=== PATIENT | female | born 1985 | race Caucasian/White ===

== ENCOUNTER → 2017-05-11 20:55 | Outpatient (CLI) | payer OTHER, SELFPAY ==
[2017-05-11 15:38] VITALS: BP 106/72; BMI 28.7
[2017-05-11 22:32] LABS: Chlamydia Trachomatis by PCR Negative (Negative); Neisserai gonorrhoeae by PCR Negative (Negative); Probe Check PASS; Sample Adequacy Control PASS; Specimen Processing Control PASS
== END ==
PROVIDERS: Family Provider Family Medicine; PCP Family Medicine; Visit Provider Nurse Practitioner Women's Health
DX: Z11.3 Encounter for screening for infections with a predominantly sexual mode of transmission (principal); Z12.4 Encounter for screening for malignant neoplasm of cervix
CPT/HCPCS: 87491; 87591

== ENCOUNTER → 2018-10-21 | Outpatient (CLI) | payer OTHER, SELFPAY ==
[2018-10-15 11:13] VITALS: BMI 28.7
--- NOTE | 2018-10-21 08:35 | RAD_ITS ---
STUDY: X-RAY - ESOPHAGUS (BARIUM SWALLOW) WITH FLUOROSCOPY REASON FOR EXAM: Female, 33 years old. Dysphagia. Chronic heartburn. TECHNIQUE: 18 view(s) of the esophagus were obtained following swallowing of barium. FLUOROSCOPY TIME (if supplied): (0:28) minutes/seconds COMPARISON: None. FINDINGS: There is no demonstrated esophageal foreign body. There is no demonstrated stricture or mucosal abnormality. Normal gastroesophageal junction, without a demonstrated hiatal hernia. The patient ingested a 12 mm tablet of barium without any difficulty. Normal visualized aortic arch and descending thoracic aorta. Normal visualized pulmonary parenchyma. Normal visualized osseous structures of the thorax. RAD/Esophagus Only IMPRESSION: Normal plain film x-ray examination (barium swallow) of the esophagus. Electronically Signed: Bautista Navarro, at 14:47 EDT , Service support ,
== END | disposition home or self-care (01) ==
PROVIDERS: Family Provider Internal Medicine; PCP Internal Medicine; Referring Provider Otolaryngology; Visit Provider Otolaryngology
DX: R13.10 Dysphagia, unspecified (principal)
CPT/HCPCS: 74220

== ENCOUNTER → 2019-10-03 18:16 | Outpatient (CLI) | payer OTHER, SELFPAY ==
[2019-10-03 10:29] VITALS: BMI 24.0
[2019-10-03 13:43] VITALS: BMI 28.7
== END ==
PROVIDERS: PCP Internal Medicine; Visit Provider Nurse Practitioner Family
DX: Z20.828 Contact with and (suspected) exposure to other viral communicable diseases (principal); J02.9 Acute pharyngitis, unspecified; R05 Cough
CPT/HCPCS: 87635; G2023; U0003

== ENCOUNTER → 2020-01-26 15:39 | Outpatient (CLI) | payer OTHER, SELFPAY ==
[2020-01-26 14:26] VITALS: BMI 25.3
[2020-01-26 16:03] LABS: Absolute Lymphocyte Count 2.95 X10^3/uL (0.83-4.51); Absolute Neutrophil Count 10.9 X10^3/uL (2.0-7.7); Basophil# 0.05 X10^3/uL; Basophil% 0.3 % (0-1); Eosinophils% 0.7 % (0-5); Hematocrit 38.2 % (37-47); Hemoglobin 13.1 g/dL (12.0-15.0); Lymphocyte # 2.95 X10^3/ul (4.0); Lymphocyte % 19.7 % (19-41); Mean Corp Hgb Conc 34.3 g/dL (32-36); Mean Corpuscular Hgb 30.4 pg (27.0-32.0); Mean Corpuscular Volume 88.6 fL (81-99); Mean Platelet Vol. 10.9 fl (6.2-12.0); Monocyte# 0.93 X10^3/uL; Monocyte% 6.2 % (0-10); NRBC Flagged by Analyzer 0 % (0-5); Neutrophil # 10.89 X10^3/uL (2.7-7.7); Neutrophil % 72.6 % (47-70); Platelet Count 317 K/mm3 (150-450); Red Blood Count 4.31 M/mm3 (4.2-5.4)
[2020-01-26 18:18] LABS: Amphetamine Urine VISTA NEGATIVE (<1000 ng/mL); Barbiturate Urine VISTA NEGATIVE (< 200 ng/mL); Benzodiazepine Urine VISTA NEGATIVE (< 200 ng/mL); Cocaine Urine VISTA NEGATIVE (< 300 ng/mL); Ecstacy Urine VISTA NEGATIVE (< 500 ng/mL); Methadone Urine VISTA NEGATIVE (< 300 ng/mL); PCP Urine VISTA NEGATIVE (< 25 ng/mL); THC Urine VISTA NEGATIVE (< 50 ng/mL); Vista UDS pH Range 6
[2020-01-27 09:29] LABS: HIV - WCH Non-Reactive (Nonreactive); Hepatitis B Surface Antigen Non-Reactive (Nonreactive); Hepatitis C Antibody Non-Reactive (Nonreactive); Rubella IgG 59.2 IU/mL
[2020-01-31 03:06] LABS: Chlamydia By Nucleic Acid AMP Negative (Negative)
[2020-01-31 12:06] LABS: Gonococcus By Nucleic Acid AMP Negative (Negative)
[2020-02-02 01:11] LABS: Rapid Plasmin Reagin (RPR) NONREACTIVE (NONREACTIVE)
== END ==
PROVIDERS: PCP Internal Medicine; Referring Provider Obstetrics & Gynecology; Visit Provider Obstetrics & Gynecology
DX: O09.90 Supervision of high risk pregnancy, unspecified, unspecified trimester (principal); Z3A.00 Weeks of gestation of pregnancy not specified
CPT/HCPCS: 36415; 80307; 85025; 86592; 86703; 86762; 86803; 86850; 86900; 86901; 87086; 87088; 87340; 87491; 87591

== ENCOUNTER → 2020-02-07 10:32 | Outpatient (CLI) | payer OTHER, SELFPAY | PROVIDERS: PCP Internal Medicine; Referring Provider Physician Assistant; Visit Provider Physician Assistant | DX: Z20.828 Contact with and (suspected) exposure to other viral communicable diseases (principal) | CPT/HCPCS: 87635; C9803; U0003 ==

== ENCOUNTER → 2020-05-14 09:18 | Outpatient (CLI) | payer OTHER, SELFPAY ==
[2020-05-14 08:07] VITALS: BMI 28.7
[2020-05-14 10:00] LABS: Absolute Lymphocyte Count 1.64 X10^3/uL (0.83-4.51); Absolute Neutrophil Count 9.1 X10^3/uL (2.0-7.7); Basophil# 0.04 X10^3/uL; Basophil% 0.3 % (0-1); Eosinophil# 0.07 X10^3/uL; Eosinophils% 0.6 % (0-5); Hematocrit 36.5 % (37-47); Hemoglobin 12.3 g/dL (12.0-15.0); Lymphocyte # 1.64 X10^3/ul (4.0); Lymphocyte % 14.1 % (19-41); Mean Corp Hgb Conc 33.7 g/dL (32-36); Mean Corpuscular Hgb 30.3 pg (27.0-32.0); Mean Corpuscular Volume 89.9 fL (81-99); Mean Platelet Vol. 11.3 fl (6.2-12.0); Monocyte# 0.65 X10^3/uL; Monocyte% 5.6 % (0-10); NRBC Flagged by Analyzer 0 % (0-5); Neutrophil # 9.11 X10^3/uL (2.7-7.7); Neutrophil % 78.2 % (47-70); Platelet Count 279 K/mm3 (150-450); RBC Distribution Width CV 12.2 % (11.6-14.6); RBC Distribution Width SD 39.9 fl (35.1-43.9); Red Blood Count 4.06 M/mm3 (4.2-5.4); White Blood Count 11.7 K/mm3 (4.4-11.0)
[2020-05-14 10:15] LABS: Fibrinogen 457 mg/dl (203-444)
== END ==
PROVIDERS: PCP Internal Medicine; Referring Provider Obstetrics & Gynecology; Visit Provider Obstetrics & Gynecology
DX: O46.90 Antepartum hemorrhage, unspecified, unspecified trimester (principal); Z3A.00 Weeks of gestation of pregnancy not specified
CPT/HCPCS: 36415; 85025; 85384

== ENCOUNTER → 2020-05-18 07:33 | Outpatient (CLI) | payer OTHER, SELFPAY ==
[2020-05-14 08:07] VITALS: BMI 28.7
[2020-05-18 08:16] LABS: Glucose Challenge Gest 1H 50g 81 mg/dL (70-140)
== END ==
PROVIDERS: PCP Internal Medicine; Referring Provider Obstetrics & Gynecology; Visit Provider Obstetrics & Gynecology
DX: Z34.90 Encounter for supervision of normal pregnancy, unspecified, unspecified trimester (principal)
CPT/HCPCS: 36415; 82950

== ENCOUNTER → 2020-07-19 | Outpatient (CLI) | payer OTHER, SELFPAY ==
[2020-07-18 16:30] VITALS: BMI 29.2
[2020-07-19 19:26] LABS: Probe Check PASS; Specimen Processing Control PASS
== END | disposition home or self-care (01) ==
LOC: LABSPEC 17:54
PROVIDERS: PCP Internal Medicine; Visit Provider Physician Assistant
DX: J06.9 Acute upper respiratory infection, unspecified (principal)
CPT/HCPCS: 87635; U0002

== ENCOUNTER → 2020-07-27 14:10 | Outpatient (CLI) | payer OTHER, SELFPAY ==
[2020-06-21 09:37] VITALS: BMI 29.5
[2020-07-20 15:51] VITALS: BMI 29.4
--- NOTE | 2020-07-27 14:11 | US_ITS ---
STUDY: SECOND AND THIRD TRIMESTER OBSTETRICAL ULTRASOUND REASON FOR EXAM: Female, 35 years old, evaluate growth. LMP: Unknown. TECHNIQUE: Transabdominal TECHNICAL QUALITY: Adequate. PRIOR ULTRASOUND: None. FINDINGS: There is a single intrauterine fetus. The fetus is in a cephalic presentation. There is demonstrated cardiac activity with a heart rate of 137 bpm. There is a normal amniotic fluid volume. The largest amniotic fluid pocket measures 3.4 cm. The amniotic fluid index (HARLEEN) is 8.9 cm. The placenta is fundal in location. There are Grade 1 placental changes. The cervix measures 3.9 cm in length. The adnexal regions are not visualized. BIOMETRY: BPD: 8.6 cm: 34 weeks, 3 days HC: 32.8 cm: 37 weeks, 1 days AC: 34.3 cm: 38 weeks, 1 days FL: 6.8 cm: 35 weeks, 0 days CI: 76.29% FL/BPD: 79.65% FL/HC: 20.81% FL/AC: 19.88% HC/AC: 0.96 age by current US: 36 weeks, 2 days. LOBITO by current US: 08/22/2020. Estimated weight: 3048 grams, +/- 457 grams. ANATOMY: anatomy is not included on this examination and is not evaluated. US/OB Limited With Biometrics IMPRESSION: Single live intrauterine fetus in cephalic presentation with an estimated gestational age of 36 weeks and 2 days. Electronically Signed: Geovanny Calix MD at 15:56 EDT Tel , Service support ,
== END ==
PROVIDERS: PCP Internal Medicine; Referring Provider Obstetrics & Gynecology; Visit Provider Obstetrics & Gynecology
DX: O09.519 Supervision of elderly primigravida, unspecified trimester (principal); Z3A.00 Weeks of gestation of pregnancy not specified
CPT/HCPCS: 76816; 87081

== ENCOUNTER → 2020-08-17 16:41 | Outpatient (CLI) | payer OTHER, SELFPAY ==
[2020-07-20 15:51] VITALS: BMI 29.4
[2020-08-17 15:44] VITALS: BMI 30.6
== END ==
PROVIDERS: PCP Internal Medicine; Visit Provider Obstetrics & Gynecology
DX: Z34.93 Encounter for supervision of normal pregnancy, unspecified, third trimester (principal)
CPT/HCPCS: 87635; C9803; U0002

== ENCOUNTER 2020-08-19 11:35 | Outpatient (CLI) | payer OTHER, SELFPAY ==
[2020-08-17 15:44] VITALS: BMI 30.6
[2020-08-19 11:57] VITALS: BP 113/75; PULSE 90
[2020-08-19 12:00] VITALS: TEMP 37.1
[2020-08-19 12:01] VITALS: BMI 29.8
--- NOTE | 2020-08-20 21:16 | OB.TRI.PN ---
Progress Notes Date of Service: 08/19/20 Progress Note: Patient presents for triage evaluation secondary to dec fm FHT: 120 Moderate variability reactive no decelerations category I tracing [place]: no regular Contractions Assessment and plan: dec fm, now feeling Reactive NST, reassuring maternal and status patient discharged to home to follow-up as scheduled. See problem list details for additional plan information. Assessment & Plan Assessment/Plan (1) Decreased movements in third trimester: QUALIFIERS: Fetus number: single or unspecified fetus Qualified Code(s): O36.8130 - Decreased movements, third trimester, not applicable or unspecified PLAN: reactive nst Procedures Urinary/Genital 52xxx-59xxx: 34241-26 non-stress test Interp
== END 2020-08-19 12:40 | disposition home or self-care (01) ==
LOC: WPOUT 11:46 → WP 11:47
PROVIDERS: PCP Internal Medicine; Visit Provider Obstetrics & Gynecology
DX: O36.8130 Decreased fetal movements, third trimester, not applicable or unspecified (principal); Z3A.00 Weeks of gestation of pregnancy not specified
CPT/HCPCS: 59025; 59050; 99218; G0378

== ENCOUNTER → 2020-08-24 07:28 | Outpatient (CLI) | payer OTHER, SELFPAY ==
[2020-08-17 15:44] VITALS: BMI 30.6
[2020-08-19 12:01] VITALS: BMI 29.8
--- NOTE | 2020-08-24 07:33 | US_ITS ---
STUDY: SECOND AND THIRD TRIMESTER OBSTETRICAL ULTRASOUND - LIMITED REASON FOR EXAM: Female, 35 years old routine survey LMP: 11/18/2019 PRIOR ULTRASOUND: 07/27/2020 TECHNIQUE: Transabdominal TECHNICAL QUALITY: Adequate. FINDINGS: There is a single intrauterine fetus. The fetus is in a cephalic presentation. There is demonstrated cardiac activity with a heart rate of 133 bpm. There is a normal amniotic fluid volume. The largest amniotic fluid pocket measures 3.0 cm. The amniotic fluid index (HARLEEN) is 6.6 cm. The placenta is fundal in location. There are Grade 2 placental changes. The cervix was not measured BIOMETRY: BPD: 9.4 cm: 38 weeks, 3 days HC: 35.4 cm: 41 weeks, 3 days AC: 35.2 cm: 39 weeks, 1 days FL: 7.6 cm: 38 weeks, 5 days Age by LMP: 40 weeks, 0 days. LOBITO by LMP: 08/23/2020. age by prior US: 40 weeks, 1 days. LOBITO by prior US: 08/22/2020. age by current US: 39 weeks, 3 days. LOBITO by current US: 08/28/2020. Estimated weight: 3706 grams, +/- 541 grams, 58 percentile. Gender: Indeterminant Incidental note is made of bilateral hydroceles within the scrotum US/OB Limited With Biometrics IMPRESSION: Single live intrauterine at 39 weeks, 3 days with heart rate of 133 bpm. LOBITO of 08/28/2020. Normal growth noted since the previous study. Incidental note is made of scrotal hydroceles Electronically Signed: Miguel Richard MD at 10:35 EDT , Service support ,
== END ==
PROVIDERS: PCP Internal Medicine; Referring Provider Obstetrics & Gynecology; Visit Provider Obstetrics & Gynecology
DX: O48.0 Post-term pregnancy (principal); Z3A.00 Weeks of gestation of pregnancy not specified
CPT/HCPCS: 76816

== ENCOUNTER 2020-08-24 18:45 | Inpatient (IN) | payer OTHER, SELFPAY ==
[2020-08-24 08:23] VITALS: BMI 29.8
[2020-08-24 19:38] VITALS: BMI 29.3
[2020-08-24 19:43] VITALS: BP 126/81; PULSE 73
[2020-08-24 19:45] VITALS: PULSE 80; TEMP 37.3; O2SAT 99
[2020-08-24] MEDS: Lactated Ringers 1,000 ML 50 ML IV (19:45)
[2020-08-24 20:00] LABS: Absolute Lymphocyte Count 1.87 X10^3/uL (0.83-4.51); Basophil# 0.03 X10^3/uL; Basophil% 0.3 % (0-1); Eosinophil# 0.06 X10^3/uL; Eosinophils% 0.6 % (0-5); Hematocrit 35.1 % (37-47); Lymphocyte # 1.87 X10^3/ul (0.83-4.51); Lymphocyte % 17.2 % (19-41); Mean Corp Hgb Conc 34.2 g/dL (32-36); Mean Corpuscular Hgb 30.5 pg (27.0-32.0); Mean Corpuscular Volume 89.1 fL (81-99); Mean Platelet Vol. 12.1 fl (6.2-12.0); Monocyte# 0.79 X10^3/uL; Monocyte% 7.3 % (0-10); NRBC Flagged by Analyzer 0 % (0-5); Neutrophil # 8.02 X10^3/uL (2.7-7.7); Neutrophil % 73.7 % (47-70); Platelet Count 233 K/mm3 (150-450); RBC Distribution Width CV 12.6 % (11.6-14.6); RBC Distribution Width SD 41.3 fl (35.1-43.9); Red Blood Count 3.94 M/mm3 (4.2-5.4); White Blood Count 10.9 K/mm3 (4.4-11.0)
[2020-08-24 20:11] VITALS: PULSE 90; O2SAT 98
[2020-08-24] MEDS: miSOPROStol 25 MCG TABLET VAGINAL (20:58)
[2020-08-24] MEDS: DiphenhydrAMINE 50 MG/ML Syringe IV (21:16)
[2020-08-24] MEDS: Famotidine 20 MG Tablet PO (21:16)
[2020-08-24 21:24] VITALS: BP 126/79; PULSE 75
[2020-08-24 21:25] VITALS: PULSE 85; TEMP 36.6; O2SAT 100
[2020-08-24] MEDS: Mag Hydrox/Al Hydrox/Simeth 30 ML UDC PO (23:25)
[2020-08-25] VITALS (54 sets, daily range): BP systolic 108–142; BP diastolic 58–87; PULSE 74–129; RESP 16–18; TEMP 36.1–37.7; O2SAT 83–100
--- NOTE | 2020-08-25 | PLAC_PTH ---
PATIENT: AMY REDDY LOC: [facility] U#:[id number] AGE/SX: 35/F ROOM: WP020 RE08/24/[address]: Dr. Nelly Walker MD : 1985 BED: 1 DIS: 08/27/2020 SPEC #: [id number] RECD: 08/25/20 17:45 STATUS: SHANIA MCNAMARA #: [id number] CRYS: 08/25/20 00:[address]: Nelly Walker DEPT: SURGICAL PATHOLOGY RECD BY: Tomer Lynch ENTERED: 08/27/20 07:52 SP TYPE: PLACENTA OTHR DR: Dr. Dwight Rios MD Tissues: Placenta, NOS Procedures: Surgery Specimen Level V HEADER OPERATION: Primary section PRE-OP DIAGNOSIS: Labor TISSUE SUBMITTED: Placenta MICROSCOPIC DIAGNOSIS Placenta: Placental disc - third trimester placenta (435 gm). Membranes - no pathologic diagnosis. Umbilical cord - three blood vessels and no pathologic diagnosis. MADELINE:valentine 08/28/2020 MICROSCOPIC DESCRIPTION Slides are reviewed. GROSS DESCRIPTION SPECIMEN: PLACENTA / CLINICAL INFORMATION: A. Weight: 3.35 kg B. Gestational Age: 40 weeks C. Sex: Male PLACENTAL WEIGHT (POST FIXATION): 435 gm PLACENTAL DIMENSIONS: 17 x 17 x 3 cm PLACENTAL SHAPE: Usual ovoid PLACENTAL WEIGHT FOR GESTATIONAL AGE: Within 10-99th percentile MEMBRANES - Present A. Insertion: Marginal B. Site of rupture from edge: 9 cm from edge of placental disc C. Color of membrane: Givens-dominguez D. Abnormalities: None UMBILICAL CORD - Present A. Color: Givens-dominguez B. Insertion: Paracentral C. Length: 48 cm D. Diameter: Up to 1.5 cm E. Number of vessels: Three F. Abnormalities: None PLACENTAL DISC - Present A. Color of surface: Givens-dominguez B. surface abnormalities: None C. Maternal cotyledons: Intact with minimal tears D. Attached retro placental clot: No clot E. Cut surface: Dark red and spongy F. Lesions: None G. Separate clot: Absent SECTIONS SUBMITTED: 1. Membrane roll 2. Cord, maternal end 3. Cord, end 4. Placental disc, and maternal surfaces 5. Placental disc, and maternal surfaces 6. Placental disc, and maternal surfaces SJ:valentine 08/27/20 TC:4 CPT: 27802
[2020-08-25] MEDS: miSOPROStol 25 MCG TABLET VAGINAL ×3 (01:04→09:47)
[2020-08-25] MEDS: Acetaminophen 500 MG Tablet 1000 MG PO ×2 (01:46→17:46)
[2020-08-25] MEDS: 0.9% Saline Lock 10 ML Syringe IV ×2 (07:38→09:36)
--- NOTE | 2020-08-25 07:49 | HP.PCM_ITS ---
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 Required: No Is patient in pain?: No Allergies Penicillins Allergy (Verified 08/19/20 12:04) Rash Sulfa (Sulfonamide Antibiotics) Allergy (Verified 08/19/20 12:04) Rash Medications multivitamin no.47-iron fum 27 mg-folate no.1 1 mg-dha 300 mg capsule 1 cap PO DAILY 01/16/20 [History Confirmed 08/24/20] ondansetron 4 mg disintegrating tablet 4 mg PO Q8H PRN #30 tab 02/22/20 [Rx Confirmed 08/24/20] famotidine 20 mg tablet 20 mg PO BID #60 tab 06/21/20 [Rx Confirmed 08/24/20] docusate sodium [Colace Clear] 1 mg PO DAILY 08/19/20 [History Confirmed 08/24/20] Last Menstral Period: 11/26/19 Zika: Zika virus screening: Negative : No PFSH PFSH Medical History (Updated 08/24/20 @ 09:[address] Nelly Walker MD) Anxiety Frequent UTI GERD (gastroesophageal reflux disease) Family History Unknown Ovarian cancer Grandfather Alcohol abuse Mother Anemia Anxiety Grandmother Pancreatic cancer Grandmother Diabetes Heart disease Father Hypertension Social History Smoking Status: Never smoker second hand exposure: No alcohol intake: current alcohol intake frequency: holidays/special occasions only substance use type: does not use caffeine: Yes what type of physical activity do you participate in: running, bicycling, yoga and weight training frequency: daily seatbelt use: always do you feel safe at home: Yes additional social history: - 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 OB Visit LOBITO Calculator Estimated Delivery Date Method Current WG Current Estimate 08/24/20 Ultrasound #1 40w 0d Other Estimates 09/01/20 LMP (Certain) 38w 6d Expected Delivery Route/Plan by 40-41, recommend NST and HARLEEN at 40 if goes to 41 Labor Preferences- CB/BF classes: 07/14 labor support person: yoselyn labor intervention preferences: none pain management options preferred: open cut cord/dad catch: yes : yes PP control planned: IUD at 6w PP visit discussed possible routes of delivery and associated risks: discussed possible delivery modalities and possible indications for each including R/B/A of , VAVD, and CS. questions answered. special requests: Specific Issue/Plans flu vaccine: decline tdap vaccine: given rhogam: na LARC form signed: declined movement and labor precautions reviewed. Problem list reviewed and updated with the most current plan of care details and appropriate orders placed. Relevant counseling for the gestational age provided. Continue routine care and follow up unless otherwise noted in visit notes/problem list details Initial Weight: 140 lb Date EGA Weight BP Urine Prot Glucose FHR FuHt Pres Dilation Effaced St Visit Note 01/26/20 9w 6d 143 lb 4 oz (+3 lb 4 oz) 122/76 185 GP -CRL 27mm NOT consistent with LMP. Due date changed. 02/22/20 13w 5d 147 lb 6 oz (+7 lb 6 oz) 126/80 Negative Negative 150 GP - no cramping or bleeding. Having continued nausea. Zofran prescribed. Anatomy scan ordered. 03/21/20 17w 5d 148 lb (+8 lb) 120/82 Negative Negative 155 GP - no cramping or bleeding. Anatomy scan scheduled. Answered questions about exercise in . 04/20/20 22w 0d 155 lb (+15 lb) 104/80 Negative Negative 150 SM- no vb lof good fm no regular ctx obtain anatomy scan 05/14/20 25w 3d 162 lb (+22 lb) 114/74 145 25 0 SM- add on for acute bleeding- had a lot of vomiting this weekend and has been lifting and moving, no intercourse. rh pos. brown/pink discharge no heavy bleeding or clots. good fm no regular ctx 05/18/20 26w 0d 163 lb (+23 lb) 100/72 Negative Negative 140 SM- no vb lof good fm no regular ctx 06/08/20 29w 0d 166 lb (+26 lb) 124/80 Negative Negative 140 29 SM- no vb lof good fm no reuglar ctx 06/21/20 30w 6d 166 lb 8 oz (+26 lb 8 oz) 120/80 Negative Negative 140 31 GP - no LOF, VB, DFM, ctx. LARC form signed. 07/05/20 32w 6d 165 lb 4 oz (+25 lb 4 oz) 118/70 Negative Negative 125 32 GP - no LOF, VB, DFM, ctx. Denies complaints. 07/20/20 35w 0d 166 lb (+26 lb) 132/80 140 35 SM- no vb lof good fm no regular ctx reviewed labor precautions 07/27/20 36w 0d 173 lb (+33 lb) 124/80 125 36 Cephalic 0 GP - no LOF, VB, DFM, ctx. GBS done today. Growth US and HARLEEN nl. 08/03/20 37w 0d 171 lb (+31 lb) 114/66 Negative Negative 135 37 Cephalic GP - no LOF, VB, DFM, ctx. Denies complaints. 08/10/20 38w 0d 171 lb (+31 lb) 132/88 125 38 Cephalic SM- no vb lof good fm no regular ctx discussed IOL 40-41 weeks 08/17/20 39w 0d 173 lb (+33 lb) 114/80 Negative Negative 135 39 Cephalic 0 SM- no vb lof good fm no regular ctx. discussed exp mgt vs IOL. plan growth us and nst at 40 weeks 08/24/20 40w 0d 172 lb (+32 lb) 118/82 Negative Negative 135 Cephalic 0 0 -3 SM- no vb lof good fm no regular ctx, borderline low HARLEEN discussed IOL. plan cytotec ACOG First Trimester First Trimester: Desire for , Alcohol, Tobacco Cessation, Illicit/Recreational Drug/Substance Use, Intimate Partner Violence, Barriers to care, Unstable Housing, Communication Barriers, Environmental/Work Hazards, Anticipated Course of Care, Toxoplasmosis Precations, Use of Any medications, Sexual activity, Exercise, Dental Care, Sauna/Hot tub use, Seat Belt use, Childbirth classes/Hospital facilities, , Travel, Indications for Ultrasound and Screening for Aneuploidy Second Trimester Second Trimester: Signs and Symptoms of Labor, Selecting a care provider, Reproductive Life Planning & Contreception, Care Planning, Tobacco Cessation, Depression/Anxiety and Intimate Partner Violence Third Trimester Third Trimester: Pain Management Plans, Labor support person(s), Immediate Larc, Movement Monitoring and Infant Feeding Yes ; Discussed Trial of Labor after Counseling and Discussed Circumcision preference Diagnostics Diagnostics Diagnostics: No Data to Display ROS Const Reports system reviewed and no additional complaints, except as documented Card Reports system reviewed and no additional complaints, except as documented Resp Reports system reviewed and no additional complaints, except as documented GI Reports system reviewed and no additional complaints, except as documented and Reports nausea Reports system reviewed and no additional complaints, except as documented Musc Reports system reviewed and no additional complaints, except as documented Exam Const General: cooperative, healthy appearing, comfortable and anxious HENMT Head: normal to inspection Nose: external nose normal Face and sinus: normal facial exam Neck Neck: normal visual inspection, full ROM and no lymphadenopathy Thyroid: thyroid normal Chest Chest palpation & inspection: normal inspection of the chest Resp Effort & Inspection: normal respiratory effort GI Inspection: normal to inspection Palpation: soft and other (gravid uterus) Other: infant vertex and appropriate size for gestational age Other: Cervical Exam: Extrem General: pedal edema Results POC Urinalysis 2 Dip (Clinic) Office Urine Glucose Negative Last Edit by Arleen Nash on 08/24/20 08:24 Office Urine Protein Negative Last Edit by Arleen Nash on 08/24/20 08:24 Coding Level of Care Code OB Routine Diagnoses Decreased movements in third trimester O36.8130 Fetus number: single or unspecified fetus 33 weeks gestation of Z3A.33 Supervision of high risk , antepartum O09.90 Z3A.40 Weeks of gestation: 40 weeks AMA (advanced maternal age) primigravida 35+ O09.513 Trimester: third trimester GERD (gastroesophageal reflux disease) K21.9 Esophagitis presence: without esophagitis HARLEEN (amniotic fluid index) borderline low O28.8 Assessment and Plan Assessment and Plan (1) Decreased movements in third trimester: Status: Acute Qualifiers: Fetus number: single or unspecified fetus Qualified Code(s): O36.8130 - Decreased movements, third trimester, not applicable or unspecified Comment: reactive NST, kick counts. 08/19 (2) 33 weeks gestation of : Status: Acute Comment: COVID test ordered 07/11/20 (mer 08/17 at 4:30pm) (3) Supervision of high risk , antepartum: Status: Acute Comment: PRR LOBITO 08/24/20 [place]! Spouse:Yoselyn (4) : Status: Acute Qualifiers: Weeks of gestation: 40 weeks Qualified Code(s): Z3A.40 - 40 weeks gestation of Comment: declined genetic, carrier and NTD. NL anatomy. gbs negative. (5) AMA (advanced maternal age) primigravida 35+: Status: Acute Qualifiers: Trimester: third trimester Qualified Code(s): O09.513 - Supervision of elderly primigravida, third trimester Comment: growth scan at 36 weeks (6) GERD (gastroesophageal reflux disease): Status: Chronic Qualifiers: Esophagitis presence: without esophagitis Qualified Code(s): K21.9 - Gastro-esophageal reflux disease without esophagitis Comment: pepcid Plan - Dr. Nelly Walker MD: Patient presents IOL, plan management for with .cytotec Pain management: plans epidural. GBS negative. Management of any complications: ama, borderline low harleen I have reviewed the [facility] and made any clinically relevant updates.
[2020-08-25] MEDS: Lactated Ringers 500 ML 999 ML IV ×2 (09:37→11:05)
[2020-08-25] MEDS: Terbutaline 1 MG/ML Vial 0.25 MG SC (11:12)
--- NOTE | 2020-08-25 11:38 | PN_ITS ---
Progress Note IV fluid bolus oxygen AROM thick meconium FSE and IUPC placed. Terbutaline given for suspected hyperstimulation current tracing: FHT: 160 Moderate variability reactive no decelerations category II tracing [place]: Contractions q 2-3 reviewed tracing abnormalities since last note: Period of absent to minimal variability with recurrent late decelerations, resolved with terbutaline and other interventions. Minimal variability still present but no recurrent decelerations. Huddle performed with nursing and will manage expectantly and reevaluate shortly to determine if additional interventions or delivery modality needs to be addressed. A/P: Category 2 tracing, physician in-house monitoring tracing and reviewing with nursing. s/p terb and IVF, position changes, oxygen, internal monitors placed.
[2020-08-25] MEDS: Ondansetron 4 MG/2 ML Vial IV (11:50)
[2020-08-25] MEDS: fentaNYL-bupivacaine (epidural) 100 ML BAG EPIDURAL (12:32)
[2020-08-25] MEDS: Lactated Ringers 1,000 ML 200 ML IV (12:33)
--- NOTE | 2020-08-25 13:20 | EX.PCM.OBRPT ---
Assessment & Plan (1) Category II heart rate tracing during labor and delivery: (2) AMA (advanced maternal age) primigravida 35+: QUALIFIERS: Trimester: third trimester Qualified Code(s): O09.513 - Supervision of elderly primigravida, third trimester COMMENT: growth scan at 36 weeks (3) : QUALIFIERS: Weeks of gestation: 40 weeks Qualified Code(s): Z3A.40 - 40 weeks gestation of COMMENT: declined genetic, carrier and NTD. NL anatomy. gbs negative. (4) Supervision of high risk , antepartum: COMMENT: PRR LOBITO 08/24/20 [place]! Spouse:Bertrand (5) 33 weeks gestation of : COMMENT: COVID test ordered 07/11/20 (on license of [facility] 08/17 at 4:30pm) (6) HARLEEN (amniotic fluid index) borderline low: COMMENT: recommend IOL 40 weeks due to AMA and this (7) GERD (gastroesophageal reflux disease): QUALIFIERS: Esophagitis presence: without esophagitis Qualified Code(s): K21.9 - Gastro-esophageal reflux disease without esophagitis COMMENT: pepcid Maternal Data Information LOBITO Calculator Estimated Delivery Date Method Current WG Current Estimate 08/24/20 Ultrasound #1 40w 1d Other Estimates 09/01/20 LMP (Certain) 39w 0d Final LOBITO Source: LMP Gestational age: 39 Details Operative Information Date of Procedure: 08/25/20 Pre-Operative Diagnosis: iol AMA/borderline HARLEEN Post-Operative Diagnosis: same Indications for : Nonreassuring Status (persistent Cat II tracing) Indications Narrative: 35-year-old G1, P0 presents at 40 weeks for induction of labor secondary to advanced maternal age and borderline HARLEEN. Patient underwent Cytotec induction of labor and then developed absent to minimal variability with recurrent decelerations. Patient was given terbutaline and interventions were done to resolve the tracing which decelerations resolved and moderate variability was present. Expectant management was performed and then recurrent late decelerations returned with minimal variability, no accelerations with scalp stimulation and patient was still remote from delivery 1-2 50 and -2. Decision was made to proceed with primary low transverse . Classification: JOHNIE Procedure Type: low transverse mine analyst #1: Betty Caceres Type of Anesthesia: Epidural Special Medications: none Antibiotic Given: Clindamycin 600mg IV x1 and Gentamicin 1.5mg/kg IV x1 and Zithromax 500 mg/5 mL X1 Drain: Landis to straight drain Estimated Blood Loss: 600 Fluids Replaced: crystalloid Findings Description of Procedure: The patient was placed in the dorsal supine position with leftward tilt. Patient was prepped and draped in the normal sterile fashion. Pfannenstiel skin incision was made with the scalpel and carried through to the underlying layer of fascia with the scalpel. Fascia was nicked in the midline and the incision extended laterally. The rectus bellies were dissected off superiorly and inferiorly with out complication both sharply and bluntly. The peritoneum was entered digitally. The incision was stretched and a low transverse uterine incision was made with the scalpel. The infant's head was delivered atraumatically followed by the anterior and posterior shoulders without complication the rest of the delivered. The cord was clamped and cut and the was handed off to awaiting nurse. The placenta was delivered spontaneously immediately following and was noted to be intact and have a three-vessel cord. The uterus was exteriorized cleared of all clots and debris, and the incision was closed in a double layer closure using #1 Monocryl. The ovaries and fallopian tubes were noted to be within normal limits. The uterus was returned to the maternal abdomen and gutters were cleared of all clots and debris. The peritoneum was closed with 3-0 Monocryl in a running fashion. Gloves were changed prior to fascial closure. Fascia was closed with 0 PDS in a running fashion. Subcutaneous tissue was copiously irrigated and the skin was closed with 3-0 Monocryl in a subcuticular fashion. Mepilex dressing was applied without complication. Patient was taken to recovery in stable condition. It was discussed with the patient that based on the clinical information obtained during this encounter, combined with her history, at this time I would recommend vaginal or cesareans for future deliveries if further pregnancies are desired. Amniotic Membrane Rupture Type: Artificial Amniotic Fluid Description: Thick meconium Placental Delivery Description: Spontaneous Placenta Disposition: [facility] Cord Vessel Description: 3 Vessels Cord Entanglement: None Cord Gases: ABG and VBG Infant A Gender: Male Delayed Cord Clamping: Yes Complications Risks of Surgery Discussed w/Patient: Bleeding, Infection, Need for Future C-Sections and Injury to surrounding structure(s) including bowel and bladder Complications: none Vaginal Delivery Complication Complications: None Admit VTE Documentation VTE Present on Admission: No VTE Mechan Device Prophylaxis: SCD's Procedures Urinary/Genital 52xxx-59xxx: [id number] [facility]
--- NOTE | 2020-08-25 14:05 | DCINST_ITS ---
Discharge Instructions Diet Discharge Diet: No restrictions Activity Discharge Activity: May Not Drive (for 2 weeks), May not drive while taking narcotic pain medications., May Shower and May Take a Tub Bath (in 7 days) May shower in (days): 0 May resume sexual activity in: 4-6 weeks Weight Bearing Status: Full weight bearing Lifting Restrictions: 20 pounds Dressing / Incision Call your doctor if your incision/area has: Continuous Slow Oozing, Sudden Increased Bleeding, Increased Pain/ Swelling, Increased Redness and Foul Smel ling Discharge Call your doctor if you observe: Fever of 101 or Higher and Using more than one pad per hour (for 2 hours) Suture Line Care: Avoid Pulling/Pushing and Avoid Pinching/Bending Cleanse incision/area with: Soap & Water and Keep Dressing Clean & Dry Follow Up Care Please Follow Up With: Nelly Walker MD When: Call [phone] to make an appointment for an incision check in 1-2 weeks. Test Results: Test results from this visit will be discussed in further detail at your follow-up appointment, if applicable. Discharge Plan Admission Admit Date/Time: 08/24/20 18:45 Primary Reason for Your Visit: delivery Attending Provider: Nelly Walker Primary Care Provider: Dwight Rios Discharge Orders/Prescriptions Prescriptions: New oxycodone-acetaminophen [Endocet] 5-325 mg tablet 1 tab PO Q4H PRN (Reason: pain) 7 Days Qty: 20 RF: 0 naproxen 250 MG tablet 250 - 500 mg PO Q8H PRN PRN (Reason: MILD PAIN) Qty: 30 RF: 1 Continued PNV-DHA 27 mg iron-1 mg -300 mg capsule 1 cap PO DAILY RF: 0 ondansetron 4 mg tablet,disintegrating 4 mg PO Q8H PRN (Reason: nausea and vomiting) Qty: 30 RF: 3 Colace Clear 50 mg Capsule 1 mg PO DAILY RF: 0 calcium carbonate-simethicone 500-20 mg Tablet,Chewable 1 tab PO PRN PRN (Reason: Heartburn) RF: 0 famotidine [Pepcid] 20 mg tablet 20 mg PO ACHS RF: 0 Referrals / Follow Up: Dwight Rios MD [Primary Care Provider] - Nelly Walker MD [STAFF PHYSICIAN] -
[2020-08-25] MEDS: Oxytocin 30 units/NS 500 ml 30 UNITS/500 ML IV.SOLN 167 UNITS IV (14:35)
[2020-08-25] MEDS: Ketorolac 30 MG/ML Syringe IV ×2 (14:49→20:23)
[2020-08-25] MEDS: Lactated Ringers 1,000 ML 100 ML IV (17:41)
[2020-08-26] VITALS (13 sets, daily range): BP systolic 104–115; BP diastolic 55–69; PULSE 65–85; RESP 16–18; TEMP 36.4–36.9; O2SAT 97–99
[2020-08-26] MEDS: Acetaminophen 500 MG Tablet 1000 MG PO ×4 (00:20→18:35)
[2020-08-26] MEDS: Ketorolac 30 MG/ML Syringe IV ×2 (02:38→08:38)
[2020-08-26] MEDS: 0.9% Saline Lock 10 ML Syringe IV ×2 (02:38→08:37)
[2020-08-26 06:15] LABS: Hematocrit 32.2 % (37-47); Hemoglobin 10.7 g/dL (12.0-15.0); Mean Corp Hgb Conc 33.2 g/dL (32-36); Mean Corpuscular Volume 90.2 fL (81-99); Mean Platelet Vol. 11.7 fl (6.2-12.0); Platelet Count 201 K/mm3 (150-450); RBC Distribution Width CV 12.6 % (11.6-14.6); RBC Distribution Width SD 41.6 fl (35.1-43.9); Red Blood Count 3.57 M/mm3 (4.2-5.4); White Blood Count 14.9 K/mm3 (4.4-11.0)
--- NOTE | 2020-08-26 07:03 | PCM.PN.OB ---
Subjective Subjective Patient doing well without complaints. Tolerating PO. Ambulating and voiding without difficulty. feeding well. Denies chest pain, shortness of breath, calf pain/swelling, fevers, chills, lightheadedness. Objective Data Objective Data Vital Signs: Vital Signs Temp Pulse Resp BP Pulse Ox 98.4 F 70 17 104/69 99 08/26/20 04:17 08/26/20 04:17 08/26/20 04:17 08/26/20 04:17 08/26/20 04:17 Oxygen Delivery Method Room Air Weight: 171 lb 3.2 oz Body Mass Index (BMI) 29.3 Intake & Output: Intake and Output for Last 24 Hours 08/24/20 08/25/20 08/26/20 23:59 23:59 23:59 Intake Total 3667.24 / 3667.24 Output Total 350 / 350 400 / 400 Balance 3317.24 / 3317.24 -400 / -400 Lab / Micro Data Result Diagrams: 08/26/20 06:10 Labs: Laboratory Results - last 24 hr 08/26/20 06:10 WBC 14.9 H RBC 3.57 L Hgb 10.7 L Hct 32.2 L MCV 90.2 MCH 30.0 MCHC 33.2 RDW Std Deviation 41.6 RDW Coeff of Mana 12.6 Plt Count 201 MPV 11.7 ROS Constitutional Constitutional: Reports systems reviewed and no addt'l complaints, except as documented Cardiovascular Cardiovascular: Reports systems reviewed and no addt'l complaints, except as documented Respiratory/Chest Respiratory/Chest: Reports systems reviewed and no addt'l complaints, except as documented Gastrointestinal Gastrointestinal: Reports systems reviewed and no addt'l complaints, except as documented Physical Exam Const alert, oriented x3 and no apparent distress HEENT Head and Scalp: atraumatic Resp normal respiratory effort GI soft to palpation and non-tender Inspection: incision intact, healing well and drainage (none) Bimanual Exam - Vag & Uterus: uterus non-tender Uterus Palpation: uterus fundus firm (below Umbilicus) Assessment & Plan (1) delivery delivered: COMMENT: LTCS SM cat II tracing IOL AMA [place] 1-2 cm PLAN: s/p LTCS PPD # 1 1. routine post care 2. breast feeding- support given 3. rh positive 4. rubella immune
[2020-08-26] MEDS: Senna/Docusate Sodium 1 Tablet PO (11:01)
[2020-08-26] MEDS: Naproxen 250 MG Tablet 500 MG PO (16:40)
[2020-08-26] MEDS: oxyCODONE 5 MG Tablet PO (22:28)
[2020-08-27] MEDS: Naproxen 250 MG Tablet 500 MG PO ×2 (00:02→08:27)
[2020-08-27] MEDS: Acetaminophen 500 MG Tablet 1000 MG PO ×3 (00:03→12:42)
[2020-08-27 00:19] VITALS: BP 114/61; PULSE 86; RESP 16; TEMP 37
[2020-08-27 04:24] VITALS: BP 125/66; PULSE 66; RESP 18; TEMP 37.3
[2020-08-27 04:27] VITALS: BP 125/66; PULSE 83
[2020-08-27 07:22] VITALS: BP 113/65; PULSE 84
[2020-08-27 07:49] VITALS: BP 113/65; PULSE 84; RESP 16; TEMP 36.6
[2020-08-27] MEDS: Senna/Docusate Sodium 1 Tablet PO (08:27)
--- NOTE | 2020-08-27 08:35 | PCM.PN.OB ---
Subjective Subjective Patient doing well without complaints. Tolerating PO. Ambulating and voiding without difficulty. feeding well. Denies chest pain, shortness of breath, calf pain/swelling, fevers, chills, lightheadedness. Objective Data Objective Data Vital Signs: Vital Signs Temp Pulse Resp BP Pulse Ox 98 F 84 16 113/65 97 08/27/20 07:49 08/27/20 07:49 08/27/20 07:49 08/27/20 07:49 08/26/20 08:00 Oxygen Delivery Method Room Air Weight: 171 lb 3.2 oz Body Mass Index (BMI) 29.3 Intake & Output: Intake and Output for Last 24 Hours 08/25/20 08/26/20 08/27/20 23:59 23:59 23:59 Intake Total 3667.24 / 3667.24 Output Total 350 / 350 400 / 400 Balance 3317.24 / 3317.24 -400 / -400 Lab / Micro Data Result Diagrams: 08/26/20 06:10 Physical Exam Const alert and oriented x3 HEENT normocephalic Eyes PERRL Neck full ROM Resp normal respiratory effort GI soft to palpation GI Narrative: FF below U. Dressing dry and intact Palpation: tender other (appropriately) Assessment & Plan (1) delivery delivered: COMMENT: LTCS SM cat II tracing IOL AMA [place] 1-2 cm PLAN: s/p LTCS PPD #1 1. routine post care 2. breast feeding- support given 3. rh positive 4. rubella immune
[2020-08-27] MEDS: oxyCODONE 5 MG Tablet PO (09:42)
[2020-08-28 14:28] LABS: Pathology Specimen OB SEE PATHOLOGY REPORT
== END 2020-08-27 14:10 | disposition home or self-care (01) | DRG 788 ==
PROVIDERS: Admitting Provider Obstetrics & Gynecology; PCP Internal Medicine; Referring Provider Obstetrics & Gynecology; Visit Provider Obstetrics & Gynecology
DX: O77.0 Labor and delivery complicated by meconium in amniotic fluid (principal); O76 Abnormality in fetal heart rate and rhythm complicating labor and delivery; Z3A.40 40 weeks gestation of pregnancy; Z37.0 Single live birth
CPT/HCPCS: 59025; 59050; 85025; 85027; 86850; 86900; 86901; 88307; 99218; 99251; J7120; A4216; G0378; G0463; J2405

== ENCOUNTER → 2020-09-24 11:00 | Outpatient (CLI) | payer OTHER, SELFPAY | PROVIDERS: PCP Internal Medicine; Referring Provider Obstetrics & Gynecology; Visit Provider Obstetrics & Gynecology | DX: Z39.1 Encounter for care and examination of lactating mother (principal) | CPT/HCPCS: 96158 ==

== ENCOUNTER → 2020-10-04 | Outpatient (CLI) | payer OTHER, SELFPAY ==
[2020-10-04 11:34] VITALS: BMI 29.3
[2020-10-12 09:32] LABS: HPV APTIMA, High Risk Negative (Negative)
== END | disposition home or self-care (01) ==
PROVIDERS: PCP Internal Medicine; Referring Provider Obstetrics & Gynecology; Visit Provider Obstetrics & Gynecology
DX: Z12.4 Encounter for screening for malignant neoplasm of cervix (principal)
CPT/HCPCS: 87624; 88175; G0145

== ENCOUNTER → 2021-12-06 | Outpatient (CLI) | payer OTHER, SELFPAY ==
[2021-12-06 18:19] LABS: Mucous, Urine 0 SEEN /hpf (<or=2+); Red Blood Cells-Urine 0 SEEN /hpf (0-5)
[2021-12-06 18:22] LABS: Color, Urine Yellow (Yellow); Glucose, Dipstick Normal (Normal); Ketone-Dipstick Negative (Negative); Leukocyte Esterase-Dipstick Negative /ul (Negative); Nitrite-Dipstick Negative (Negative); Occult Blood-Urine Negative /ul (Negative); Protein-Dipstick Negative (Negative); Urine Bilirubin Dipstick Negative (Negative); Urine Clarity Clear (Clear); Urine Urobilinogen Normal (Normal)
[2021-12-06 18:33] LABS: Bacteria 3+ /hpf (None Seen); Squamous Epithelial Cells - UA 0-5 SEEN /hpf (5-10); White Blood Cells 0-5 SEEN /hpf (0-5)
== END | disposition home or self-care (01) ==
PROVIDERS: PCP Internal Medicine; Referring Provider Physician Assistant Surgical; Visit Provider Physician Assistant Surgical
DX: R35.0 Frequency of micturition (principal)
CPT/HCPCS: 81001; 87077; 87086; 87088; 87186

== ENCOUNTER 2022-12-16 12:15 | Day surgery (SDC) | payer OTHER, SELFPAY ==
[2022-12-16] VITALS (7 sets, daily range): BP systolic 99–109; BP diastolic 60–74; PULSE 74–90; RESP 16–17; TEMP 36.4–37.1; O2SAT 96–100; BMI 24.1
[2022-12-16] MEDS: Doxycycline 100 MG CAPSULE PO (12:46)
[2022-12-16] MEDS: Lactated Ringers 1,000 ML 15 ML IV (12:46)
--- NOTE | 2022-12-16 13:04 | PCM.HP.BLA ---
History and Physical Vital Signs 12/11/2313:02 12/16/2307:09 12/16/2307:10 Height 5 ft 4 in 5 ft 4 in 5 ft 4 in Weight: 140 lb BMI 24.0 BP 112/72 Intake Visit Reasons: repeat us *rm 2* Allergies Penicillins Allergy (Verified 12/11/22 14:00) RashSulfa (Sulfonamide Antibiotics) Allergy (Verified 12/11/22 14:00) Rash Is last menstrual period known: Yes Last Menstrual Period: 10/07/22 Post menopausal: No : No PFSH Medical History Abnormal Pap smear of cervix Anxiety delivery delivered COVID-19 Encounter for IUD removal Family history of hearing loss at age younger than 7 years Frequent UTI GERD (gastroesophageal reflux disease) Urinary frequency Surgical History History of surgery [place] teeth extracted Family History Unknown Ovarian cancerGrandfather Alcohol abuseMother Anemia AnxietyGrandmother Pancreatic cancerGrandmother Diabetes Heart diseaseFather Hypertension Social History adopted: No household members: spouse and children number of children: 1 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 animals: Yes pets and animals: dog(s) history of recent travel: No sexually active: Yes Smoking Status: Never smoker second hand exposure: No alcohol intake: never substance use type: does not use well-balanced diet: about half the time caffeine: Yes Type: coffee Number of servings: 1 eating out: 1-3 times/week during the past year weight has: remained stable what type of physical activity do you participate in: walking frequency: daily duration: > 90 minutes/day seatbelt use: always do you feel safe at home: Yes additional social history: - [place] Teacher/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, [email or web address] HPI repeat us *rm 2* Details: AMY REDDY is a 37 year old who presents for early followup. she denies any bleeding cramping or fevers. she denies any bowel complaints of bladder issues. US thursday showed a 21 mm sac with subchorionic hematoma and today shows a 22-27mm sac no yolk sac or pole seen confirmed anembryonic . Female Reproductive History Last Menstrual Period: 10/07/22 Menopausal Symptoms: No night sweats History 2 Elective abortions Hx Para 1 Spontaneous abortions Hx # Term Pregnancies Ectopic pregnancies Hx # Pregnancies Multiple births # of living children 1 Past Pregnancies Del. Date Name GA/Weeks Outcome Route Bth Weight Infant Gen Labor Lgth Anesthesia Del Locatn Provider FOB 08/26/20 [place] 40 live - full term 8#1oz Male [facility] Aaron Thurston Delivery Date: 08/26/20 Last Updated by: Marii Doherty distress ROS Const Constitutional: Denies fatigue, night sweats, weight gain or weight loss ENT ENT: Reports system reviewed and no additional complaints, except as documented Cardio Card: Denies chest pain Resp Resp: Denies cough or dyspnea GI GI: Reports as per HPI; Denies abdominal pain, constipation, nausea or vomiting : Denies nipple discharge, urinary frequency, urinary incontinence, urinary hesitancy, urinary urgency, vaginal discharge, vaginal dryness, vaginal odor or vaginal pruritus Musc Musc: Denies arthralgias, back pain or muscle weakness Skin Skin/Breast: Denies alopecia, change in hair, dry skin, breast mass, breast pain, breast skin changes or nipple discharge Neuro Neuro: Reports system reviewed and no additional complaints, except as documented Psych Psych: Reports system reviewed and no additional complaints, except as documented Endo Endo: Denies cold intolerance, excessive sweating, heat intolerance or polydipsia Tomy/Lymph Hematologic/Lymphatic: Denies easy bleeding, Denies easy bruising and Denies lymphadenopathy Exam Const General: cooperative, healthy appearing, comfortable, no acute distress and well developed Orientation: alert [facility] Head: normal to inspection and normocephalic Ears: hearing grossly normal bilaterally and external ears normal Nose: external nose normal and nares normal Face and sinus: normal facial exam Neck Neck: normal visual inspection and no lymphadenopathy Thyroid: thyroid normal Chest Chest palpation & inspection: normal inspection of the chest Resp Effort & Inspection: normal respiratory effort Auscultation: clear to auscultation bilaterally Cardio Rate: regular rate Rhythm: regular rhythm Heart Sounds: S1 normal and S2 normal GI Inspection: normal to inspection and non-distended Palpation: soft and no hepatosplenomegaly General: bladder normal to palpation External Female Exam: normal external appearance and normal appearance of the urethra Urethra: normal appearance of the urethra, normal palpation and no discharge Speculum Exam - Vagina: normal appearance of the vagina and normal vaginal discharge Speculum Exam - Cervix: normal appearance of the cervix and nontender Bimanual Exam- Vagina & Uterus: normal bimanual exam, uterine size normal, bladder normal to palpation, uterine shape normal, No tender, uterine mobility normal, consistency normal, normal palpation and non-tender Bimanual Exam- Adnexa, other: normal adnexae, adnexae mobile, no masses and normal Pelvic Support: normal Musc Other: gross motor intact no deficits, full bilateral strength Skin General: no rashes or lesions noted Neuro General: patient alert, patient awake, moves all extremities and no focal motor deficits Motor: muscle tone normal throughout Extrem General: normal to inspection and no pedal edema Psych Appearance: grossly normal Mental Status: mental status grossly normal Affect: normal affect Speech and Movement: speech and movement normal Coding Level of Care Code Off vis,est,level 4 Diagnoses Missed O02.1 Assessment and Plan Assessment and Plan (1) Missed : Status: Acute Comment: PC nova, [place]. plan suction d and c Plan After discussing the patient's diagnosis and treatment plan options, patient wishes to proceed with surgical management. I have discussed with the patient the risks, benefits, and alternatives of the procedure which include but are not limited to risks of anesthesia, bleeding, infection, possible damage to bowel, bladder, or surrounding vasculature which could lead to additional surgery to evaluate any complications. Patient agrees to procedure and wishes to proceed. ACOG/uptodate references given for additional information regarding procedure. UPDATE- I have seen the patient and performed any clinically relevant updates to the history and physical exam. Nelly Walker MD
--- NOTE | 2022-12-16 14:10 | POC_PTH ---
PATIENT: AMY REDDY LOC: [facility] [place] U#:[id number] AGE/SX: 37/F ROOM: RE12/16/[address]: Dr. Nelly Walker MD : 1985 BED: DIS: 12/16/2022 SPEC #: [id number] RECD: 12/16/22 15:16 STATUS: SHANIA MCNAMARA #: [id number] CRYS: 12/16/22 14:[address]: Nelly Walker DEPT: SURGICAL PATHOLOGY RECD BY: Sara Shaw ENTERED: 12/17/22 09:09 SP TYPE: PROD CONC OTHR DR: Dr. Dwight Rios MD Tissues: Product of conception, NOS Procedures: Surgery Specimen Level IV HEADER OPERATION: Suction dilation and curettage PRE-OP DIAGNOSIS: Missed TISSUE SUBMITTED: Products of conception MICROSCOPIC DIAGNOSIS Endometrium, curettage: Chorionic villi, decidualized stroma and trophoblastic cells (products of conception). AM:valentine 12/18/2022 MICROSCOPIC DESCRIPTION Slides are reviewed. GROSS DESCRIPTION Received in fixative is one container labeled with the patient's name and designated products of conception. The specimen consists of multiple fragments of hemorrhagic soft tissue that in aggregate measure 7.0 x 6.5 x 1.5 cm. No tissue is identified. Child Care tissue is submitted in three cassettes. / SJ:valentine 12/17/2022 TC:5 CPT: 23461
--- NOTE | 2022-12-16 14:10 | OP.PCM_ITS ---
Problems Associated Problem List Diagnoses (1) Missed : Report of Operation Date of Procedure: 12/16/22 Pre-Operative Diagnosis: see problem list Post-Operative Diagnosis: same Surgery/Procedure Performed:: Suction dilation and curettage Description of Surgical Findings:: no FHT present, Nonviable 6 weeks Surgeon: Nelly Walker kieselguhr regenerator operator: None Type of Anesthesia: Local MAC Special Medications: none Specimen's removed: POC Drains: none Estimated Blood Loss (mL): 50 Fluids Replaced: crystalloid Description of Procedure: Patient was taken to the operating room and placed under MAC local anesthesia. She was prepped and draped in the normal sterile fashion the dorsal lithotomy position. Bladder was drained of clear urine and anterior lip of the cervix was grasped and the uterus sounded to 9. Cervix was progressively dilated to allow passage of a 9 mm suction curette. Progressive passes were made removing the retained products of conception without complication. Sharp curettage confirmed complete removal of the retained products. All instruments were removed from the vagina and excellent hemostasis was noted and the patient was taken to recovery in stable condition. Grafts/Implants Used: none Complications none Admit VTE Documentation VTE Present on Admission: No VTE Mechan Device Prophylaxis: SCD's Procedures Urinary/Genital [id number]: [id number] Surg Trtmt missed Ab, 1TM
--- NOTE | 2022-12-16 14:11 | DCINST_ITS ---
Discharge Instructions Diet Discharge Diet: No restrictions Activity Discharge Activity: Return to Normal Activity, May Shower and May Take a Tub Bath (after 1 week) May resume sexual activity in: 1-2 weeks Weight Bearing Status: Weight bearing as tolerated Lifting Restrictions: none Dressing / Incision Call your doctor if you observe: Fever of 101 or Higher, Using more than 1 pad per hour, Shortness of breath and Uncontrolled pain Follow Up Care Please Follow Up With: Nelly Walker MD When: Call [phone] to schedule appointment. Test Results: Test results from this visit will be discussed in further detail at your follow- up appointment, if applicable. Discharge Plan Admission Attending Provider: Nelly Walker Primary Care Provider: Dwight Rios Discharge Orders/Prescriptions Prescriptions: No Action PNV no.[id number] 400 mcg-35 mg- 25 mg-5 mg tablet,chewable 1 tab PO DAILY Referrals / Follow Up: Dwight Rios MD [Primary Care Provider] - Disposition Disposition (needs filled in before D/C Order can be placed): Home, Self Care
== END 2022-12-16 16:05 | disposition home or self-care (01) ==
LOC: SDC 12:17 → AC 12:17
PROVIDERS: PCP Internal Medicine; Referring Provider Obstetrics & Gynecology; Visit Provider Obstetrics & Gynecology
PROC: (CPT 59820; principal; 2022-12-16 13:55)
DX: O02.1 Missed abortion (principal); Z86.16 Personal history of COVID-19
CPT/HCPCS: 59820; 01965; 88305; J7120; J2405

== ENCOUNTER → 2022-12-19 | Outpatient (CLI) | payer OTHER, SELFPAY | END | disposition home or self-care (01) | PROVIDERS: PCP Internal Medicine; Visit Provider Physician Assistant Surgical | DX: J02.9 Acute pharyngitis, unspecified (principal) | CPT/HCPCS: 87070 ==

== ENCOUNTER → 2023-01-19 | Outpatient (CLI) | payer OTHER, SELFPAY ==
[2023-01-19 11:53] LABS: NATERA MAILED SPECIMEN
[2023-01-19 12:06] LABS: Prolactin 5.7 ng/mL; Thyroid Stim Hormone (TSH) 1.75 uIU/mL (0.358-3.74)
[2023-01-22 10:09] LABS: Testosterone, % Free 1.64 % (0.50-2.80); Testosterone, Free 0.25 ng/dL (0.10-0.85); Testosterone, Total 15 ng/dL (8-60)
== END | disposition home or self-care (01) ==
LOC: MTLAB 10:40
PROVIDERS: PCP Internal Medicine; Referring Provider Obstetrics & Gynecology; Visit Provider Obstetrics & Gynecology
DX: N94.6 Dysmenorrhea, unspecified (principal); N97.9 Female infertility, unspecified
CPT/HCPCS: 36415; 82627; 84146; 84402; 84403; 84443; 82626

== ENCOUNTER → 2023-11-30 | Outpatient (CLI) | payer OTHER, SELFPAY ==
[2023-11-30 08:52] LABS: hCG Titer Quant., Serum 664 mIU/mL (1-3)
== END | disposition home or self-care (01) ==
LOC: LAB 07:34
PROVIDERS: PCP Internal Medicine; Referring Provider Obstetrics & Gynecology Reproductive Endocrinology; Visit Provider Obstetrics & Gynecology Reproductive Endocrinology
DX: Z32.00 Encounter for pregnancy test, result unknown (principal)
CPT/HCPCS: 36415; 84702

== ENCOUNTER → 2023-12-02 | Outpatient (CLI) | payer OTHER, SELFPAY ==
[2023-12-02 08:40] LABS: hCG Titer Quant., Serum 1529 mIU/mL (1-3)
== END | disposition home or self-care (01) ==
LOC: LAB 07:35
PROVIDERS: PCP Internal Medicine; Referring Provider Obstetrics & Gynecology Reproductive Endocrinology; Visit Provider Obstetrics & Gynecology Reproductive Endocrinology
DX: Z32.01 Encounter for pregnancy test, result positive (principal)
CPT/HCPCS: 36415; 84702

== ENCOUNTER → 2024-01-07 | Outpatient (CLI) | payer OTHER, SELFPAY ==
[2024-01-11 21:07] LABS: Chlamydia By Nucleic Acid AMP Negative (Negative); Gonococcus By Nucleic Acid AMP Negative (Negative)
== END | disposition home or self-care (01) ==
PROVIDERS: PCP Internal Medicine; Referring Provider Advanced Practice Midwife; Visit Provider Advanced Practice Midwife
DX: O09.90 Supervision of high risk pregnancy, unspecified, unspecified trimester (principal); Z3A.00 Weeks of gestation of pregnancy not specified
CPT/HCPCS: 87086; 87088; 87491; 87591

== ENCOUNTER 2024-01-17 16:53 | Emergency (ER) | payer OTHER, SELFPAY ==
[2024-01-17 16:54] VITALS: BP 122/75; PULSE 90; RESP 16; TEMP 36.7; O2SAT 100; BMI 24.9
[2024-01-17 16:56] VITALS: BP 122/75; PULSE 90; RESP 16; TEMP 36.7; O2SAT 100
--- NOTE | 2024-01-17 17:16 | EX.ED.DYSGE1 ---
HPI History of Present Illness Chief Complaint: Fever Informant: patient and spouse/S.O. Narrative Narrative: 11-week twin gestation referred in by her OB for evaluation. She has had worsening morning sickness for last 4 days. It has been having continued on and off diarrhea. No recent antibiotics. Today had a fever of 101. Improving cough since Labor Day per patient. Today had worsening vertigo symptoms with spinning worse with movement. She has had vertigo years ago. Son sick with a fever recently. Spouse is not sick. Urine is darker no dysuria. No vaginal bleeding or clotting. No abdominal cramping. She does report myalgias. She did take a Zofran around 3 PM and has tolerated some oral fluids since then. [facility] Medical History Missed Dysmenorrhea Post depression Acute pharyngitis, unspecified Wears contact lenses Alcohol use Low iron Injury of head and neck Syncope History of IBS Non-smoker Abnormal Pap smear of cervix Urinary frequency Encounter for IUD removal COVID-19 delivery delivered Family history of hearing loss at age younger than 7 years Anxiety Frequent UTI GERD (gastroesophageal reflux disease) Home Medications ?Medication ?Instructions ?Recorded ?Last Taken ?Type docosahexaenoic acid 200 mg 200 mg PO DAILY 12/13/23 Unknown History capsule ( DHA) hydroxyzine pamoate 25 mg capsule 25 mg PO QHS PRN nausea and 01/07/24 Unknown Rx (Vistaril) vomiting #30 caps ondansetron 4 mg disintegrating 4 mg PO Q6H PRN nausea and 01/07/24 Unknown Rx tablet vomiting #30 tabs metoclopramide HCl 5 mg tablet 5 mg PO Q6H PRN nausea, vomiting 01/17/24 Unknown Rx (Reglan) or dizziness #20 tabs Allergy/AdvReac Type Severity Reaction Status Date / Time Penicillins Allergy Rash Verified 01/17/24 16:54 Sulfa (Sulfonamide Allergy Rash Verified 01/17/24 16:54 Antibiotics) Family History Unknown Ovarian cancer Grandfather Alcohol abuse Mother Anemia Anxiety Grandmother Pancreatic cancer Grandmother Diabetes Heart disease Father Hypertension Surgical History Previous section History of dilatation and curettage [place] teeth extracted Social History adopted: No household members: spouse and children number of children: 1 current occupational status: employed 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 animals: Yes pets and animals: dog(s) history of recent travel: No sexually active: Yes Smoking Status: Never smoker second hand exposure: No alcohol intake: never substance use type: does not use well-balanced diet: about half the time caffeine: No eating out: 1-3 times/week during the past year weight has: remained stable what type of physical activity do you participate in: none alex/spiritism: Taoist seatbelt use: always do you feel safe at home: Yes additional social history: - [employer] Teacher/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, [employer] ROS ROS ED Constitutional Constitutional ED: Reports fever(s); Denies chills or sweats Eyes Eyes: Denies change in vision ENT ENT ED: Denies dysphagia or sore throat Cardiovascular Cardiovascular: Denies chest pain, leg edema, palpitations or racing heartbeat Respiratory/Chest Respiratory/Chest: Denies cough, dyspnea or dyspnea on exertion Gastrointestinal Gastrointestinal: Reports diarrhea and vomiting; Denies abdominal pain or nausea Genitourinary Genitourinary ED: Denies dysuria, hematuria or urinary frequency Musculoskeletal Musculoskeletal: Reports myalgias; Denies back pain, extremity pain or neck pain Integumentary Denies rash or wounds Neurologic Neurologic: Reports other Details: Dizziness ; Denies headache(s), paresthesias or weakness EXAM Physical Exam Const Vital Signs: 01/17/24 16:54 01/17/24 16:56 01/17/24 17:10 Temperature 98.1 F 98.1 F Temperature Source Oral Oral Pulse Rate 90 90 Respiratory Rate 16 16 Respiratory Effort Normal Respiratory Pattern Normal Blood Pressure 122/75 H 122/75 H Blood Pressure Mean 90 90 Pulse Ox 100 100 Oxygen Delivery Method Room Air Room Air 01/17/24 17:56 01/17/24 19:00 Temperature 98.4 F 98.4 F Temperature Source Oral Oral Pulse Rate 80 67 Respiratory Rate 16 12 Respiratory Effort Respiratory Pattern Blood Pressure 120/67 118/81 H Blood Pressure Mean 84 93 Pulse Ox 100 100 Oxygen Delivery Method Room Air Room Air Positive well nourished and well developed General Appearance ED: well developed and NAD HEENT HEENT Narrative: Mild dry mucosal membranes normocephalic and atraumatic Eyes EOMs intact bilaterally and conjunctivae normal Eyes Narrative: No nystagmus General Eye ED: Yes normal appearance of both eyes Neck no lymphadenopathy and supple General: Negative for tenderness Chest Wall Chest: Negative for tenderness Resp normal respiratory effort and normal air movement Effort and Inspection: symmetric chest movement; Negative for respiratory distress Cardio regular rate, regular rhythm and no murmurs Peripheral Pulses: pulses 2+ throughout GI normal to inspection, nondistended, normoactive bowel sounds and non-tender Palpation: Negative for guarding or rebound tenderness present Back/Spine no CVA tenderness and no thoracic nor lumbar tenderness Extremity normal to inspection General Extremety ED: Negative for edema or tenderness General Extremity: Negative for edema Neuro oriented x3, CN's II-XII intact bilaterally and no sensory deficits noted Neuro Narrative: No focal deficits Sensorium / Orientation: awake and alert Skin no rashes or lesions noted and no wounds MDM MDM MDM Narrative Medical decision making narrative: Interventions / MDM: Differential diagnosis: Viral syndrome, vomiting diarrhea, first trimester twin , dehydration Diagnosis considered but do not suspect: N/A My EKG interpretation: N/A Imaging independently reviewed and interpreted by myself: N/A External documents reviewed: N/A Test considered but not ordered:N/A ED course: Fever today worsening vomiting diarrhea no recent antibiotics. 11-week twin . Slight dry mucosal combined with dark urine per patient. Will establish IV for fluids with vertigo symptoms there is no focal deficits no nystagmus. Will treat with IV Reglan. Will check labs and urine. Will check for COVID, influenza, RSV. Bedside ultrasound performed. Baby A inferiorly heart rate 159 with strong movements. Baby B superiorly heart rate 163 with strong movements also. Both intrauterine. 1800: Clinically improving. White count 15 creatinine 0.49. Urine 3+ bacteria. Urine culture sent. Patient reports has been like that in the office with negative cultures. Awaiting nasal swab results. COVID, influenza, RSV negative. Clinically was feeling better is tolerating oral fluids on reevaluation. Ambulating department with no return of vertigo symptoms. Prescription of Reglan prescribed to use as needed. She will follow-up with her OB team. Discussed viral syndrome. All questions were answered. Re-evaluation: stable Disposition discussed with patient/family/significant other: Patient and significant other Case discussed with consulting clinician: N/A This note was generated with [employer] dictation software. It may contain incorrect words, spelling, and punctuation that were not noted in checking the note before signing. Lab Data Attestation: I reviewed the patient's lab results. Labs: Laboratory Results - last 24 hr 01/17/24 01/17/24 17:20 17:22 WBC 15.0 H RBC 4.58 Hgb 13.7 Hct 40.7 MCV 88.9 MCH 29.9 MCHC 33.7 RDW Std Deviation 38.5 RDW Coeff of Mana 12.0 Plt Count 320 MPV 10.8 Immature Gran % (Auto) 0.500 Neut % (Auto) 72.6 H Lymph % (Auto) 19.2 Ceiba % (Auto) 6.1 Eos % (Auto) 1.2 Baso % (Auto) 0.4 Absolute Neuts (auto) 10.9 H Absolute Lymphs (auto) 2.87 Nucleated RBC % 0 Sodium 135 L Potassium 3.5 Chloride 107 Carbon Dioxide 22.0 Anion Gap 6 BUN 8 Creatinine 0.49 L Estim Creat Clear Calc 145.31 Est GFR (MDRD) Af Amer 180 Est GFR (MDRD) Non-Af 149 BUN/Creatinine Ratio 16.3 Glucose 93 Calcium 9.5 Urine Color Yellow Urine Clarity Sl. Cloudy Urine pH 6.0 Ur Specific [place] 1.020 Urine Protein Negative Urine Glucose (UA) Normal Urine Ketones Negative Urine Occult Blood Negative Urine Nitrite Negative Urine Bilirubin Negative Urine Urobilinogen Normal Ur Leukocyte Esterase Negative Urine RBC 0-5 SEEN Urine WBC 0-5 SEEN Ur Squamous Epith Cells 5-10 SEEN Urine Bacteria 3+ Urine Mucus 0 SEEN Discharge Plan Triage Chief Complaint: Fever ED Provider: Abdiel Yañez Dx/Rx/DC Orders Clinical Impression: Vertigo, Acute viral syndrome, First trimester screening for twin Instructions: ED Vertigo, Unspecified, ED Viral Syndrome (Adult), ED Established ... Prescriptions: New metoclopramide HCl [Reglan] 5 mg tablet 5 mg PO Q6H PRN (Reason: nausea, vomiting or dizziness) Qty: 20 0RF No Action hydroxyzine pamoate [Vistaril] 25 mg capsule 25 mg PO QHS PRN (Reason: nausea and vomiting) Qty: 30 4RF ondansetron 4 mg tablet,disintegrating 4 mg PO Q6H PRN (Reason: nausea and vomiting) Qty: 30 4RF DHA 200 mg capsule 200 mg PO DAILY Primary Care Provider: Dwight Rios Referrals: Dwight Rios MD [Primary Care Provider] - 1 Week Nelly Walker MD [Med Staff - Active Staff] - 1 Week Activity Restrictions/Additional Instructions: Baby A heart tones 159, baby B heart tones 163. Urine with bacteria. Urine culture sent. COVID, influenza, RSV negative. Continue oral fluids for hydration. Follow-up with your doctors. Symptoms worsen not controlled medications, return to ED for reevaluation. Use Reglan as needed. Print Language: Japanese Disposition Disposition: Home, Self Care Discharge Date/Time: 01/17/24 19:43
[2024-01-17] MEDS: 0.9% Normal Saline (1000mL) 1,000 ML 1000 ML IV (17:26)
[2024-01-17] MEDS: Metoclopramide 10 MG/2 ML Vial 5 MG IV (17:26)
[2024-01-17 17:29] LABS: Absolute Lymphocyte Count 2.87 X10^3/uL (0.83-4.51); Absolute Neutrophil Count 10.9 X10^3/uL (2.0-7.7); Basophil# 0.06 X10^3/uL; Basophil% 0.4 % (0-1); Eosinophil# 0.18 X10^3/uL; Eosinophils% 1.2 % (0-5); Hematocrit 40.7 % (37-47); Hemoglobin 13.7 g/dL (12.0-15.0); Lymphocyte # 2.87 X10^3/ul (0.83-4.51); Lymphocyte % 19.2 % (19-41); Mean Corp Hgb Conc 33.7 g/dL (32-36); Mean Corpuscular Hgb 29.9 pg (27.0-32.0); Mean Corpuscular Volume 88.9 fL (81-99); Mean Platelet Vol. 10.8 fl (6.2-12.0); Monocyte# 0.91 X10^3/uL; Monocyte% 6.1 % (0-10); NRBC Flagged by Analyzer 0 % (0-5); Neutrophil # 10.88 X10^3/uL (2.7-7.7); Neutrophil % 72.6 % (47-70); Platelet Count 320 K/mm3 (150-450); RBC Distribution Width SD 38.5 fl (35.1-43.9); Red Blood Count 4.58 M/mm3 (4.2-5.4)
[2024-01-17 17:34] LABS: Mucous, Urine 0 SEEN /hpf (<or=2+)
[2024-01-17 17:35] LABS: Color, Urine Yellow (Yellow); Glucose, Dipstick Normal (Normal); Ketone-Dipstick Negative (Negative); Leukocyte Esterase-Dipstick Negative /ul (Negative); Nitrite-Dipstick Negative (Negative); Occult Blood-Urine Negative /ul (Negative); Protein-Dipstick Negative (Negative); Urine Bilirubin Dipstick Negative (Negative); Urine Clarity Sl. Cloudy (Clear); Urine Urobilinogen Normal (Normal)
[2024-01-17 17:42] LABS: Anion Gap 6 (5-15); BUN 8 mg/dL (7-18); BUN/Creat Ratio 16.3 RATIO (10-20); Calcium,Total 9.5 mg/dL (8.5-10.1); Chloride 107 mmol/L (98-107); Creatinine, Serum 0.49 mg/dL (0.55-1.02); EST Glomerular Filtration Rate 149 mL/min (>60); Est Glom Filt Rate - Afr Amer 180 mL/min (>60); Estimated Creatinine Clearance 145.31 ml/min; Glucose 93 mg/dL (74-106); Potassium 3.5 mmol/L (3.5-5.1); Sodium Level 135 mmol/L (136-145)
[2024-01-17 17:49] LABS: Red Blood Cells-Urine 0-5 SEEN /hpf (0-5); Squamous Epithelial Cells - UA 5-10 SEEN /hpf (5-10); White Blood Cells 0-5 SEEN /hpf (0-5)
[2024-01-17 17:50] LABS: Bacteria 3+ /hpf (None Seen)
[2024-01-17 17:56] VITALS: BP 120/67; PULSE 80; RESP 16; TEMP 36.9; O2SAT 100
[2024-01-17 19:00] VITALS: BP 118/81; PULSE 67; RESP 12; TEMP 36.9; O2SAT 100
== END 2024-01-17 19:43 | disposition home or self-care (01) ==
PROVIDERS: Emergency Provider Emergency Medicine; PCP Internal Medicine; Visit Provider Emergency Medicine
DX: O98.511 Other viral diseases complicating pregnancy, first trimester (principal); B34.9 Viral infection, unspecified; O99.891 Other specified diseases and conditions complicating pregnancy; R82.71 Bacteriuria; R42 Dizziness and giddiness; R19.7 Diarrhea, unspecified; O21.9 Vomiting of pregnancy, unspecified; O30.001 Twin pregnancy, unspecified number of placenta and unspecified number of amniotic sacs, first trimester; O09.521 Supervision of elderly multigravida, first trimester; Z3A.11 11 weeks gestation of pregnancy; Z88.0 Allergy status to penicillin; Z88.2 Allergy status to sulfonamides; Z86.16 Personal history of COVID-19; Z87.440 Personal history of urinary (tract) infections
CPT/HCPCS: 80048; 81001; 85025; 87086; 87088; 87631; 96361; 96374; 99285; J7030; A4216

== ENCOUNTER → 2024-01-28 | Outpatient (CLI) | payer OTHER, SELFPAY ==
[2024-01-28 15:00] LABS: Absolute Lymphocyte Count 2.04 X10^3/uL (0.83-4.51); Absolute Neutrophil Count 7.9 X10^3/uL (2.0-7.7); Basophil# 0.03 X10^3/uL; Basophil% 0.3 % (0-1); Eosinophil# 0.06 X10^3/uL; Eosinophils% 0.6 % (0-5); Hematocrit 37.8 % (37-47); Hemoglobin 12.8 g/dL (12.0-15.0); Lymphocyte # 2.04 X10^3/ul (0.83-4.51); Lymphocyte % 19.1 % (19-41); Mean Corp Hgb Conc 33.9 g/dL (32-36); Mean Corpuscular Hgb 29.4 pg (27.0-32.0); Mean Corpuscular Volume 86.9 fL (81-99); Mean Platelet Vol. 11.1 fl (6.2-12.0); Monocyte# 0.58 X10^3/uL; Monocyte% 5.4 % (0-10); NRBC Flagged by Analyzer 0 % (0-5); Neutrophil % 74.1 % (47-70); Platelet Count 293 K/mm3 (150-450); RBC Distribution Width CV 11.8 % (11.6-14.6); RBC Distribution Width SD 37.7 fl (35.1-43.9); Red Blood Count 4.35 M/mm3 (4.2-5.4); White Blood Count 10.7 K/mm3 (4.4-11.0)
[2024-01-28 16:11] LABS: HIV - WCH Non-Reactive (Nonreactive); Hepatitis B Surface Antigen Non-Reactive (Nonreactive); Hepatitis C Antibody Non-Reactive (Nonreactive); Rubella IgG Reactive (Nonreactive)
--- OUTSIDE RECORDS SUMMARY | 2024-01-28 16:51 | XMS RPT_ITS | CCD ---
Author Organization [facility] Care Team Providers Care Tree Puller Name Role Phone Jewell JONES, Fanta Ponce Unavailable [phone] VILMA Azar RN, Zara Mendieta Unavailable Unavailabl e Fanta Corcoran NP Unavailable IDANIA SALAZAR Referring Unavailable HARMAN CHAMBERS Attending Unavailable CINDY MARTIN Primary Care Unavailable TAD PATTON Attending Unavailable CINDY MARTIN Primary Care Unavailable RAY NGUYEN Referring Unava ilable Allergies Allergy Classification Reported Allergen(s) Allergy Type Date of Onset Reaction(s) Facility (3 sources) Penicillin V Drug Allergy 12-24-[address] [facility] (3 sources) Sulfamethoxazole / Trimethoprim Drug Allergy 12-24-[address] [facility] (2 sources) Penicillins; Translations: [PENICILLINS] Propensity to adverse reactions to drug (disorder) 02-24-[address] [facility] (1 source) Sulfonamides (Antibiotic); Translations: [SULFA (SULFONAMIDE ANTIBIOTICS)] Propensity to adverse reactions to drug (disorder) 02-24-[address] [facility] (1 source) Sulfonamides (Antibiotic); Translations: [SULFA ANTIBIOTICS] Propensity to adverse reactions to drug (disorder) 01-12-20 24 [facility] Repository Medications Completed/Discontinued Medications Medication Drug Class(es) Dates Sig (Normalized) Sig (Original) LEVONORGESTREL-ET HINYL ESTRAD (2 sources) Progestin, Estrogen, Progestin-containin g Intrauterine Device Start: 01-05-2017 take 1 tablet by mouth once daily AVIANE 0.1-20 MG-MCG TABS One tablet by mouth daily LEVONORGESTREL-ETH INYL ESTRAD [id number] Fanta Corcoran RESTAURANT SUPERVISOR Results Test Name Value Interpretation Reference Range Facility Progress Noteon 01-12-2024 Machine Setter Supervisor Authentication Interface Message Text [facility] Antepartum Consult Note Dear Dr. Ray Thompson, I had the pleasure of seeing your patient, Ms. Reddy, in consultation in regards to her Monochorionic . As you know, she is a 38 y.o. at 10w3d by LMP and Ultrasound confirmation. Today she states she is doing well without complaint. She States she has had some brown spotting since 5 weeks, mostly after TVS. Has improved. Obstetrical History 2020 FT PLTCS for distress. No IVF 2. 2022 MAB with D&C. 3. Current MC/DA via IVF, PGT-A. ICSI. Spotting. Past Medical History: Diagnosis Date Anxiety Infertility, female Male factor Past Surgical History: Procedure Laterality Date SECTION 08/25/2022 DILATION AND CURETTAGE OF UTERUS 12/16/2022 OVARIAN CYST DRAINAGE 09/15/2023 Allergies Allergen Reactions Penicillins Hives Sulfa Antibiotics Hives Current Outpatient Medications Medication Sig Dispense Refill ondansetron (ZOFRAN-ODT) 4 MG disintegrating tablet dissolve 1 tablet ON TONGUE every 6 hours if needed for nausea OR vomiting diphenhydrAMINE (BENADRYL) 25 MG capsule Take by mouth every 6 hours as needed for Itching MV-Min-Fe Fum-FA-DHA ( 1 PO) Take by mouth No current facility-administered medications for this visit. Social History Socioeconomic History Marital status: Spouse name: Not on file Number of children: Not on file Years of education: Not on file Highest education level: Not on file Occupational History Not on file Tobacco Use Smoking status: Never Smokeless tobacco: Never Substance and Sexual Activity Alcohol use: Not Currently Drug use: Never Sexual activity: Not on file Other Topics Concern Not on file Social History Narrative Not on file History reviewed. No pertinent family history. Review of Systems - negative unless otherwise specified above Vitals: 01/12/24 0914 BP: 130/77 Pulse: 85 Resp: 18 SpO2: 99% Weight: 63.8 kg (140 lb 11.2 oz) BMI Readings from Last 1 Encounters: 01/12/24 24.92 kg/m Physical Examination: General appearance - alert, well appearing, and in no distress Mental status - alert, oriented to person, place, and time Chest - No difficulty with breathing Heart - Normal Rate Abdomen - Non tender during US exam Pelvic - Deferred Extremities - no edema noted Ultrasound performed today in the office showed: 1. Monochorionic-diamniotic twin with cardiac activity present, x2, at 10w 3d with an LOBITO of 08/06/2024. 2. [place] rump length measurement are consistent with supplied dating. 3. Anatomic detail is extremely limited at this early gestational age. No gross abnormalities were noted on this examination. 4. Normal uterus and adnexa. 5. Absence of free fluid in the pelvis. My Impression and recommendations include the following: Juliana Reddy is a 38 y.o. year old at 10w3d 1) Twin gestation. Today we discussed the many complications that can occur throughout a Monochorionic . The current understanding and presumed pathogenesis via vessel anastomosis and unequal sharing of the placenta of the below conditions were explained in detail. Essentially all MC/DA pregnancies will have placental anastomosis. Brief synopsis of potential complications with the below interventions were discussed. We later discussed the maternal risks as well. All questions answered. -Twin to Twin Transfusion Syndrome (TTTS) will occur in approximately 10-15% of MC/DA pregnancies. 15% of these will progress past stage 1. -Twin Anemia Polycythemia Syndrome (TAPS) will occur in approximately 2-5% of MC/DA pregnancies. -There is an increase in growth restriction, malformations including cardiac, Pre-Eclampsia (12%) and Gestational Diabetes. -There is an approximately 90% rate of , less than 37 weeks gestation in MC/DA twins. -Risk of loss of at least one twin is 7% under 24 weeks gestation. Once beyond 24 weeks there is a 2.5% rate of loss of at least one twin. - Demise (IUFD) and effect on surviving twin: 15% rate of demise of surviving twin with 20-25% of neurologic damage in surviving twin if does survive the demise of its co-twin. Surveillance: -TTTS Screening & TAPS screening - Starting at 16 weeks every 2 weeks -Growth Scan every 4 weeks -Weekly BPP starting at 32 weeks - Echo at 22 weeks Delivery: 37 Weeks. Repeat . Could consider TOLAC but likely low success rate given the likelihood of delivery. [facility] TTTS Guideline 2013, [facility] Twin Checklist 2020, [place] 2016, ACOG PB 231, N Engl J Med. 2013;369(14):1295, JUMODA 2017 2) IVF Recommendations: PGT- A normal embyo that split. We then discussed the increased risk of growth restriction, , low weights, and increased IUFD rate OR 2.6.AGOG CO 828 3) Advanced Maternal Age: Patient (more content not included)... Normal [facility] CHEST PA/AP AND LATERALon CHEST PA/AP AND LATERAL CHEST PA/AP & LATERAL Ordering Physician: Izabela Teixeira MD 07/31/2018 11:42 AM PA AND LATERAL CHEST: Comparison: None Clinical Statement: Wheezing FINDINGS: Chest examination reveals no abnormality of the lungs, heart, mediastinum or bony thorax. No acute upper abdominal findings. IMPRESSION: Radiographically normal chest. ---- Electronic Signature on File ---- Signed By: Narcisa Forrester MD [email or web address] Dictated: 07/31/2018 8:53 PM Signed: 07/31/2018 8:54 PM Reported By: NARCISA FORRESTER M.D. Signed By: NARCISA FORRESTER M.D. [facility] 07-31-2018 [facility] REPORT [facility] DATE OF SERVICE: REASON OF VISIT: Feels like obstruction in the throat. HISTORY OF PRESENT ILLNESS: This is a 33-year-old female who has a preexisting acid reflux problem. She is having a feeling that her throat is obstructed for the last 4 weeks. Sometimes, it feels like she is choking on food and sometimes she cannot swallow well. Denied any shortness of breath, although sometimes she feels some discomfort and pressure in the chest. Patient recently saw her ENT specialist and was told that it is due to her acid reflux and modified her acid reflux medication. She was taking Nexium and now he added Zantac for her as well, but her symptoms are not getting better so she is concerned and comes into [facility]. Review of other systems normal. PAST MEDICAL HISTORY/FAMILY HISTORY/SOCIAL HISTORY: Reviewed. ALLERGIES: PENICILLIN, SULFA. MEDICATIONS: 1. Flonase. 2. Claritin. 3. Zantac. PHYSICAL EXAMINATION: She is awake, alert, not in distress. No dyspnea. She is not in any distress and does not appear to have any difficulty in breathing. Temperature 98.6. Blood pressure 125/82. Pulse 68. Respirations 18. Pulse oximetry 98% on room air. Pain score 0/10. HEENT is unremarkable. Throat is not injected. There is no cervical lymphadenopathy. I do not feel any lump in the throat or the neck. Chest: Clear to auscultation. She has good air movement into both lungs. No crackle, wheezing, or rhonchi. Heart: Regular rate and rhythm. Abdomen is benign. Liver and spleen are palpable. Overall, her exam is quite normal on my examination but I did a chest x-ray to rule out the possibility of any lung pathology from the choking she has been having; but the chest x-ray appears to be normal. Radiologist will give us a final report. ASSESSMENT: Gastroesophageal reflux disease. PLAN: Clinical findings were discussed with the patient in detail. I explained to the patient that my exam was quite normal. There is no specific treatment needed from [facility]care right now. I want her to continue the medication recommended to her by her doctor and she should watch the food items she eats. But if at any time she gets worse, she must go to the ER. I think she may need endoscopy so she should follow up with her doctor and discuss with the doctor regarding the need of endoscopy referral. She should try [id number] antacid like Maalox or Tums as well. Continue her acid reflux medication. Patient understood and agreed. All questions were answered to her satisfaction. She will follow up with ENT. [facility] PATIENT NAME: JULIANA BURNS [address] MEDICAL REC #: [id number] [place] [address] [facility] REPORT [facility] PHYSICIAN Izabela Teixeira MD [id number] SSI File#: [id number] Verified/Reviewed by 08/15/18 1414 PAWNC [facility] PATIENT NAME: JULIANA BURNS [address] MEDICAL REC #: [id number] [place] [address] [facility] REPORT [facility] PHYSICIAN Normal [facility] CLAUDIAOVmiguel 03-24-2018 [facility] Office Visit (UCWSTR) JULIANA BURNS ([id number]) 1985 FDate Time Provider Jdxhwyhyvs08/19/18 4:30 PM FLORECITA ARROYO) [facility] During your visit today, we recorded the following information about you: Temperature Pulse Respiration Blood pressure 98.6 degrees 71/minute 18/minute 128/80 Weight 71 kgFlorecita Arroyo APRN.CNP 03/24/2018 4:59 PM SignedSubjectiveThe history is provided by the patient. No tree deadener was used.[facility] Juliana Burns is a 32 year old female who presents today for CC of sorethroat. This started 3-4 weeks ago, she is also having a dry hacky cough. Shewas seen by her primary care physician for cough and sore throat, was placed onprilosec, but throat continues to worsen. She has also during this time had 3episodes of sporadic vomiting. She denies fever, productive cough, chestcongestion, nasal congestion. She also has right ear pressure which has beenchronic that she is seeing ENT for. 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 Pap smear (cervix)I have confirmed and edited as necessary, the PMHReview of SystemsConstitutional: Negative for chills and fever.HENT: Positive for sore throat. Negative for congestion, ear pain and sinuspain.Respiratory: Positive for cough.Musculoskeletal: Negative for myalgias.Neurological: Negative for headaches.ObjectivePhysical ExamConstitutional: She is well-developed, well-nourished, and in no distress.HENT:Head: Normocephalic and atraumatic.Right Ear: External ear and ear canal normal. Right ear drainage: serous.Tympanic membrane is bulging. A middle ear effusion is present.Left Ear: Ear canal normal. Tympanic membrane is not bulging. No middle eareffusion.Nose: No mucosal edema or rhinorrhea. Right sinus exhibits no maxillary sinustenderness and no frontal sinus tenderness. Left sinus exhibits no maxillarysinus tenderness and no frontal sinus tenderness.Mouth/Throat: Uvula is midline and mucous membranes are normal. Posteriororopharyngeal erythema (mild) present. No oropharyngeal exudate, posteriororopharyngeal edema or tonsillar abscesses.Cardiovascular: Normal rate, regular rhythm and normal heart sounds.Pulmonary/Chest: Effort normal and breath sounds normal. No respiratorydistress. She has no decreased breath sounds. She has no wheezes. She has norhonchi. She has no rales.Abdominal: Soft. Normal appearance and bowel sounds are normal. She exhibits nodistension and no mass. There is no tenderness. There is no rebound and noguarding.Lymphadenopathy: Head (right side): No submental, no submandibular and no tonsillaradenopathy present. Head (left side): No submental, no submandibular and no tonsillaradenopathy present. She has no cervical adenopathy.Neurological: She is alert.Skin: Skin is warm and dry.Psychiatric: Affect normal.Nursing note and vitals reviewed. ASSESSMENT/PLAN:1. Sore throat - ICD9: 462, ICD10: J02.9 (primary diagnosis)- suspect from acid reflux- Rapid Strep negative in the office today- overnight throat culture pending- Discussed supportive care treatment with fluids, rest and analgesia.- The patient may also use warm salt water gargles, throat lozenges and/or OTCthroat spray as needed.- The patient should follow up in one week if symptoms persist or worsen- Call back if drooling, increased temperature, symptoms of dehydration and/orstill sick in one week2. Cough - ICD9: 786.2, ICD10: [id number] to be from acid reflux, no signs of illnessAdvise to follow up with PCP for further treatment and testing* Seek medical care immediately, call 911, go to ER if you have chest pain,difficulty breathing, shortness of breath, inability to swallow.Diagnosis and treatment plan were discussed and questions were answered to thepatient's satisfaction. Pt acknowledged understanding of concepts and follow upplan.Specific signs and symptoms that would indicate the need for higher level ofcare were discussed in detail warranting prompt ER evaluation.Florecita Arroyo APRN.Cris Arroyo APRN.CNP 03/24/2018 4:47 PM SignedASSESSMENT/PLAN:1. Sore throat - ICD9: 462, ICD10: J02.9 (primary diagnosis)- suspect from acid reflux- Rapid Strep negative in the office today- overnight throat culture pending- Discussed supportive care treatment with fluids, rest and analgesia.- The patient may also use warm salt water gargles, throat lozenges and/or OTCthroat spray as needed.- The patient should follow up in one week if symptoms persist or worsen- Call back if drooling, increased temperature, symptoms of dehydration and/orstill sick in one week2. Cough - ICD9: 786.2, ICD10: [id number] to be from acid reflux, no signs of illnessAdvise to follow up with PCP for further treatment and testing* Seek medical care immediately, call 911, go to ER if you have chest pain,difficulty breathing, shortness of breath, inability to swallow.Referring Provider: SELF [[id number]]Allergies As of Date: 03/24/2018 Noted Allergy ReactionPENICILLINS 02/23/2013 4 - HivesSULFA (SULFONAMIDE ANTIBIOTICS) 02/23/2013 4 - HivesDate Reviewed: 03/24/2018Reviewed by: Florecita ([facility]) Cruz - Fully AssessedReason for Visit: St, chest congestion, nausea and vomiting [Other] Cmt: x 3 weeks-nausea and vomiting off and onPrimary Visit Diagnosis:Sore throat [J02.9] Other Visit Diagnosis:Cough [R05]Order(s):GROUP A STREPTOCOCCUS BY PCR [SQGASPCR] Order #: [id number] RAPID STREP TEST B/O [[id number]] Order #: [id number] as of 03/24/2018 Sig: NEXIUM ORAL Take by mouth. PROBIOTIC ORAL Take by mouth. PHENAZOPYRIDINE 200 MG TABLET TO BE TAKEN DIRECTED BY MO* ZANTAC ORAL Take by mouth.Problem List As Of Date: 03/24/2018(None) Other instructions from your clinician: ASSESSMENT/PLAN: 1. Sore throat - ICD9: 462, ICD10: J02.9 (primary diagnosis) - suspect from acid reflux - Rapid Strep negative in the office today - overnight throat culture pending - Discussed supportive care treatment with fluids, rest and analgesia. - The patient may also use warm salt water gargles, throat lozenges and/or OTC throat spray as needed. - The patient should follow up in one week if symptoms persist or worsen - Call back if drooling, increased temperature, symptoms of dehydration and/or still sick in one week 2. Cough - ICD9: 786.2, ICD10: R05 Appears to be from acid reflux, no signs of illness Advise to follow up with PCP for further treatment and testing * Seek medical care immediately, call 911, go to ER if you have chest pain, difficulty breathing, shortness of breath, inability to swallow. Status:Closed by FLORECITA ARROYO CNP on 03/24/18 [facility] Group A Strep by PCRon 03-24 GAS Specimen Source Throat Swab [facility] Comment on above: Performed By: #### GASPCR ####[facility] [address] [place], [place] [phone] Group A Strep PCR Negative [facility] Comment on above: Result Comment: This test was developed and its performance characteristics determined by [facility]'s [facility] [place] ([facility]).It has not been cleared or approved by the FDA. [facility] is regulated under CLIA as qualified to perform high-complexity testing. This test is used for clinical purposes. It should not be regarded as investigational or for research. Performed By: #### G ASPCR ####[facility] [address] [place], [place] [phone] PROGRESSon 03-24-2018 Protein mass conc HNO ID: [id number]: Florecita (Annalee) Miguel Ángelervice: (none)Author Type: Nurse PractitionerType: Progress NotesFiled: 03/24/2018 4:59 PMNote Text:SubjectiveThe history is provided by the patient. No tree deadener was used.HPI Juliana Burns is a 32 year old female who presents today for CC of sorethroat. This started 3-4 weeks ago, she is also having a dry hacky cough. She was seen by her primary care physician for cough and sore throat, wasplaced on prilosec, but throat continues to worsen. She has also duringthis time had 3 episodes of sporadic vomiting. She denies fever,productive cough, chest congestion, nasal congestion. She also has rightear pressure which has been chronic that she is seeing ENT for. 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 Pap smear (cervix)I have confirmed and edited as necessary, the PMHReview of SystemsConstitutional: Negative for chills and fever.HENT: Positive for sore throat. Negative for congestion, ear pain andsinus pain.Respiratory: Positive for cough.Musculoskeletal: Negative for myalgias.Neurological: Negative for headaches.ObjectivePhysical ExamConstitutional: She is well-developed, well-nourished, and in no distress.HENT:Head: Normocephalic and atraumatic.Right Ear: External ear and ear canal normal. Right ear drainage: serous.Tympanic membrane is bulging. A middle ear effusion is present.Left Ear: Ear canal normal. Tympanic membrane is not bulging. No middleear effusion.Nose: No mucosal edema or rhinorrhea. Right sinus exhibits no maxillarysinus tenderness and no frontal sinus tenderness. Left sinus exhibits nomaxillary sinus tenderness and no frontal sinus tenderness.Mouth/Throat: Uvula is midline and mucous membranes are normal. Posteriororopharyngeal erythema (mild) present. No oropharyngeal exudate, posteriororopharyngeal edema or tonsillar abscesses.Cardiovascular: Normal rate, regular rhythm and normal heart sounds.Pulmonary/Chest: Effort normal and breath sounds normal. No respiratorydistress. She has no decreased breath sounds. She has no wheezes. She hasno rhonchi. She has no rales.Abdominal: Soft. Normal appearance and bowel sounds are normal. Sheexhibits no distension and no mass. There is no tenderness. There is norebound and no guarding.Lymphadenopathy: Head (right side): No submental, no submandibular and no tonsillaradenopathy present. Head (left side): No submental, no submandibular and no tonsillaradenopathy present. She has no cervical adenopathy.Neurological: She is alert.Skin: Skin is warm and dry.Psychiatric: Affect normal.Nursing note and vitals reviewed. ASSESSMENT/PLAN:1. Sore throat - ICD9: 462, ICD10: J02.9 (primary diagnosis)- suspect from acid reflux- Rapid Strep negative in the office today- overnight throat culture pending- Discussed supportive care treatment with fluids, rest and analgesia.- The patient may also use warm salt water gargles, throat lozengesand/or OTC throat spray as needed.- The patient should follow up in one week if symptoms persist or worsen- Call back if drooling, increased temperature, symptoms of dehydrationand/or still sick in one week2. Cough - ICD9: 786.2, ICD10: [id number] to be from acid reflux, no signs of illnessAdvise to follow up with PCP for further treatment and testing* Seek medical care immediately, call 911, go to ER if you have chestpain, difficulty breathing, shortness of breath, inability to swallow.Diagnosis and treatment plan were discussed and questions were answered tothe patient's satisfaction. Pt acknowledged understanding of concepts andfollow up plan.Specific signs and symptoms that would indicate the need for higher levelof care were discussed in detail warranting prompt ER evaluation.Florecita Arroyo APRN.SUPERVISOR ANODIZING [facility] PROGRESSon 05-25-2017 Protein mass conc HNO ID: [id number]: Allyson (Bull Wheel Worker) KaputService: (none)Author Type: Nurse PractitionerType: Progress NotesFiled: 05/25/2017 11:33 AMNote Text:SubjectiveHPI Patient is a reliable 32 year old female here today for a 4 weekhistory of nasal congestion, cough and sore throat. Patient states coughis worse in the morning and at night. States throat pain is worse in themorning and at night. Denies know fever. Has tried OTC medications withlittle relief. Nothing makes it better. Feels like it is getting worse. Noother concerns at this time.Review of SystemsConstitutional: Positive for chills and malaise/fatigue. Negative forfever.HENT: Positive for congestion, ear pain and sore throat.Respiratory: Positive for cough. Negative for sputum production, shortnessof breath and wheezing.Cardiovascular: Negative.Gastrointestinal: Negative for nausea and vomiting.Musculoskeletal: Negative for myalgias.Neurological: Positive for headaches (sinus pressure).Endo/Heme/Allergies: Negative for environmental allergies.All other systems reviewed and are negative.PAST MEDICAL HISTORYDiagnosis Date- Abnormal glandular Papanicolaou smear of cervix Abn. Pap smear (cervix)PAST SURGICAL HISTORYProcedure Laterality Date- COLPOSCOPY (VAGINOSCOPY) Colposcopy- ORAL SURGERY PROCEDURE [place]ohola TeethALLERGIES Penicillins; Sulfa (Sulfonamide Antibiotics)MEDICATIONSESOMEPRAZO LE MAGNESIUM (NEXIUM ORAL) Take by mouth.phenazopyridine (PYRIDIUM) 200 mg tablet TO BE TAKEN DIRECTED BY MOUTHONE(1) TABLET THREE TIMES DAILY X 2 DAYSLACTOBACILLUS ACIDOPHILUS (PROBIOTIC ORAL) Take by mouth.RANITIDINE HCL (ZANTAC ORAL) Take by mouth.FAMILY HISTORYProblem Relation Age of Onset- Unknown Health Hx [OTHER] Mother- Heart Maternal Grandmother CHF- Diabetes Maternal Grandmother- Cancer Maternal Grandfather- Alcohol/Drug Maternal Grandfather- Colon Cancer Paternal GrandmotherSocial HistorySubstance Use Topics- Smoking status: Never Smoker- Smokeless tobacco: Never Used- Alcohol use Yes Comment: RarelyBP 108/64 Pulse 74 Temp 37.2 ?C (98.9 ?F) (Tympanic) Resp 16 Wt74.4 kg (164 lb) LMP 05/18/2017 BMI 29.05 kg/f0NcrtjnkqdBidwxgzp ExamConstitutional: She is well-developed, well-nourished, and in no distress.Vital signs are normal.Mildly ill.HENT:Head: Normocephalic and atraumatic.Right Ear: Tympanic membrane, external ear and ear canal normal.Left Ear: Tympanic membrane, external ear and ear canal normal.Nose: Mucosal edema and rhinorrhea present. Right sinus exhibits maxillarysinus tenderness and frontal sinus tenderness. Left sinus exhibitsmaxillary sinus tenderness and frontal sinus tenderness.Mouth/Throat: Uvula is midline, oropharynx is clear and moist and mucousmembranes are normal. No oropharyngeal exudate, posterior oropharyngealedema or posterior oropharyngeal erythema.Neck: Neck supple.Cardiovascular: Normal rate, regular rhythm and normal heart sounds.Pulmonary/Chest: Effort normal and breath sounds normal. She has nowheezes. She has no rales.Lymphadenopathy: Head (right side): No submental, no submandibular and no tonsillaradenopathy present. Head (left side): No submental, no submandibular and no tonsillaradenopathy present. She has no cervical adenopathy.Submandibular fullness.Neurological: She is alert.Skin: Skin is warm and dry.Nursing note and vitals reviewed. ASSESSMENT/PLAN:1. Acute sinusitis, recurrence not specified, unspecified location - ICD9:461.9, ICD10: J01.90- Will begin treatment with as per antibiotic as written, see orders- The patient should also be given OTC cough and cold meds as needed andwarm salt water gargles, throat lozenges and/or OTC throat spray as neededfor the first 5-7 days of treatment.- Supportive care with plenty of fluids, rest, and analgesia prn.- Follow up in 3-5 days if symptoms persist or worsen.- DOXYCYCLINE HYCLATE 100 MG TABLETPrescription instructions reviewed with patient as applicable. Patientadvised if symptoms do not improve or if symptoms worsen sooner, tocontact their primary care physician. Potential red flag symptomsdiscussed with the patient. Reviewed appropriate action plan to take ifred flag symptoms occur. Patient agreeable to treatment plan.Allyson Jackson CNP [facility] Office Visit: bc consulton 0 12-23-2016 Fall risk assessment No Invalid Interpretation Code [facility] Protein mass conc Done Invalid Interpretation Code [facility] Protein mass conc T Invalid Interpretation Code [facility] Tobacco smoking status NHIS Never Invalid Interpretation Code [facility] Tobacco smoking status [facility] Never smoker Invalid Interpretation Code [facility] Office Visit: bc consulton 0 05-07-2016 General categories Cyto stain Interp (Cervical or vaginal smear or scraping) Normal Invalid Interpretation Code [facility] Vital Signs Date Time Vital Sign Value Performing Clinician Facility 12-23-2016 12:51-0400 BMI (Body Mass Index) 28.09 kg/m2 Fanta Corcoran NP [facility] [place] 12-23-2016 12:51-0400 Body Temperature 95.9 [degF] Fanta Corcoran NP [facility] 12-23-2016 12:51-0400 BP Diastolic 70 mm[Hg] Fanta Corcoran NP [facility] 12-23-2016 12:51-0400 BP Systolic 124 mm[Hg] Fanta Corcoran NP [facility] [place] 12-23-2016 12:51-0400 Height 160.02 cm Fanta Corcoran NP [facility] 12-23-2016 12:51-0400 Pulse (Heart Rate) 67 /min Fanta Corcoran [employer] [facility] [place] 12-23-2016 12:51-0400 Weight 71.94 kg Fanta Corcoran [employer] [facility] Encounters Encounter Date Encounter Type Care Provider Facility Start: 01-12-2024 End: 01-12-2024 ambulatory TAD Morales [facility] Start: 03-24-2018 End: 03-25-2018 Patient encounter procedure [facility] Start: 05-25-2017 End: 05-25-2017 Patient encounter procedure [facility] Procedures Date Procedure Procedure Detail Performing Clinician Start: 12-23-2016 Contraception care education Contraception counseling Fanta Corcoran [employer] Start: 12-23-2016 Contraception care education Contraception counseling Fanta Corcoran [employer] SUPER[employer] Plan of Treatment Date Care Activity Detail Author Start: 12-23-2016 End: 12-23-2016 Appointment Appointment [facility] Payers Date Payer Category Payer Unknown [id number] 1985 Unknown [id number] Unknown [id number] Summary Purpose Family History No Family History Records FoundNo Family History Records FoundNo Family History Records Found Advance Directives No Advanced Directives Records FoundNo Advanced Directives Records FoundNo Advanced Directives Records Found Additional Source Comments INFORMATION SOURCE (unrecogn ized section and content) DATE CREATED AUTHOR 03/28/2018 [facility] DATE CREATED AUTHOR AUTHOR'S ORGANIZ ATION 08/26/2018 [facility] DATE CREATED AUTHOR AUTHOR'S ORGANIZ ATION 01/13/2024 [facility] FOR RECORDS PERTAINING TO PATIENTS WHO ARE OR HAVE BEEN ENROLLED IN A CHEMICAL DEPENDENCY/SUBSTANCEABUSE PROGRAM, SOME INFORMATION MAY BE OMITTED. This clinical summary was aggregated from multiple sources. Caution should be exercised in using it in the provision of clinical care. This summary normalizes information from multiple sources, and as a consequence, information in this document may materially change the coding, format and clinical context of patient data. In addition, data may be omitted in some cases. CLINICAL DECISIONS SHOULD BE BASED ON THE PRIMARY CLINICAL RECORDS. [facility] [employer] [facility]. provides no warranty or guarantee of the accuracy or completeness of information in this document.
== END | disposition home or self-care (01) ==
LOC: LAB 13:59
PROVIDERS: PCP Internal Medicine; Referring Provider Obstetrics & Gynecology; Visit Provider Obstetrics & Gynecology
DX: O09.90 Supervision of high risk pregnancy, unspecified, unspecified trimester (principal); Z3A.00 Weeks of gestation of pregnancy not specified
CPT/HCPCS: 36415; 85025; 86703; 86762; 86803; 86850; 86900; 86901; 87340

== ENCOUNTER 2024-03-30 10:50 | Outpatient (CLI) | payer OTHER, SELFPAY ==
[2024-03-30 11:00] VITALS: BP 113/67; PULSE 104; PULSE 109; RESP 16; TEMP 37.3; O2SAT 97
[2024-03-30 11:05] VITALS: PULSE 112; O2SAT 97; BMI 28.8
[2024-03-30 11:10] VITALS: PULSE 110; O2SAT 97
[2024-03-30 11:12] VITALS: BP 113/67; PULSE 105
[2024-03-30 11:15] VITALS: PULSE 108; O2SAT 97
[2024-03-30 11:20] VITALS: PULSE 104; O2SAT 97
--- NOTE | 2024-03-31 08:31 | OB.TRI.PN ---
Progress Notes Date of Service: 03/30/24 Progress Note: fht a 150 b 145 seen at 21 weeks for decreased movement, both FHT confirmed, reassurance given fu as scheduled Assessment & Plan (1) Decreased movements, second trimester, fetus 1: (2) : QUALIFIERS: Weeks of gestation: 21 weeks Qualified Code(s): Z3A.21 - 21 weeks gestation of COMMENT: Genetic & Carrier testing completed with [facility]
== END 2024-03-30 11:30 | disposition home or self-care (01) ==
LOC: WPOUT 10:58 → WP 10:59
PROVIDERS: PCP Internal Medicine; Referring Provider Obstetrics & Gynecology; Visit Provider Obstetrics & Gynecology
DX: O36.8121 Decreased fetal movements, second trimester, fetus 1 (principal); O30.002 Twin pregnancy, unspecified number of placenta and unspecified number of amniotic sacs, second trimester; Z3A.21 21 weeks gestation of pregnancy
CPT/HCPCS: 59025; 59050; 99221; G0378

== ENCOUNTER → 2024-04-28 | Outpatient (CLI) | payer OTHER, SELFPAY ==
[2024-04-28 10:26] LABS: Absolute Lymphocyte Count 1.93 X10^3/uL (0.83-4.51); Absolute Neutrophil Count 10.2 X10^3/uL (2.0-7.7); Basophil# 0.06 X10^3/uL; Basophil% 0.5 % (0-1); Eosinophil# 0.08 X10^3/uL; Eosinophils% 0.6 % (0-5); Hematocrit 38.3 % (37-47); Hemoglobin 12.5 g/dL (12.0-15.0); Lymphocyte # 1.93 X10^3/ul (0.83-4.51); Lymphocyte % 14.6 % (19-41); Mean Corp Hgb Conc 32.6 g/dL (32-36); Mean Corpuscular Hgb 30.3 pg (27.0-32.0); Mean Corpuscular Volume 92.7 fL (81-99); Mean Platelet Vol. 12.1 fl (6.2-12.0); Monocyte# 0.71 X10^3/uL; Monocyte% 5.4 % (0-10); NRBC Flagged by Analyzer 0 % (0-5); Neutrophil # 10.22 X10^3/uL (2.7-7.7); Neutrophil % 77.3 % (47-70); Platelet Count 296 K/mm3 (150-450); RBC Distribution Width CV 14.1 % (11.6-14.6); RBC Distribution Width SD 47.2 fl (35.1-43.9); Red Blood Count 4.13 M/mm3 (4.2-5.4); White Blood Count 13.2 K/mm3 (4.4-11.0)
[2024-04-28 11:05] LABS: HIV - WCH Non-Reactive (Nonreactive); Syphilis Antibodies Non-reactive
[2024-04-28 11:10] LABS: Glucose Challenge Gest 1H 50g 133 mg/dL (70-140)
== END | disposition home or self-care (01) ==
LOC: BWCLAB 09:04
PROVIDERS: PCP Internal Medicine; Referring Provider Obstetrics & Gynecology; Visit Provider Obstetrics & Gynecology
DX: O09.92 Supervision of high risk pregnancy, unspecified, second trimester (principal); O99.891 Other specified diseases and conditions complicating pregnancy; R31.9 Hematuria, unspecified; Z3A.21 21 weeks gestation of pregnancy; Z13.1 Encounter for screening for diabetes mellitus
CPT/HCPCS: 36415; 82950; 85025; 86703; 86780; 87086

== ENCOUNTER 2024-05-18 13:00 | Outpatient (CLI) | payer OTHER, SELFPAY ==
[2024-05-18 13:21] VITALS: BMI 29.1
[2024-05-18 13:22] VITALS: PULSE 106; O2SAT 98
[2024-05-18 13:24] VITALS: BP 112/72; PULSE 101; RESP 18; TEMP 36.4
[2024-05-18] MEDS: Lactated Ringers 1,000 ML 999 ML IV (13:50)
[2024-05-18 14:09] LABS: Absolute Lymphocyte Count 1.74 X10^3/uL (0.83-4.51); Absolute Neutrophil Count 8.8 X10^3/uL (2.0-7.7); Basophil# 0.05 X10^3/uL; Basophil% 0.4 % (0-1); Eosinophil# 0.07 X10^3/uL; Eosinophils% 0.6 % (0-5); Hematocrit 34.5 % (37-47); Hemoglobin 11.5 g/dL (12.0-15.0); Lymphocyte # 1.74 X10^3/ul (0.83-4.51); Lymphocyte % 15.1 % (19-41); Mean Corp Hgb Conc 33.3 g/dL (32-36); Mean Corpuscular Hgb 29.8 pg (27.0-32.0); Mean Corpuscular Volume 89.4 fL (81-99); Mean Platelet Vol. 11.3 fl (6.2-12.0); Monocyte# 0.67 X10^3/uL; Monocyte% 5.8 % (0-10); NRBC Flagged by Analyzer 0 % (0-5); Neutrophil # 8.79 X10^3/uL (2.7-7.7); Neutrophil % 76.3 % (47-70); Platelet Count 271 K/mm3 (150-450); RBC Distribution Width CV 13.9 % (11.6-14.6); RBC Distribution Width SD 45.1 fl (35.1-43.9); Red Blood Count 3.86 M/mm3 (4.2-5.4); White Blood Count 11.5 K/mm3 (4.4-11.0)
[2024-05-18 14:56] VITALS: PULSE 94; RESP 18
--- NOTE | 2024-05-18 22:02 | OB.TRI.HP_ITS ---
HPI - General HPI Narrative AMY REDDY, is a 39 F who presents for low back pain and abdominal tightening, known twins with complicaitons of preivous TTTS resolved and low lying placental vessels. no vb lof good fm x 2 Maternal Data Information LOBITO Calculator Estimated Delivery Date Method Current WG Current Estimate 08/06/24 Manual 28w 4d embryo handley sfer on 11/19/23 (day 5) # 2 PFSH PFSH Medical History Missed Dysmenorrhea Post depression Acute pharyngitis, unspecified Wears contact lenses Alcohol use Low iron Injury of head and neck Syncope History of IBS Non-smoker Abnormal Pap smear of cervix Urinary frequency Encounter for IUD removal COVID-19 delivery delivered Family history of hearing loss at age younger than 7 years Anxiety Frequent UTI GERD (gastroesophageal reflux disease) Home Medications ?Medication ?Instructions ?Recorded ?Last Taken ?Type docosahexaenoic acid 200 mg 200 mg PO DAILY 12/13/23 0 05/17/24 20:00 History capsule ( DHA) 200 mg aspirin 81 mg tablet,delayed 81 mg PO QDAY 02/04/24 08:00 History release 81 mg famotidine 20 mg tablet (Pepcid) 20 mg PO DAILY #30 ta bs 02/04/24 05/18/24 07:00 Rx breast pump #1 ea 04/28/24 Unknown Rx Allergy/AdvReac Type Severity Reaction Status Date / Time Penicillins Allergy Rash Verified 05/18/24 13:06 Sulfa (Sulfonamide Allergy Rash Verified 05/18/24 13:06 Antibiotics) Family History Unknown Ovarian cancer Grandfather Alcohol abuse Mother Anemia Anxiety Grandmother Pancreatic cancer Grandmother Diabetes Heart disease Father Hypertension Surgical History Previous section History of dilatation and curettage Shell teeth extracted Social History adopted: No household members: spouse and children number of children: 1 current occupational status: employed 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 animals: Yes pets and animals: dog(s) history of recent travel: No sexually active: Yes Smoking Status: Never smoker second hand exposure: No alcohol intake: never substance use type: does not use well-balanced diet: about half the time caffeine: No eating out: 1-3 times/week during the past year weight has: remained stable what type of physical activity do you participate in: none alex/voodoo: Baptism seatbelt use: always do you feel safe at home: Yes additional social history: - [employer] Teacher/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, [employer] History 3 Elective abortions Hx Para 1 Spontaneous abortions 1 Hx # Term Pregnancies Ectopic pregnancies Hx # Pregnancies Multiple births # of living children 1 Past Pregnancies Del. Date Name GA/Weeks Outcome Route Bth Weight Infant Gen Labor Lgth Anesthesia Del Locatn Provider FOB 08/26/20 Tio 40 live - full term 8#1oz Male epidural [facility] Aaron Thurston Delivery Date: 08/26/20 Last Updated by: Marii Doherty distress Visit Details Expected Delivery Route/Plan Labor Preferences- CB/BF classes: [] labor support person: [] labor intervention preferences: [] pain management options preferred: [] cut cord/dad catch: [] : [] PP control planned: [] discussed possible routes of delivery and associated risks: [] special requests: [] Plans Covid status: [] Flu vaccine: [] Tdap vaccine: [] Rhogam: [] LARC form signed: [] Problem list reviewed and updated with the most current plan of care details and appropriate orders placed. Relevant counseling for the gestational age provided. Continue routine care and follow up unless otherwise noted in visit notes/problem list details OB Flowsheet Initial Weight: Not Recorded Date -?-?-?-?-?-?-?-?-?-?-?-?- EGA Weight BP Urine Prot -?-?-?-?-?-?-?-?-?-?-?-?- Glucose FHR FuHt Pres Dilation -?-?-?-?-?-?-?-?-?-?-?-?- Effaced St Visit Note 01/07/24 -?-?-?-?--?-?-?-?-?-?-?-?- 9w 5d 140 lb 8 oz 126/85 -?-?-?-?-?-?-?-?-?-?-?-?- A 174 -?-?-?-?-?-?-?-?-?-?-?-?- B 175 A -?-?-?-?-?-?-?-?-?-?-?-?- B -?-?-?-?-?-?-?-?-?-?-?-?- A -?-?-?-?-?-?-?-?-?-?-?-?- B A JV- patient is a transfer in from [facility]- s/p IVF of day 5 embryo on 11/19/23. (twin gestation) all labs done with [facility] and normal. 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 JV- patient is a transfer in from [facility]- s/p IVF of day 5 embryo on 11/19/23. (twin gestation) all labs done with [facility] and normal. 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 Her Partner tested negative. The embryo was already tested and they are girls - spontaneous split of embryo. going to see MFM for NT soon. -?-?-?-?-?-?-?-?-?-?-?-?- B 02/04/24 -?-?-?-?-?-?-?-?-?-?-?-?- 13w 5d 145 lb 131/82 Negative -?-?-?-?-?-?-?-?-?-?-?-?- Negative A 150 -?-?-?-?-?-?-?-?-?-?-?-?- B 155 A -?-?-?-?-?-?-?-?-?-?-?-?- B -?-?-?-?-?-?-?-?-?-?-?-?- A -?-?-?-?-?-?-?-?-?-?-?-?- B A Sm- no vb crampi ng nausea improving -?-?-?-?-?-?-?-?-?-?-?-?- B 03/02/24 -?-?-?-?-?-?-?-?-?-?-?-?- 17w 4d 150 lb 2 oz 120/80 Nega tive -?-?-?-?-?-?-?-?-?-?-?-?- Negative A 152 -?-?-?-?-?-?-?-?-?-?-?-?- B 15 158 A Transverse -?-?-?-?-?-?-?-?-?-?-?-?- B Transverse -?-?-?-?-?-?-?-?-?-?-?-?- A -?-?-?-?-?-?-?-?-?-?-?-?- B A JV- still waking up at night vomiting. Has anatomy and echo scheduled. wants to wait until the end of 37 weeks for section due to her schedule. ([facility] recommending delivery at 37 weeks) will try promethazine. -?-?-?-?-?-?-?-?-?-?-?-?- B 04/28/24 -?-?-?-?-?-?-?-?-?-?-?-?- 25w 5d 169 lb 117/85 Negative -?-?-?-?-?-?-?-?-?-?-?-?- Negative A 149 -?-?-?-?-?--?-?-?-?-?-?-?- B 157 A -?-?-?-?-?-?-?-?-?-?-?-?- B -?-?-?-?-?-?-?-?-?-?-?-?- A -?-?-?-?-?-?-?-?-?-?-?-?- B A JV- pt just came from ultrasound. She is status post ablation for ttts, she had a blood transfusion and treated inpatient for pneumonia and hypokalemia. She is still short of breath at times. she was told that she has hematuria and needs follow up. UA ordered. note for a handicap sticker given. albuterol script sent. breast pump rx given. pt wants to continue coming to us if she can and knows has to deliver in [place]. most recent scan today reviewed. normal SD ratio. -?-?-?-?-?-?-?-?-?-?-?-?- B ROS Constitutional Constitutional: Reports systems reviewed and no addt'l complaints, except as documented and as per HPI ENT HEENT: Reports systems reviewed and no addt'l complaints, except as documented Cardiovascular Cardiovascular: Reports systems reviewed and no addt'l complaints, except as documented Respiratory/Chest Respiratory/Chest: Reports systems reviewed and no addt'l complaints, except as documented Gastrointestinal Gastrointestinal: Reports as per HPI Genitourinary Genitourinary: Reports as per HPI Musculoskeletal Musculoskeletal: Reports systems reviewed and no addt'l complaints, except as documented Integumentary Integumentary: Reports systems reviewed and no addt'l complaints, except as documented Neurologic Neurologic: Reports systems reviewed and no addt'l complaints, except as documented Physical Exam Const alert, oriented x3 and no apparent distress HEENT Head and Scalp: normocephalic and atraumatic Neck full ROM and no lymphadenopathy Chest inspection of chest normal Resp normal respiratory effort GI GI Narrative: gravid, abdomen nontender, AGA Manual OB Exam: dilated, effaced and station NST FHR Rate Baby A Baseline: 140 Variability:: Moderate Accelerations:: 15 x 15 Decelerations:: None NST Reactive:: Yes FHR Category:: Category I Uterine Activity:: isolated contractions FHR Rate Baby B Baseline: 140 Variability:: Moderate Accelerations:: 15 x 15 Decelerations:: None NST Reactive:: Yes FHR Category:: Category I Assessment & Plan (1) Monochorionic diamniotic twin gestation: COMMENT: confirmed with M, nl NT. plan 37 week delivery. testing per [facility]. Transfer of Care to [facility] (2) Advanced maternal age (AMA) in : COMMENT: genetics preconception nl (3) Supervision of high-risk : COMMENT: PRR, , LOBITO 08/06/24, identical girls PC Tio, [place] (4) : QUALIFIERS: Weeks of gestation: 28 weeks Qualified Code(s): Z3A.28 - 28 weeks gestation of COMMENT: Genetic & Carrier testing completed with [facility] (5) Threatened labor: (6) Vasa previa: COMMENT: 1.2cm from os, plan delivery at [facility], admissoin at 32 weeks PLAN: Plan monitor, no regular ctx dc home after IVFs Charges/Coding Multi Select Codes Visit Charges Office Visit/Consults: 35680 OV L3 Est 20min Urinary/Genital Urinary/Genital CPT Codes: 68465-28 non-stress test Interp
== END 2024-05-18 15:07 | disposition home or self-care (01) ==
LOC: WPOUT 13:05 → WP 13:05
PROVIDERS: PCP Internal Medicine; Referring Provider Obstetrics & Gynecology; Visit Provider Obstetrics & Gynecology
DX: O47.03 False labor before 37 completed weeks of gestation, third trimester (principal); O99.891 Other specified diseases and conditions complicating pregnancy; M54.50 Low back pain, unspecified; O99.613 Diseases of the digestive system complicating pregnancy, third trimester; K21.9 Gastro-esophageal reflux disease without esophagitis; O30.033 Twin pregnancy, monochorionic/diamniotic, third trimester; O34.219 Maternal care for unspecified type scar from previous cesarean delivery; O09.523 Supervision of elderly multigravida, third trimester; Z14.1 Cystic fibrosis carrier; Z88.0 Allergy status to penicillin; Z88.2 Allergy status to sulfonamides; Z79.82 Long term (current) use of aspirin; Z3A.28 28 weeks gestation of pregnancy
CPT/HCPCS: 96360; 36415; 59025; 59050; 85025; 99221; G0378

== ENCOUNTER 2024-05-30 08:47 | Outpatient (CLI) | payer OTHER, SELFPAY ==
[2024-05-30] VITALS (10 sets, daily range): PULSE 86–105; O2SAT 97–98
--- NOTE | 2024-05-30 12:15 | OB.TRI.PN_ITS ---
Progress Notes Date of Service: 05/30/24 Progress Note: Patient presents for triage evaluation secondary to NST for twins at 30.2 weeks FHT A: 140 Moderate variability reactive no decelerations category I tracing B: 140 Moderate variability reactive no decelerations category I tracing [place]: no Contractions Assessment and plan: Reactive NST, reassuring maternal and status patient discharged to home to follow-up in the office at next appt. See problem list details for additional plan information. Charges/Coding Multi Select Codes Urinary/Genital Urinary/Genital CPT Codes: 08492-26 non-stress test Interp Assessment & Plan (1) Vasa previa: COMMENT: 1.2cm from os, plan delivery at [facility], admissoin at 32 weeks (2) Threatened labor: (3) Hematuria: (4) Pneumonia affecting : COMMENT: Finished antibiotic (5) History of maternal blood transfusion, currently : (6) Decreased movements, second trimester, fetus 1: (7) Twin to twin transfusion in second trimester: COMMENT: A with Poly and B with oligo, nl MCA dopplers. referral to [place]. Admitted to [facility] (8) History of delivery: COMMENT: plan RLTCS with (9) Monochorionic diamniotic twin gestation: COMMENT: confirmed with MFM, nl NT. plan 37 week delivery. testing per [facility]. 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 plan echo at 22-24
== END 2024-05-30 10:05 | disposition home or self-care (01) ==
LOC: WPOUT 08:49 → WP 08:50
PROVIDERS: PCP Internal Medicine; Referring Provider Advanced Practice Midwife; Visit Provider Advanced Practice Midwife
DX: O47.03 False labor before 37 completed weeks of gestation, third trimester (principal); O36.8131 Decreased fetal movements, third trimester, fetus 1; O34.219 Maternal care for unspecified type scar from previous cesarean delivery; O30.033 Twin pregnancy, monochorionic/diamniotic, third trimester; O09.523 Supervision of elderly multigravida, third trimester; O09.813 Supervision of pregnancy resulting from assisted reproductive technology, third trimester; Z3A.30 30 weeks gestation of pregnancy; Z14.1 Cystic fibrosis carrier
CPT/HCPCS: 59025; 59050; 99221; G0378

== ENCOUNTER 2024-06-06 08:47 | Outpatient (CLI) | payer OTHER, SELFPAY ==
[2024-06-06 09:10] VITALS: BMI 28.2
[2024-06-06 09:22] VITALS: BP 109/77; PULSE 113
[2024-06-06 09:23] VITALS: TEMP 36.8
--- NOTE | 2024-06-06 09:36 | US_ITS ---
PROCEDURE: BIOPHYSICAL PROF W/O NON STRES REASON FOR EXAM: Nonreactive NST TECHNIQUE: Biophysical profile. COMPARISON: None. FINDINGS: Baby B: Cephalic presentation. heart rate 145 Amniotic fluid normal. Largest fluid pocket measures 4.1 cm. The placenta is anterior and not low-lying. Biophysical profile: Breathing movements: 2 Gross body movements: 2 tone: 2 Amniotic fluid volume: 2 Total score: 8/8 US/Biophysical Prof W/O Non Stres IMPRESSION: Normal biophysical profile for twin B. Reading Location: [id number]
--- NOTE | 2024-06-06 09:59 | US_ITS ---
PROCEDURE: BIOPHYSICAL PROF W/O NON STRES REASON FOR EXAM: NST nonreactive. TECHNIQUE: Biophysical profile was obtained. COMPARISON: None FINDINGS: Baby A: Cephalic presentation. heart rate of 48 beats per minute. Amniotic fluid is within normal limits. Largest fluid pocket is 3.7 cm. Placenta is located anteriorly and not low-lying. Biophysical profile: Breathing movements 2 Gross body movement 2 tone 2 amniotic fluid volume 2 Total score: 8 US/Biophysical Prof W/O Non Stres IMPRESSION: Biophysical profile: 11/11 Reading Location: [id number]
--- NOTE | 2024-06-06 10:41 | OB.TRI.PN_ITS ---
Progress Notes Date of Service: 06/06/24 Progress Note: Patient presents for triage evaluation secondary to scheduled NST at 31.2 weeks. FHT: 140 Moderate variability reactive no decelerations category I tracing for both twins but unable to keep on monitor at same time. BPP ordered [place]: no Contractions Assessment and plan: BPP 11/11 for both twins, Reactive NST, reassuring maternal and status patient discharged to home to follow-up in office. See problem list details for additional plan information. Charges/Coding Multi Select Codes Urinary/Genital Urinary/Genital CPT Codes: 05212-30 non-stress test Interp Assessment & Plan (1) Vasa previa: COMMENT: 1.2cm from os, plan delivery at [facility], admissoin at 32 weeks (2) Threatened labor: (3) Hematuria: (4) Pneumonia affecting : COMMENT: Finished antibiotic (5) History of maternal blood transfusion, currently : (6) Decreased movements, second trimester, fetus 1: (7) Twin to twin transfusion in second trimester: COMMENT: A with Poly and B with oligo, nl MCA dopplers. referral to [place]. Admitted to [facility] (8) History of delivery: COMMENT: plan RLTCS with (9) Monochorionic diamniotic twin gestation: COMMENT: confirmed with MFM, nl NT. plan 37 week delivery. testing per [facility]. 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 plan echo at 22-24
== END 2024-06-06 10:41 | disposition home or self-care (01) ==
LOC: WPOUT 08:51 → WP 08:52
PROVIDERS: PCP Internal Medicine; Referring Provider Advanced Practice Midwife; Visit Provider Advanced Practice Midwife
DX: O60.03 Preterm labor without delivery, third trimester (principal); Z3A.31 31 weeks gestation of pregnancy; O30.033 Twin pregnancy, monochorionic/diamniotic, third trimester; O09.513 Supervision of elderly primigravida, third trimester
CPT/HCPCS: 59025; 59050; 76819; 99221; G0378

== ENCOUNTER 2024-06-13 09:55 | Outpatient (CLI) | payer OTHER, SELFPAY ==
[2024-06-13 10:09] VITALS: BMI 29.0
--- NOTE | 2024-06-13 12:35 | OB.TRI.PN ---
Progress Notes Date of Service: 06/13/24 Progress Note: Patient presents for triage evaluation secondary to scheduled NST for Twins at 32.2 weeks FHT: 130 Moderate variability reactive no decelerations category I tracing 135 Moderate variability reactive no decelerations category I tracing [place]: no Contractions Assessment and plan: Reactive NST, reassuring maternal and status patient discharged to home to follow-up at next appt. See problem list details for additional plan information. Charges/Coding Multi Select Codes Urinary/Genital Urinary/Genital CPT Codes: 81168-22 non-stress test Interp Assessment & Plan (1) Vasa previa: COMMENT: 1.2cm from os, plan delivery at [facility], admissoin at 32 weeks (2) Threatened labor: (3) Hematuria: (4) Pneumonia affecting : COMMENT: Finished antibiotic (5) History of maternal blood transfusion, currently : (6) Decreased movements, second trimester, fetus 1: (7) Twin to twin transfusion in second trimester: COMMENT: A with Poly and B with oligo, nl MCA dopplers. referral to [facility]. Admitted to [facility] (8) History of delivery: COMMENT: plan RLTCS with (9) Monochorionic diamniotic twin gestation: COMMENT: confirmed with M, nl NT. plan 37 week delivery. testing per [facility]. 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 plan echo at 22-24
== END 2024-06-13 11:08 | disposition home or self-care (01) ==
LOC: WPOUT 09:56 → WP 09:56
PROVIDERS: PCP Internal Medicine; Referring Provider Advanced Practice Midwife; Visit Provider Advanced Practice Midwife
DX: O43.192 Other malformation of placenta, second trimester (principal); O43.022 Fetus-to-fetus placental transfusion syndrome, second trimester; O30.032 Twin pregnancy, monochorionic/diamniotic, second trimester; O09.522 Supervision of elderly multigravida, second trimester; O47.02 False labor before 37 completed weeks of gestation, second trimester; Z3A.00 Weeks of gestation of pregnancy not specified
CPT/HCPCS: 59025; 59050; 99221; G0378

== ENCOUNTER 2024-06-23 08:50 | Outpatient (CLI) | payer OTHER, SELFPAY ==
[2024-06-13 10:29] VITALS: BP 118/73; RESP 16; TEMP 37.1; O2SAT 98
[2024-06-23 09:15] VITALS: RESP 15; TEMP 36.4; O2SAT 99
[2024-06-23 09:30] VITALS: BP 134/87; PULSE 113
[2024-06-23 09:45] VITALS: BP 130/81; PULSE 94
[2024-06-23 10:00] VITALS: BP 125/80; PULSE 100
[2024-06-23 12:50] LABS: Protein, Urine (Random) 13.2 mg/dL (0.0-12.0)
[2024-06-23 12:54] LABS: Protein:Creat Ratio 190 mg/g CRE (0-200)
--- NOTE | 2024-06-23 17:45 | OB.TRI.HP_ITS ---
HPI - General HPI Narrative AMY REDDY, is a 39 F who presents Maternal Data Information LOBITO Calculator Estimated Delivery Date Method Current WG Current Estimate 08/06/24 Manual 33w 5d embryo handley sfer on 11/19/23 (day 5) # 2 PFSH PFSH Medical History Missed Dysmenorrhea Post depression Acute pharyngitis, unspecified Wears contact lenses Alcohol use Low iron Injury of head and neck Syncope History of IBS Non-smoker Abnormal Pap smear of cervix Urinary frequency Encounter for IUD removal COVID-19 delivery delivered Family history of hearing loss at age younger than 7 years Anxiety Frequent UTI GERD (gastroesophageal reflux disease) Home Medications ?Medication ?Instructions ?Recorded ?Last Taken ?Type docosahexaenoic acid 200 mg 200 mg PO DAILY 12/13/23 0 06/12/24 History capsule ( DHA) aspirin 81 mg tablet,delayed 81 mg PO QDAY 02/04/24 History release famotidine 20 mg tablet (Pepcid) 20 mg PO DAILY #30 ta bs 02/04/24 06/12/24 Rx breast pump #1 ea 04/28/24 Unknown Rx Allergy/AdvReac Type Severity Reaction Status Date / Time Penicillins Allergy Rash Verified 06/13/24 10:09 Sulfa (Sulfonamide Allergy Rash Verified 06/13/24 10:09 Antibiotics) Family History Unknown Ovarian cancer Grandfather Alcohol abuse Mother Anemia Anxiety Grandmother Pancreatic cancer Grandmother Diabetes Heart disease Father Hypertension Surgical History Previous section History of dilatation and curettage [place] teeth extracted Social History adopted: No household members: spouse and children number of children: 1 current occupational status: employed 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 animals: Yes pets and animals: dog(s) history of recent travel: No sexually active: Yes Smoking Status: Never smoker second hand exposure: No alcohol intake: never substance use type: does not use well-balanced diet: about half the time caffeine: No eating out: 1-3 times/week during the past year weight has: remained stable what type of physical activity do you participate in: none alex/hinduism: Anabaptism seatbelt use: always do you feel safe at home: Yes additional social history: - [employer] 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 Date Name GA/Weeks Outcome Route Bth Weight Gen Labor Lgth Anesthesia Del Locatn Provider FOB 08/26/20 Dixie 40 live - full term 8#1oz Male epidural [facility] Aaron Thurston Delivery Date: 08/26/20 Last Updated by: Marii Doherty distress Visit Details Expected Delivery Route/Plan Labor Preferences- CB/BF classes: [] labor support person: [] labor intervention preferences: [] pain management options preferred: [] cut cord/dad catch: [] : [] PP control planned: [] discussed possible routes of delivery and associated risks: [] special requests: [] Plans Covid status: [] Flu vaccine: [] Tdap vaccine: [] Rhogam: [] LARC form signed: [] Problem list reviewed and updated with the most current plan of care details and appropriate orders placed. Relevant counseling for the gestational age provided. Continue routine care and follow up unless otherwise noted in visit notes/problem list details OB Flowsheet Initial Weight: Not Recorded Date -?-?-?-?-?-?-?-?-?-?-?-?- EGA Weight BP Urine Prot -?-?-?-?-?-?-?-?-?-?-?-?- Glucose FHR FuHt Pres Dilation -?-?-?-?-?-?-?-?-?-?-?-?- Effaced St Visit Note 01/07/24 -?-?-?-?-?-?-?-?-?-?-?-?- 9w 5d 140 lb 8 oz 126/85 -?-?-?-?-?-?-?-?-?-?-?-?- A 174 -?-?-?-?-?-?-?-?-?-?-?-?- B 175 A -?-?-?-?-?-?-?-?-?-?-?-?- B -?-?-?-?-?-?-?-?-?-?-?-?- A -?-?-?-?-?-?-?-?-?-?-?-?- B A JV- patient is a transfer in [facility]- s/p IVF of day 5 embryo on 11/19/23. (twin gestation) all labs done with [facility] and normal. 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 JV- patient is a transfer in from [facility]- s/p IVF of day 5 embryo on 11/19/23. (twin gestation) all labs done with [facility] and normal. 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 Her Partner tested negative. The embryo was already tested and they are girls - spontaneous split of embryo. going to see MFM for NT soon. -?-?-?-?-?-?-?-?-?-?-?-?- B 02/04/24 -?-?-?-?-?-?-?-?-?-?-?-?- 13w 5d 145 lb 131/82 Negative -?-?-?-?-?-?-?-?-?-?-?-?- Negative A 150 -?-?-?-?-?-?-?-?-?-?-?-?- B 155 A -?-?-?-?-?-?-?-?-?-?-?-?- B -?-?-?-?-?-?-?-?-?-?-?-?- A -?-?-?-?-?-?-?-?-?-?-?-?- B A Sm- no vb crampi ng nausea improving -?-?-?-?-?-?-?-?-?-?--?-?- B 03/02/24 -?-?-?-?-?-?-?-?-?-?-?-?- 17w 4d 150 lb 2 oz 120/80 Nega tive -?-?-?-?-?-?-?-?-?-?-?-?- Negative A 152 -?-?-?-?-?-?-?-?-?-?-?-?- B 15 158 A Transverse -?-?-?-?-?-?-?-?-?-?-?-?- B Transverse -?-?-?-?-?-?-?-?-?-?-?-?- A -?-?-?-?-?-?-?-?-?-?-?-?- B A JV- still waking up at night vomiting. Has anatomy and echo scheduled. wants to wait until the end of 37 weeks for section due to her schedule. ([facility] recommending delivery at 37 weeks) will try promethazine. -?-?-?-?-?-?-?-?-?-?-?-?- B 04/28/24 -?-?-?-?-?-?-?-?-?-?-?-?- 25w 5d 169 lb 117/85 Negative -?-?-?-?-?-?-?-?-?-?-?-?- Negative A 149 -?-?-?-?-?-?-?-?-?-?-?-?- B 157 A -?-?-?-?-?-?-?-?-?-?-?-?- B -?-?-?-?-?-?-?-?-?-?-?-?- A -?-?-?-?-?-?-?-?-?-?-?-?- B A JV- pt just came from ultrasound. She is status post ablation for ttts, she had a blood transfusion and treated inpatient for pneumonia and hypokalemia. She is still short of breath at times. she was told that she has hematuria and needs follow up. UA ordered. note for a handicap sticker given. albuterol script sent. breast pump rx given. pt wants to continue coming to us if she can and knows has to deliver in [place]. most recent scan today reviewed. normal SD ratio. -?-?-?-?-?-?-?-?-?-?-?-?- B 05/23/24 -?-?-?-?-?-?-?-?-?-?-?-?- 29w 2d 166 lb 108/75 Negative -?-?-?-?-?-?-?-?-?-?-?-?- Negative A 140 -?-?-?-?-?-?-?-?-?-?-?-?- B 130 A -?-?-?-?-?-?-?-?-?-?-?-?- B -?-?-?-?-?-?-?-?-?-?-?-?- A -?-?-?-?-?-?-?-?-?-?-?-?- B A SM- discussed bi rth preferences, plan admitat 32 weeks to [place] delivery 34 -?-?-?-?-?-?-?-?-?-?-?-?- B ROS Constitutional Constitutional: Reports systems reviewed and no addt'l complaints, except as documented Gastrointestinal Gastrointestinal: Denies bloating, constipation, cramping, diarrhea, nausea or vomiting Genitourinary Genitourinary: Reports other Details: Denies vaginal odor, vaginal bleeding, or vaginal discharge ; Denies difficulty urinating or flank pain NST FHR Rate Baby A Baseline: 140 Variability:: Moderate Accelerations:: 15 x 15 Decelerations:: None NST Reactive:: Yes FHR Category:: Category I FHR Rate Baby B Baseline: 140 Variability:: Moderate Accelerations:: 15 x 15 Decelerations:: None NST Reactive:: Yes FHR Category:: Category I Assessment & Plan (1) Vasa previa: COMMENT: 1.2cm from os, plan delivery at [facility], admissoin at 32 weeks (2) Threatened labor: (3) Hematuria: (4) Pneumonia affecting : COMMENT: Finished antibiotic (5) History of maternal blood transfusion, currently : (6) Decreased movements, second trimester, fetus 1: (7) Twin to twin transfusion in second trimester: COMMENT: A with Poly and B with oligo, nl MCA dopplers. referral to [facility]. Admitted to [facility] (8) History of delivery: COMMENT: plan RLTCS with (9) Monochorionic diamniotic twin gestation: COMMENT: confirmed with MFM, nl NT. plan 37 week delivery. testing per [facility]. Transfer of Care to [facility] Elías (10) Advanced maternal age (AMA) in : COMMENT: genetics preconception nl (11) Cystic fibrosis carrier: COMMENT: is not a carrier of CF (12) Supervision of high-risk : COMMENT: PRR, , LOBITO 08/06/24, identical girls PC Tio, Bertrand (13) : QUALIFIERS: Weeks of gestation: 29 weeks Qualified Code(s): Z3A.29 - 29 weeks gestation of COMMENT: Genetic & Carrier testing completed with [facility] (14) Conceived by in vitro fertilization: COMMENT: embryo split after fertilization. plan echo at 22-24 PLAN: Plan reactive twin nst Charges/Coding Multi Select Codes Urinary/Genital Urinary/Genital CPT Codes: 52230-06 non-stress test Interp
== END 2024-06-23 10:10 | disposition home or self-care (01) ==
LOC: WPOUT 08:56 → WP 08:56
PROVIDERS: PCP Internal Medicine; Referring Provider Obstetrics & Gynecology; Visit Provider Obstetrics & Gynecology
DX: O47.03 False labor before 37 completed weeks of gestation, third trimester (principal); O30.033 Twin pregnancy, monochorionic/diamniotic, third trimester; O99.613 Diseases of the digestive system complicating pregnancy, third trimester; K21.9 Gastro-esophageal reflux disease without esophagitis; O09.523 Supervision of elderly multigravida, third trimester; O34.211 Maternal care for low transverse scar from previous cesarean delivery; Z3A.33 33 weeks gestation of pregnancy; Z88.0 Allergy status to penicillin; Z88.2 Allergy status to sulfonamides; Z79.82 Long term (current) use of aspirin; Z79.899 Other long term (current) drug therapy; Z14.1 Cystic fibrosis carrier
CPT/HCPCS: 59025; 59050; 82570; 84156; 99221; G0378

== ENCOUNTER → 2024-06-27 | Outpatient (CLI) | payer OTHER, SELFPAY | END | disposition home or self-care (01) | LOC: LABSPEC 11:05 | PROVIDERS: PCP Internal Medicine; Referring Provider Nurse Practitioner; Visit Provider Nurse Practitioner | DX: Z36.85 Encounter for antenatal screening for Streptococcus B (principal) | CPT/HCPCS: 87081 ==

== ENCOUNTER 2024-06-30 08:56 | Outpatient (CLI) | payer OTHER, SELFPAY ==
[2024-06-30 09:20] VITALS: BP 124/82; PULSE 108; RESP 16; TEMP 37.7; O2SAT 97
--- NOTE | 2024-06-30 09:47 | OB.TRI.HP_ITS ---
HPI - General General Chief Complaint: NST for wellbeing HPI Narrative AMY REDDY, is a 39 F who presents for NST fot WP for mono-di twins. Maternal Data Information LOBITO Calculator Estimated Delivery Date Method Current WG Current Estimate 08/06/24 Manual 34w 5d embryo handley sfer on 11/19/23 (day 5) # 2 PFSH PFSH Medical History Missed Dysmenorrhea Post depression Acute pharyngitis, unspecified Wears contact lenses Alcohol use Low iron Injury of head and neck Syncope History of IBS Non-smoker Abnormal Pap smear of cervix Urinary frequency Encounter for IUD removal COVID-19 delivery delivered Family history of hearing loss at age younger than 7 years Anxiety Frequent UTI GERD (gastroesophageal reflux disease) Home Medications ?Medication ?Instructions ?Recorded ?Last Taken ?Type docosahexaenoic acid 200 mg 200 mg PO DAILY 12/13/23 0 06/29/24 History capsule ( DHA) aspirin 81 mg tablet,delayed 81 mg PO QDAY 02/04/24 History release famotidine 20 mg tablet (Pepcid) 20 mg PO DAILY #30 ta bs 02/04/24 06/29/24 Rx breast pump #1 ea 04/28/24 Unknown Rx ferrous sulfate 325 mg (65 mg 325 mg PO QODAY 06/30/24 06/30/24 History iron) tablet (Iron (ferrous sulfate)) Allergy/AdvReac Type Severity Reaction Status Date / Time Penicillins Allergy Rash Verified 06/30/24 09:26 Sulfa (Sulfonamide Allergy Rash Verified 06/30/24 09:26 Antibiotics) Family History Unknown Ovarian cancer Grandfather Alcohol abuse Mother Anemia Anxiety Grandmother Pancreatic cancer Grandmother Diabetes Heart disease Father Hypertension Surgical History Previous section History of dilatation and curettage [place] teeth extracted Social History adopted: No household members: spouse and children number of children: 1 current occupational status: employed 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 animals: Yes pets and animals: dog(s) history of recent travel: No sexually active: Yes Smoking Status: Never smoker second hand exposure: No alcohol intake: never substance use type: does not use well-balanced diet: about half the time caffeine: No eating out: 1-3 times/week during the past year weight has: remained stable what type of physical activity do you participate in: none alex/anabaptist: Baptist seatbelt use: always do you feel safe at home: Yes additional social history: - [employer] 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 Date Name GA/Weeks Outcome Route Bth Weight Infant Gen Labor Lgth Anesthesia Del Locatn Provider FOB 08/26/20 Tio 40 live - full term 8#1oz Male epidural [facility] Aaron Thurston Delivery Date: 08/26/20 Last Updated by: Marii Doherty distress Visit Details Expected Delivery Route/Plan Labor Preferences- CB/BF classes: [] labor support person: [] labor intervention preferences: [] pain management options preferred: [] cut cord/dad catch: [] : [] PP control planned: [] discussed possible routes of delivery and associated risks: [] special requests: [] Plans Covid status: [] Flu vaccine: [] Tdap vaccine: [] Rhogam: [] LARC form signed: [] Problem list reviewed and updated with the most current plan of care details and appropriate orders placed. Relevant counseling for the gestational age provided. Continue routine care and follow up unless otherwise noted in visit notes/problem list details OB Flowsheet Initial Weight: Not Recorded Date -?-?-?-?-?-?-?-?-?-?-?-?- EGA Weight BP Urine Prot -?-?-?-?-?-?-?-?-?-?-?-?- Glucose FHR FuHt Pres Dilation -?-?-?-?-?-?-?-?-?-?-?-?- Effaced St Visit Note 01/07/24 -?-?-?-?-?-?-?-?-?-?-?-?- 9w 5d 140 lb 8 oz 126/85 -?-?-?-?-?-?-?-?-?-?-?-?- A 174 -?-?-?-?-?-?-?-?--?-?-?-?- B 175 A -?-?-?-?-?-?-?-?-?-?-?-?- B -?-?-?-?-?-?-?-?-?-?-?-?- A -?-?-?-?-?-?-?-?-?-?-?-?- B A JV- patient is a transfer in from [facility]- s/p IVF of day 5 embryo on 11/19/23. (twin gestation) all labs done with [facility] and normal. 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 JV- patient is a transfer in from [facility]- s/p IVF of day 5 embryo on 11/19/23. (twin gestation) all labs done with [facility] and normal. 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 Her Partner tested negative. The embryo was already tested and they are girls - spontaneous split of embryo. going to see MFM for NT soon. -?-?-?-?-?-?-?-?-?-?-?-?- B 02/04/24 -?-?-?-?-?-?-?-?-?-?-?-?- 13w 5d 145 lb 131/82 Negative -?-?-?-?-?-?-?-?-?-?-?-?- Negative A 150 -?-?-?-?-?-?-?-?-?-?-?-?- B 155 A -?-?-?-?-?-?-?-?-?-?-?-?- B -?-?-?-?-?-?-?-?-?-?-?-?- A -?-?-?-?-?-?-?-?-?-?-?-?- B A Sm- no vb crampi ng nausea improving -?-?-?-?-?-?-?-?-?-?-?-?- B 03/02/24 -?-?-?-?-?-?-?-?-?-?-?-?- 17w 4d 150 lb 2 oz 120/80 Nega tive -?-?-?-?-?-?-?-?-?-?-?-?- Negative A 152 -?-?-?-?-?-?-?-?-?-?-?-?- B 15 158 A Transverse -?-?-?-?-?-?-?-?-?-?-?-?- B Transverse -?-?-?-?-?-?-?-?-?-?-?-?- A -?-?-?-?-?-?-?-?-?-?-?-?- B A JV- still waking up at night vomiting. Has anatomy and echo scheduled. wants to wait until the end of 37 weeks for section due to her schedule. ([facility] recommending delivery at 37 weeks) will try promethazine. -?-?-?-?-?-?-?-?-?-?-?-?- B 04/28/24 -?-?-?-?-?-?-?-?-?-?-?-?- 25w 5d 169 lb 117/85 Negative -?-?-?-?-?-?-?-?-?-?-?-?- Negative A 149 -?-?-?-?-?-?-?-?-?-?-?-?- B 157 A -?-?-?-?-?-?-?-?-?-?-?-?- B -?-?-?-?-?-?-?-?-?-?-?-?- A -?-?-?-?-?-?-?-?-?-?-?-?- B A JV- pt just came from ultrasound. She is status post ablation for ttts, she had a blood transfusion and treated inpatient for pneumonia and hypokalemia. Sh e is still short of breath at times. she was told that she has hematuria and needs follow up. UA ordered. note for a handicap sticker given. albuterol script sent. breast pump rx given. pt wants to continue coming to us if she can and knows has to deliver in [place]. most recent scan today reviewed. normal SD ratio. -?-?-?-?-?-?-?-?-?-?-?-?- B 05/23/24 -?-?-?-?-?-?-?-?-?-?-?-?- 29w 2d 166 lb 108/75 Negative -?-?-?-?-?-?-?-?-?-?-?-?- Negative A 140 -?-?-?-?-?-?-?-?-?-?-?-?- B 130 A -?-?-?-?-?-?-?-?-?-?-?-?- B -?-?-?-?-?-?-?-?-?-?-?-?- A -?-?-?-?-?-?-?-?-?-?-?-?- B A SM- discussed bi rth preferences, plan admitat 32 weeks to [place] delivery 34 -?-?-?-?-?-?-?-?-?-?-?-?- B NST FHR Rate Baby A Baseline: 140 Variability:: Moderate Accelerations:: 15 x 15 Decelerations:: None NST Reactive:: Yes FHR Category:: Category I FHR Rate Baby B Baseline: 135 Variability:: Moderate Accelerations:: 15 x 15 Decelerations:: None NST Reactive:: Yes FHR Category:: Category I Assessment Assessment Detail: occasionally matching HR, but has split variability with different HR being picked up throughout. Assessment & Plan (1) NST (non-stress test) reactive: (2) Monochorionic diamniotic twin gestation: COMMENT: confirmed with MFM, nl NT. plan 37 week delivery. testing per M. Transfer of Care to [facility] Elías (3) Supervision of high-risk : COMMENT: PRR, , LOBITO 08/06/24, identical girls PC Tio, Bertrand (4) : QUALIFIERS: Weeks of gestation: 29 weeks Qualified Code(s): Z3A.29 - 29 weeks gestation of COMMENT: Genetic & Carrier testing completed with [facility] PLAN: Plan Patient presents for triage evaluation secondary to NST for routine wellbeing for mono-di twin . no concerns. FHT: Moderate variability reactive no decelerations category I tracing [place]: Contractions Assessment and plan: Reactive NST, reassuring maternal and status patient discharged to home to follow-up prn. See problem list details for additional plan information. Charges/Coding Procedures Urinary/Genital 52xxx-[id number]: 72525-99 non-stress test Interp
== END 2024-06-30 09:58 | disposition home or self-care (01) ==
LOC: WPOUT 08:57 → WP 09:11
PROVIDERS: PCP Internal Medicine; Referring Provider Obstetrics & Gynecology; Visit Provider Obstetrics & Gynecology
DX: O30.033 Twin pregnancy, monochorionic/diamniotic, third trimester (principal); O99.613 Diseases of the digestive system complicating pregnancy, third trimester; K21.9 Gastro-esophageal reflux disease without esophagitis; O99.283 Endocrine, nutritional and metabolic diseases complicating pregnancy, third trimester; E61.1 Iron deficiency; O34.219 Maternal care for unspecified type scar from previous cesarean delivery; Z3A.34 34 weeks gestation of pregnancy; Z88.0 Allergy status to penicillin; Z88.2 Allergy status to sulfonamides
CPT/HCPCS: 59025

== ENCOUNTER 2024-07-07 08:55 | Outpatient (CLI) | payer OTHER, SELFPAY ==
[2024-07-07 09:16] VITALS: BMI 29.7
--- NOTE | 2024-07-07 11:27 | OB.TRI.HP_ITS ---
HPI - General HPI Narrative AMY REDDY, is a 39 F who presents for NST for twin [facility] Medical History (Updated 07/10/24 @ 22:[address] Nelly Walker MD) Post depression Dysmenorrhea Acute pharyngitis, unspecified Wears contact lenses Alcohol use Low iron Injury of head and neck Syncope History of IBS Non-smoker Missed Abnormal Pap smear of cervix Urinary frequency Encounter for IUD removal COVID-19 delivery delivered Family history of hearing loss at age younger than 7 years Anxiety Frequent UTI GERD (gastroesophageal reflux disease) Home Medications ?Medication ?Instructions ?Recorded ?Last Taken ?Type docosahexaenoic acid 200 mg 200 mg PO DAILY 12/13/23 07/10/24 08:00 History capsule ( DHA) 200 mg famotidine 20 mg tablet (Pepcid) 20 mg PO DAILY pregna ncy #30 tabs 02/04/24 07/10/24 08:00 Rx 40 mg breast pump #1 ea 04/28/24 Unknown Rx ferrous sulfate 325 mg (65 mg 325 mg PO QODAY pregnanc y 06/30/24 06/30/24 History iron) tablet (Iron (ferrous sulfate)) Allergy/AdvReac Type Severity Reaction Status Date / Time Penicillins Allergy Rash Verified 07/10/24 20:30 Sulfa (Sulfonamide Allergy Rash Verified 07/10/24 20:30 Antibiotics) Family History Unknown Ovarian cancer Grandfather Alcohol abuse Mother Anemia Anxiety Grandmother Pancreatic cancer Grandmother Diabetes Heart disease Father Hypertension Surgical History (Updated 07/10/24 @ 22:[address] 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 animals: Yes pets and animals: dog(s) history of recent travel: No sexually active: Yes Smoking Status: Never smoker second hand exposure: No alcohol intake: never substance use type: does not use well-balanced diet: about half the time caffeine: No eating out: 1-3 times/week during the past year weight has: remained stable what type of physical activity do you participate in: none alex/yarsanism: Jainism seatbelt use: always do you feel safe at home: Yes additional social history: - [employer] 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 Date Name GA/Weeks Outcome Route Bth Weight Infant Gen Labor Lgth Anesthesia Del Locatn Provider FOB 08/26/20 Tio 40 live - full term 8#1oz Male [facility]ural [facility] 07/10/24 36 live - spin al [facility] 07/10/24 36 live - spin al [facility] Delivery Date: 08/26/20 Last Updated by: Marii Doherty distress NST FHR Rate Baby A Baseline: 130 Variability:: Moderate Accelerations:: 15 x 15 Decelerations:: None NST Reactive:: Yes FHR Category:: Category I FHR Rate Baby B Baseline: 120 Variability:: Moderate Accelerations:: 15 x 15 Decelerations:: None NST Reactive:: Yes FHR Category:: Category I Assessment & Plan (1) Twin to twin transfusion in second trimester: COMMENT: s/p treatment at [facility] and resolution (2) Monochorionic diamniotic twin gestation: COMMENT: confirmed with [facility], nl NT. plan 37 week delivery. testing per [facility]. Transfer of Care to [facility]. Plan delivery in [place]. PLAN: Plan reactive NST x 2 Charges/Coding Multi Select Codes Urinary/Genital Urinary/Genital CPT Codes: 97107-03 non-stress test Interp
== END 2024-07-07 09:50 | disposition home or self-care (01) ==
LOC: WPOUT 08:58 → WP 08:59
PROVIDERS: PCP Internal Medicine; Referring Provider Obstetrics & Gynecology; Visit Provider Obstetrics & Gynecology
DX: O30.039 Twin pregnancy, monochorionic/diamniotic, unspecified trimester (principal); O99.619 Diseases of the digestive system complicating pregnancy, unspecified trimester; K21.9 Gastro-esophageal reflux disease without esophagitis; O99.280 Endocrine, nutritional and metabolic diseases complicating pregnancy, unspecified trimester; E61.1 Iron deficiency; O34.219 Maternal care for unspecified type scar from previous cesarean delivery; Z88.0 Allergy status to penicillin; Z79.899 Other long term (current) drug therapy; Z3A.00 Weeks of gestation of pregnancy not specified
CPT/HCPCS: 59025; 59050; 99221; G0378

== ENCOUNTER 2024-07-10 20:12 | Inpatient (IN) | payer OTHER, SELFPAY ==
[2024-07-10] VITALS (9 sets, daily range): BP systolic 105–130; BP diastolic 71–89; PULSE 59–97; RESP 12–18; TEMP 36–37.3; O2SAT 98–100; BMI 30.4
--- NOTE | 2024-07-10 00:25 | FALS_PTH ---
PATIENT: AMY REDDY LOC: [facility] U#:[id number] AGE/SX: 39/F ROOM: [facility] RE07/10/[address]: Dr. Nelly Walker MD : 1985 BED: 1 DIS: 07/13/2024 SPEC #: [id number] RECD: 07/11/24 01:02 STATUS: SHANIA MCNAMARA #: [id number] CRYS: 07/10/24 00:[address]: Nelly Walker DEPT: SURGICAL PATHOLOGY RECD BY: Sara Shaw ENTERED: 07/11/24 08:28 SP TYPE: FALL TUBES OTHR DR: Dr. Dwight Rios MD Tissues: A - Fallopian tube Procedures: Surgery Specimen Level II HEADER OPERATION: Tubal ligation PRE-OP DIAGNOSIS: Sterilization TISSUE SUBMITTED: A- Bilateral fallopian tubes- stitch on left MICROSCOPIC DIAGNOSIS A. Fallopian tubes, sterilization, bilateral salpingectomy: * Complete luminal cross-section confirmed x2. * Detached benign paratubal cyst. MICROSCOPIC DESCRIPTION Slides are reviewed. GROSS DESCRIPTION A. Received in formalin in a container labeled with the patient's name, date of , and stitch on left are bilateral, fimbriated fallopian tube segments, with a stitch received unattached and free-floating in the container. Each fallopian tube is 7.5 cm in length by 1.0 cm in diameter with burnham-pink, smooth serosa and feathery fimbriated ends. Serial sections of each reveal a pinpoint lumen. Received in the same container is a 0.9 x 0.8 cm thin-walled paratubal cyst filled with thin serous fluid. No orientation is able to be determined. Behavioral Health Therapist sections:A1. 1 fallopian tube with separate cystA2. Second fallopian tube [facility] 07-11-2024 CPT:07052
[2024-07-10 20:33] LABS: Absolute Neutrophil Count 6.9 X10^3/uL (2.0-7.7); Basophil# 0.07 X10^3/uL; Basophil% 0.7 % (0-1); Eosinophil# 0.09 X10^3/uL; Eosinophils% 0.9 % (0-5); Hematocrit 38.5 % (37-47); Hemoglobin 13.8 g/dL (12.0-15.0); Lymphocyte % 22.5 % (19-41); Mean Corp Hgb Conc 35.8 g/dL (32-36); Mean Corpuscular Hgb 31.4 pg (27.0-32.0); Mean Corpuscular Volume 87.7 fL (81-99); Mean Platelet Vol. 12.8 fl (6.2-12.0); Monocyte# 0.69 X10^3/uL; Monocyte% 6.8 % (0-10); NRBC Flagged by Analyzer 0 % (0-5); Neutrophil # 6.93 X10^3/uL (2.7-7.7); Neutrophil % 67.9 % (47-70); Platelet Count 169 K/mm3 (150-450); RBC Distribution Width CV 14.2 % (11.6-14.6); RBC Distribution Width SD 45.4 fl (35.1-43.9); Red Blood Count 4.39 M/mm3 (4.2-5.4); White Blood Count 10.2 K/mm3 (4.4-11.0)
--- NOTE | 2024-07-10 20:43 | PCM.HP.OB ---
HPI - General General Date of Admission: 07/10/24 HPI Narrative AMY REDDY, is a 39 F who presents with episode of acute vaginal bleeding while wiping this evening. she denies any regular contrcations, she has good movement. she has had a ocmplicated by TTTS that has resolved since the mid second trimester after vessel ablation, and has had normal growth and fluid with both babies, originally had placenta previa and then vasa previa, which has since resolved. she had juts transferred back care to [place] and was planning delivery here. [facility] Medical History (Updated 07/10/24 @ 22:[address] Nelly Walker MD) Post depression Dysmenorrhea Acute pharyngitis, unspecified Wears contact lenses Alcohol use Low iron Injury of head and neck Syncope History of IBS Non-smoker Missed Abnormal Pap smear of cervix Urinary frequency Encounter for IUD removal COVID-19 delivery delivered Family history of hearing loss at age younger than 7 years Anxiety Frequent UTI GERD (gastroesophageal reflux disease) Home Medications ?Medication ?Instructions ?Recorded ?Last Taken ?Type docosahexaenoic acid 200 mg 200 mg PO DAILY 12/13/23 07/10/24 08:00 History capsule ( DHA) 200 mg famotidine 20 mg tablet (Pepcid) 20 mg PO DAILY #30 tabs 02/04/24 07/10/24 08:00 Rx 40 mg breast pump #1 ea 04/28/24 Unknown Rx ferrous sulfate 325 mg (65 mg 325 mg PO QODAY 06/30/24 06/30/24 History iron) tablet (Iron (ferrous sulfate)) naproxen 500 mg tablet 500 mg PO BID PRN PRN Pain #30 tabs 07/13/24 Unknown Rx oxycodone-acetaminophen 5 mg-325 1 tab PO Q4H PRN pain 7 days #20 07/13/24 Unknown Rx mg tablet (Percocet) tabs Allergy/AdvReac Type Severity Reaction Status Date / Time Penicillins Allergy Rash Verified 07/10/24 20:30 Sulfa (Sulfonamide Allergy Rash Verified 07/10/24 20:30 Antibiotics) Family History Unknown Ovarian cancer Grandfather Alcohol abuse Mother Anemia Anxiety Grandmother Pancreatic cancer Grandmother Diabetes Heart disease Father Hypertension Surgical History (Updated 07/10/24 @ 22:[address] 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 animals: Yes pets and animals: dog(s) history of recent travel: No sexually active: Yes Smoking Status: Never smoker second hand exposure: No alcohol intake: never substance use type: does not use well-balanced diet: about half the time caffeine: No eating out: 1-3 times/week during the past year weight has: remained stable what type of physical activity do you participate in: none alex/presybeterian: Jain seatbelt use: always do you feel safe at home: Yes additional social history: - [employer]/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, [employer] History 3 Elective abortions Hx Para 2 Spontaneous abortions 1 Hx # Term Pregnancies 1 Ectopic pregnancies Hx # Pregnancies 1 Multiple births 1 # of living children 3 Past Pregnancies Del. Date Name GA/Weeks Outcome Route Bth Weight Gen Labor Lgth Anesthesia Del Locatn Provider FOB 08/26/20 Tio 40 live - full term 8#1oz Male epidural [facility] 07/10/24 36 live - spinal [facility] 07/10/24 36 live - spinal [facility] Delivery Date: 08/26/20 Last Updated by: Marii Doherty distress NST FHR Rate Baby A Baseline: 150 Variability:: Moderate Accelerations:: 15 x 15 Decelerations:: None NST Reactive:: Yes FHR Category:: Category I Uterine Activity:: irregular FHR Rate Baby B Baseline: 150 Variability:: Moderate Accelerations:: 15 x 15 NST Reactive:: Yes ROS Constitutional Constitutional: Reports systems reviewed and no addt'l complaints, except as documented Eyes Eyes: Denies change in vision ENT HEENT: Reports systems reviewed and no addt'l complaints, except as documented; Denies headache(s) Cardiovascular Cardiovascular: Reports systems reviewed and no addt'l complaints, except as documented; Denies chest pain or dyspnea Respiratory/Chest Respiratory/Chest: Reports systems reviewed and no addt'l complaints, except as documented Gastrointestinal Gastrointestinal: Reports systems reviewed and no addt'l complaints, except as documented; Denies abdominal pain Genitourinary Genitourinary: Reports systems reviewed and no addt'l complaints, except as documented, contractions Details: present (irregular) and movement Details: present; Denies dysuria or genital lesions Musculoskeletal Musculoskeletal: Reports systems reviewed and no addt'l complaints, except as documented Neurologic Neurologic: Reports systems reviewed and no addt'l complaints, except as documented Endocrine Endocrinology: Reports systems reviewed and no addt'l complaints, except as documented Vital Signs Vital Signs Vital Signs: 07/10/24 20:07 07/10/24 20:07 07/10/24 20:07 Temperature Temperature Source Temporal Pulse Rate 97 Respiratory Rate Blood Pressure 130/89 H BP Systolic 130 BP Diastolic 89 07/10/24 20:07 07/10/24 20:07 Temperature 99.1 F Temperature Source Pulse Rate Respiratory Rate 18 Blood Pressure BP Systolic BP Diastolic Weight Weight: 171 lb 15.369 oz Body Mass Index (BMI) 30.4 Physical Exam Const alert, oriented x3, no apparent distress and healthy appearing HEENT normocephalic and moist oral mucous membranes Head and Scalp: atraumatic Neck full ROM, no lymphadenopathy, supple and thyroid normal General: trachea midline Lymph Lymphatic: no lymphadenopathy noted Chest inspection of chest normal Resp normal respiratory effort Cardio regular rate GI soft to palpation and non-tender GI Narrative: gravid Inspection: gravid external exam normal Manual OB Exam: estimated gestational size appropriate, presentation breech (both breech), dilated, effaced and station Extremity normal to inspection General Extremity: Negative for edema Skin no rashes or lesions noted Neuro no focal motor deficits and deep tendon reflexes 2+ bilaterally Motor Exam: strength 5/5 throughout and clonus absent Psych mental status grossly normal Labs Labs Labs: Blood Type A POSITIVE Antibody Screen NEGATIVE Hct 34.8 % (37-47) L Hgb 12.4 g/dL (12.0-15.0) Obstetrics Ultrasound Syphilis Total Ab Nonreactive (Nonreactive) Rubella IgG Antibody Reactive (Nonreactive) Hep Bs Antigen Non-Reactive (Nonreactive) Hepatitis C Antibody Non-Reactive (Nonreactive) Chlamydia DNA (SHABBIR) Negative (Negative) N.gonorrhoeae DNA (SHABBIR) Negative (Negative) HIV 1&2 Antibody Non-Reactive (Nonreactive) Glucose 1 Hr 50 gm 133 mg/dL (70-140) Rhogam given: No Miscellaneous Test Assessment & Plan (1) Vaginal bleeding during : COMMENT: 36 weeks plan to proceed with immediate deliveyr (2) History of maternal blood transfusion, currently : (3) Twin to twin transfusion in second trimester: COMMENT: s/p treatment at [facility] (4) History of delivery: COMMENT: plan RLTCS with (5) Monochorionic diamniotic twin gestation: COMMENT: confirmed with [facility], nl NT. plan 37 week delivery. testing per [facility]. Transfer of Care to [facility]. Plan delivery in [place]. (6) Advanced maternal age (AMA) in : COMMENT: genetics preconception nl (7) Cystic fibrosis carrier: COMMENT: is not a carrier of CF (8) Supervision of high-risk : COMMENT: PRR, , LOBITO 08/06/24, identical girls Tio, Bertrand (9) : QUALIFIERS: Weeks of gestation: 35 weeks Qualified Code(s): Z3A.35 - 35 weeks gestation of COMMENT: Genetic & Carrier testing completed with [facility] (10) Conceived by in vitro fertilization: COMMENT: embryo split after fertilization. plan echo at 22-24 PLAN: Plan recommend proceeding with immediate RLTCS due to high risk presentaiton
[2024-07-10] MEDS: Sodium Citrate/Citric Acid 30 ML UDC PO (21:00)
[2024-07-10] MEDS: Acetaminophen 500 MG Tablet PO (21:01)
[2024-07-10] MEDS: Lactated Ringers 1,000 ML 50 ML IV (21:02)
[2024-07-10 21:04] LABS: Syphilis Antibodies Nonreactive (Nonreactive)
[2024-07-10] MEDS: Clindamycin 900 MG/50 ML BAG 75 MG IV (21:09)
[2024-07-10] MEDS: Gentamicin IV 260 MG in Dextrose 5%-Water (50mL Bag) 50 ML 100 MG IVPB (21:20)
[2024-07-10 21:21] LABS: ALB/GLOB Ratio 1.2 RATIO (0.9-2.4); AST(SGOT) 23 U/L (<=31); Alanine Aminotransfer ALT/SGPT 9 U/L (<=34); Albumin, Serum 3.1 g/dL (3.5-5.0); Alkaline Phosphatase 162 U/L (35-104); Anion Gap 12 (5-15); BUN 12 mg/dL (4-19); BUN/Creat Ratio 14.6 RATIO (10-20); Calcium,Total 8.7 mg/dL (7.6-11.0); Carbon Dioxide 17.2 mmol/L (21.0-32.0); Chloride 105 mmol/L (98-108); Creatinine, Serum 0.81 mg/dL (0.70-1.20); EST Glomerular Filtration Rate 94 (>60); Estimated Creatinine Clearance 92.21 ml/min (50-250); Globulin 2.5 g/dL (2.2-4.2); Glucose 98 mg/dL (70-99); Potassium 4.1 mmol/L (3.3-5.1); Protein, Total 5.7 g/dL (5.9-8.4); Sodium Level 135 mmol/L (133-145); Total Bilirubin 0.35 mg/dL (0.00-1.30)
[2024-07-10] MEDS: TRANEXAMIC ACID 1,000 MG in 0.9% Normal Saline (100mL Bag) 100 ML 440 MG IV (21:29)
[2024-07-10 21:40] LABS: International Normalized Ratio 0.9; Prothrombin Time (Protime)PT. 12.4 SECONDS (11.7-14.9)
[2024-07-10 21:41] LABS: Fibrinogen 394 mg/dl (203-444); Partial Thromboplast Time 27.9 Seconds (24.1-36.2)
--- NOTE | 2024-07-10 22:19 | OP.PCM_ITS ---
Assessment & Plan (1) Vaginal bleeding during : COMMENT: 36 weeks plan to proceed with immediate deliveyr (2) History of maternal blood transfusion, currently : (3) Twin to twin transfusion in second trimester: COMMENT: s/p treatment at [place] and resolution (4) History of delivery: COMMENT: plan RLTCS with SM (5) Monochorionic diamniotic twin gestation: COMMENT: confirmed with [facility], nl NT. plan 37 week delivery. testing per [facility]. Transfer of Care to [facility]. Plan delivery in [place]. (6) Advanced maternal age (AMA) in : COMMENT: genetics preconception nl (7) Cystic fibrosis carrier: COMMENT: is not a carrier of CF (8) Supervision of high-risk : COMMENT: PRR, , LOBITO 08/06/24, identical girls PC Tio, Bertrand (9) : QUALIFIERS: Weeks of gestation: 35 weeks Qualified Code(s): Z3A. 35 - 35 weeks gestation of COMMENT: Genetic & Carrier testing completed with [facility] (10) Conceived by in vitro fertilization: COMMENT: embryo split after fertilization. plan echo at 22-24 (11) delivery delivered: COMMENT: RLTCS SM vb uterine window with vessels over it, twins monodi T TTS velamentous placental vessels girls (12) Uterine rupture: COMMENT: uterine window at time of (13) Status post bilateral salpingectomy: Maternal Data Information LOBITO Calculator Estimated Delivery Date Method Current WG Current Estimate 08/06/24 Manual 36w 2d embryo handley sfer on 11/19/23 (day 5) # 2 Operative Report (OB) Details Procedure Type: low transverse Date of Procedure: 07/10/24 Procedure Start Time: 21:28 Procedure Stop Time: 22:25 Pre-Operative Diagnosis: Other Other Pre-Operative diagnosis: see a/p comments Post-Operative Diagnosis: Same as Pre-operative diagnosis Classification: JOHNIE Type of Anesthesia: Spinal Special Medications: none Drain: Landis to straight drain Estimated Blood Loss: 900 Fluids Replaced: crystalloid Findings Description of surgery: Patient presented with an episode of vaginal bleeding no regular contractions but she had a complicated history of previous vasa previa with the vessels now being 2 cm away from the os previous mono Di with twin-twin transfusion that had resolved.Decision was made to proceed with repeat low-transverse immediately due to the high risk history and previous [facility] recommendation for delivery between 36 and 37 weeks Spinal anesthesia was placed without difficulty. Landis catheter was placed. The patient was placed in the dorsal supine position with leftward tilt. Patient was prepped and draped in the normal sterile fashion. Pfannenstiel skin incision was made with the scalpel and carried through to the underlying layer of fascia with the scalpel. Fascia was nicked in the midline and the incision extended laterally. The rectus bellies were dissected off superiorly and inferiorly with out complication both sharply and bluntly. The peritoneum was entered digitally. The incision was stretched and the uterus was visualized and a 5 x 3 cm uterine window was noted and it was discolored a pale blue which after further inspection was noted to be a placental vessel that was velamentous traversing across the uterine window. A low transverse uterine incision was made with the scalpel. The buttox was delivered atraumatically and the right and left legs were swept anteriorly and delivered, followed by the body and the arms which were swept anteriorly and delivered. Gentle traction was placed on the mentum to flex the head which was delivered without complication. the second sac was ruptured. The 's head was delivered atraumatically followed by the anterior and posterior shoulders without complication the rest of the infant delivered. The cord was clamped and cut and the infant was handed off to awaiting nurse. The placenta was delivered spontaneously immediately following and was noted to be intact and have a three- vessel cord. The uterus was exteriorized cleared of all clots and debris, and the incision was closed in a single layer closure using #1 Monocryl. The ovaries and fallopian tubes were noted to be within normal limits. Patient had desired sterilization and was counseled preoperatively regarding irreversibility and permanency. Therefore bilateral fallopian tubes were elevated and transected across using a LigaSure device starting proximally to distally without complication the entire fallopian tubes were removed. The uterus was returned to the maternal abdomen and gutters were cleared of all clots and debris. there was some oozing around the incision, which was treated with the bovie and then hemoblast. while bovieing part of the uterine incision, part of the small bowel came up through the assistants hands during retracing and came into the operative area, touching the end of the bovie while it was deactivated but still warm, the area was inspected and no injury seen. excellent hemostasis noted. The peritoneum was closed with 3-0 Monocryl in a running fashion. ligasure used to obtain hemoastasis of a vessel in the left rectus belly. Gloves were changed prior to fascial closure. Fascia was closed with 0 PDS in a running fashion. Subcutaneous tissue was copiously irrigated and the skin was closed with 3-0 Monocryl in a subcuticular fashion. Mepilex dressing was applied without complication. Patient was taken to recovery in stable condition. Surgical findings: uterine window with velamentous vessel over it, nl tubes ovaries. 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
[2024-07-10] MEDS: Oxytocin 15 Units/NS 250ml 15 UNITS/250 ML IV.SOLN 83 UNITS IV (23:16)
[2024-07-10] MEDS: Ketorolac 30 MG/ML Syringe IV (23:51)
[2024-07-10] MEDS: 0.9% Saline Lock 10 ML Syringe IV (23:51)
[2024-07-11] VITALS (14 sets, daily range): BP systolic 111–137; BP diastolic 77–93; PULSE 62–75; RESP 14–20; TEMP 36.2–37.1; O2SAT 97–100
[2024-07-11 01:01] LABS: Pathology Specimen OB SEE PATHOLOGY REPORT
[2024-07-11] MEDS: Lactated Ringers 1,000 ML 100 ML IV (03:39)
[2024-07-11] MEDS: Acetaminophen 500 MG Tablet 1000 MG PO ×4 (04:03→20:35)
[2024-07-11] MEDS: SimETHICONE 80 MG Chewable Tablet PO (04:13)
[2024-07-11] MEDS: Ketorolac 30 MG/ML Syringe IV ×3 (06:23→18:27)
[2024-07-11 06:51] LABS: Hematocrit 34.8 % (37-47); Hemoglobin 12.4 g/dL (12.0-15.0); Mean Corp Hgb Conc 35.6 g/dL (32-36); Mean Corpuscular Hgb 31.6 pg (27.0-32.0); Mean Corpuscular Volume 88.8 fL (81-99); Mean Platelet Vol. 12.8 fl (6.2-12.0); Platelet Count 152 K/mm3 (150-450); RBC Distribution Width CV 14.3 % (11.6-14.6); RBC Distribution Width SD 45.6 fl (35.1-43.9); Red Blood Count 3.92 M/mm3 (4.2-5.4); White Blood Count 17.4 K/mm3 (4.4-11.0)
[2024-07-11] MEDS: Senna/Docusate Sodium 1 Tablet PO (10:05)
[2024-07-11] MEDS: Enoxaparin 40 MG/0.4 ML Syringe SC (10:06)
[2024-07-11] MEDS: Famotidine 20 MG Tablet PO (10:06)
[2024-07-11] MEDS: 0.9% Saline Lock 10 ML Syringe IV ×3 (10:15→18:27)
--- NOTE | 2024-07-11 12:33 | PN.OBGYN_ITS ---
Subjective Subjective Patient doing well without complaints. Tolerating PO. Ambulating and voiding without difficulty. feeding well. Denies chest pain, shortness of breath, calf pain/swelling, fevers, chills, lightheadedness. Objective Data Objective Data Vital Signs: Vital Signs Temp Pulse Resp BP Pulse Ox O2 Del Method 98.8 F 62 16 117/85 H 99 Room Air 07/11/24 09:55 07/11/24 09:55 07/11/24 09:55 07/11/24 09:55 07/11/24 09:55 07/11/24 09:55 Oxygen Delivery Method Room Air Weight: 171 lb 15.369 oz Body Mass Index (BMI) 30.4 Intake & Output: Intake and Output for Last 24 Hours 07/09/24 07/10/24 07/11/24 23:59 23:59 23:59 Intake Total 216.5 / 216.5 612.5 / 612.5 Output Total 2049 / 2049 Balance 216.5 / 216.5 -1437.5 / -1437.5 Lab / Micro Data 07/11/24 06:25 07/10/24 20:10 Labs: Laboratory Results - last 24 hr 07/10/24 20:10: WBC 10.2, RBC 4.39, Hgb 13.8, Hct 38.5, MCV 87.7, MCH 31.4, MCHC 35.8, RDW Std Deviation 45.4 H, RDW Coeff of Mana 14.2, Plt Count 169, MPV 12.8 H , Immature Gran % (Auto) 1.200 H, Neut % (Auto) 67.9, Lymph % (Auto) 22.5, [place] % (Auto) 6.8, Eos % (Auto) 0.9, Baso % (Auto) 0.7, Absolute Neuts (auto) 6.9, Absolute Lymphs (auto) 2.30, Nucleated RBC % 0, PT 12.4, INR 0.9, APTT 27.9, Fibrinogen 394, Sodium 135, Potassium 4.1, Chloride 105, Carbon Dioxide 17.2 L, Anion Gap 12, BUN 12, Creatinine 0.81, Estim Creat Clear Calc 92.21, Est GFR (MDRD) Non-Af 94, BUN/Creatinine Ratio 14.6, Glucose 98, Calcium 8.7, Total Bilirubin 0.35, AST 23, ALT 9, Alkaline Phosphatase 162 H, Total Protein 5.7 L, Albumin 3.1 L, Globulin 2.5, Albumin/Globulin Ratio 1.2, Syphilis Total Ab Nonreactive, Blood Type A POSITIVE, Antibody Screen NEGATIVE 07/11/24 06:25: WBC 17.4 H, RBC 3.92 L, Hgb 12.4, Hct 34.8 L, MCV 88.8, MCH 31.6, MCHC 35.6, RDW Std Deviation 45.6 H, RDW Coeff of Mana 14.3, Plt Count 152, MPV 12.8 H ROS Constitutional Constitutional: Reports systems reviewed and no addt'l complaints, except as documented Cardiovascular Cardiovascular: Reports systems reviewed and no addt'l complaints, except as documented Respiratory/Chest Respiratory/Chest: Reports systems reviewed and no addt'l complaints, except as documented Gastrointestinal Gastrointestinal: Reports systems reviewed and no addt'l complaints, except as documented Physical Exam Const alert, oriented x3 and no apparent distress HEENT Head and Scalp: atraumatic Resp normal respiratory effort GI soft to palpation and non-tender Inspection: incision intact, healing well and drainage (none) Bimanual Exam - Vag & Uterus: uterus non-tender Uterus Palpation: uterus fundus firm (below Umbilicus) Assessment & Plan (1) delivery delivered: COMMENT: RLTCS SM vb uterine window with vessels over it, twins monodi TTTS velamentous placental vessels girls (2) Status post bilateral salpingectomy: (3) Uterine rupture: COMMENT: uterine window at time of PLAN: Plan s/p LTCS PPD # 1 1. routine post care 2. breast feeding- support given 3. rh positive 4. rubella immune
[2024-07-11] MEDS: Naproxen 500 MG Tablet PO (22:36)
[2024-07-12 03:00] VITALS: BP 122/88; PULSE 67; RESP 16; TEMP 36.2; O2SAT 97
[2024-07-12] MEDS: Acetaminophen 500 MG Tablet 1000 MG PO ×4 (03:05→21:07)
[2024-07-12] MEDS: Naproxen 500 MG Tablet PO ×3 (07:09→23:08)
[2024-07-12 09:00] VITALS: BP 128/87; PULSE 98; RESP 16; TEMP 36.5; O2SAT 100
[2024-07-12] MEDS: Senna/Docusate Sodium 1 Tablet PO (10:37)
[2024-07-12] MEDS: Famotidine 20 MG Tablet PO (10:37)
[2024-07-12] MEDS: Enoxaparin 40 MG/0.4 ML Syringe SC (10:38)
--- NOTE | 2024-07-12 12:55 | PCM.PN.OB ---
Subjective Subjective Patient doing well without complaints. Tolerating PO. Ambulating and voiding without difficulty. feeding well. Denies chest pain, shortness of breath, calf pain/swelling, fevers, chills, lightheadedness. Objective Data Objective Data Vital Signs: Vital Signs Temp Pulse Resp BP Pulse Ox O2 Del Method 97.7 F L 98 16 128/87 H 100 Room Air 07/12/24 09:00 07/12/24 09:00 07/12/24 09:00 07/12/24 09:00 07/12/24 09:00 07/12/24 09:00 Oxygen Delivery Method Room Air Weight: 171 lb 15.369 oz Body Mass Index (BMI) 30.4 Intake & Output: Intake and Output for Last 24 Hours 07/10/24 07/11/24 07/12/24 23:59 23:59 23:59 Intake Total 216.5 / 216.5 1264.17 / 1264.17 Output Total 3200 / 3200 1 / Balance 216.5 / 216.5 -1935.83 / -1935.83 -1 / -1 Lab / Micro Data 07/11/24 06:25 07/10/24 20:10 ROS Constitutional Constitutional: Reports systems reviewed and no addt'l complaints, except as documented Cardiovascular Cardiovascular: Reports systems reviewed and no addt'l complaints, except as documented Respiratory/Chest Respiratory/Chest: Reports systems reviewed and no addt'l complaints, except as documented Gastrointestinal Gastrointestinal: Reports systems reviewed and no addt'l complaints, except as documented Physical Exam Const alert, oriented x3 and no apparent distress HEENT Head and Scalp: atraumatic Resp normal respiratory effort GI soft to palpation and non-tender Inspection: incision intact, healing well and drainage (none) Bimanual Exam - Vag & Uterus: uterus non-tender Uterus Palpation: uterus fundus firm (below Umbilicus) Assessment & Plan (1) Status post bilateral salpingectomy: (2) Uterine rupture: COMMENT: uterine window at time of (3) delivery delivered: COMMENT: RLTCS SM vb uterine window with vessels over it, twins monodi TTTS velamentous placental vessels girls PLAN: Plan s/p LTCS PPD # 2 1. routine post care 2. breast feeding- support given 3. rh positive 4. rubella immune
[2024-07-12 14:00] VITALS: BP 119/76; PULSE 76; RESP 16; TEMP 36.6; O2SAT 98
--- NOTE | 2024-07-12 21:12 | NURSING ---
patient in chair feeding the twins since 2014, RN told the patient to notify her when done with feeds to do vitals. patient verbalized understanding
[2024-07-12 21:22] VITALS: BP 129/80; PULSE 72; RESP 16; TEMP 36.7; O2SAT 99
--- NOTE | 2024-07-13 00:07 | DCINST_ITS ---
Discharge Instructions Diet Discharge Diet: No restrictions DC O2, CPAP, BIPAP needs Home O2 Discharge instructions: No Dressing / Incision Discharge Activity: May Not Drive (for 2 weeks or while taking narcotic pain medications.), May Shower and May Take a Tub Bath (in 7 days) May shower in (days): 0 May resume sexual activity in: 4-6 weeks Weight Bearing Status: Full weight bearing Lifting Restrictions: 20 pounds Dressing / Incision Call your doctor if your incision/area has: Continuous Slow Oozing, Sudden Increased Bleeding, Increased Pain/ Swelling, Increased Redness and Foul Smelling Discharge Call your doctor if you observe: Fever of 101 or Higher and Using more than 1 pad per hour (for 2 hours) Suture Line Care: Avoid Pulling/Pushing and Avoid Pinching/Bending Cleanse incision/area with: Soap & Water and Keep Dressing Clean & Dry Follow Up Care Please Follow Up With: Nelly Walker MD When: Call [phone] to make an appointment for an incision check in 1-2 weeks. Test Results: Test results from this visit will be discussed in further detail at your follow- up appointment, if applicable. Discharge Plan Admission Admit Date/Time: 07/10/24 20:12 Attending Provider: Nelly Walker Primary Care Provider: Dwight Rios Discharge Orders/Prescriptions Prescriptions: New oxycodone-acetaminophen [Percocet] 5-325 mg tablet 1 tab PO Q4H PRN (Reason: pain) 7 Days Qty: 20 0RF naproxen 500 mg tablet 500 mg PO BID PRN PRN (Reason: Pain) Qty: 30 1RF No Action DHA 200 mg capsule 200 mg PO DAILY famotidine [Pepcid] 20 mg tablet 20 mg PO DAILY Qty: 30 6RF Patient Comments: Taking 40 mg BID (DME) breast pump Device See Rx Instructions .ROUTE .MEDSUPPLY Qty: 1 0RF Rx Instructions: As directed ferrous sulfate [Iron (ferrous sulfate)] 325 mg (65 mg iron) tablet 325 mg PO QODAY Referrals / Follow Up: Dwight Rios MD [Primary Care Provider] - Disposition Disposition (needs filled in before D/C Order can be placed): Home, Self Care
[2024-07-13] MEDS: Famotidine 20 MG Tablet PO ×2 (00:17→09:58)
[2024-07-13 02:30] VITALS: BP 123/91; PULSE 77; RESP 18; TEMP 36.7; O2SAT 98
[2024-07-13] MEDS: Acetaminophen 500 MG Tablet 1000 MG PO ×2 (03:07→09:58)
[2024-07-13] MEDS: Naproxen 500 MG Tablet PO (07:00)
[2024-07-13 07:59] VITALS: BP 125/88; PULSE 74; RESP 16; TEMP 36.4; O2SAT 100
--- NOTE | 2024-07-13 08:05 | PCM.PN.OB ---
Subjective Subjective Patient doing well without complaints. Tolerating PO. Ambulating and voiding without difficulty. Feeding well. Denies chest pain, shortness of breath, calf pain/swelling, fevers, chills, lightheadedness. Objective Data Objective Data Vital Signs: Vital Signs Temp Pulse Resp BP Pulse Ox O2 Del Method 97.6 F L 74 16 125/88 H 100 Room Air 07/13/24 07:59 07/13/24 07:59 07/13/24 07:59 07/13/24 07:59 07/13/24 07:59 07/13/24 07:59 Oxygen Delivery Method Room Air Weight: 171 lb 15.369 oz Body Mass Index (BMI) 30.4 Intake & Output: Intake and Output for Last 24 Hours 07/11/24 07/12/24 07/13/24 23:59 23:59 23:59 Intake Total 1264.17 / 1264.17 240 / 240 Output Total 3200 / 3200 1 / 1 Balance -1935.83 / -1935.83 -1 / -1 240 / 240 Lab / Micro Data 07/11/24 06:25 07/10/24 20:10 Physical Exam Const alert and oriented x3 HEENT normocephalic Eyes PERRL Neck full ROM Resp normal respiratory effort GI soft to palpation GI Narrative: FF below U. Dressing dry and intact Palpation: tender other (appropriately) Assessment & Plan (1) delivery delivered: COMMENT: RLTCS SM vb uterine window with vessels over it, twins(Elliott & Jenna) monodi TTTS velamentous placental vessels girls (2) Status post bilateral salpingectomy: PLAN: Plan s/p LTCS PPD # 3 1. routine post care 2. breast feeding- support given 3. rh positive 4. rubella immune 5. home today
--- NOTE | 2024-07-13 08:07 | PCM.DC.SUM ---
Providers Date of Admission: 07/10/24 Primary Care Physician: Dr. Dwight Rios MD Reason For Visit: REPEAT C SECTION Diagnosis Discharge Diagnosis (1) delivery delivered: Status: Acute Code(s): O82 - Encounter for delivery without indication (2) Status post bilateral salpingectomy: Status: Acute Code(s): Z90.79 - Acquired absence of other genital organ(s) Plan s/p LTCS PPD # 3 1. routine post care 2. breast feeding- support given 3. rh positive 4. rubella immune 5. home today Medications at Discharge Home Medications docosahexaenoic acid 200 mg capsule ( DHA) 200 mg PO DAILY 12/13/23 famotidine 20 mg tablet (Pepcid) 20 mg PO DAILY #30 tabs 02/04/24 breast pump #1 ea 04/28/24 ferrous sulfate 325 mg (65 mg iron) tablet (Iron (ferrous sulfate)) 325 mg PO QODAY 06/30/24 naproxen 500 mg tablet 500 mg PO BID PRN PRN Pain #30 tabs 07/13/24 oxycodone-acetaminophen 5 mg-325 mg tablet (Percocet) 1 tab PO Q4H PRN pain 7 days #20 tabs 07/13/24 Hospital Course Operations section Summary of Care Provided Hospital Course: Patient underwent section/twin with routine recovery, return of normal bowel and bladder function. Ambulating, voiding and tolerating PO. Stable for discharge home POD #3. Weight / BMI Weight Weight: 171 lb 15.369 oz Body Mass Index (BMI) 30.4 ABG / Lab / Microbiology Data 07/11/24 06:25 07/10/24 20:10 D/C Instructions Discharge Diet: No restrictions May shower in (days): 0 May resume sexual activity in: 4-6 weeks Weight Bearing Status: Full weight bearing Call your doctor if your incision/area has: Continuous Slow Oozing, Sudden Increased Bleeding, Increased Pain/ Swelling, Increased Redness and Foul Smelling Discharge Call your doctor if you observe: Fever of 101 or Higher and Using more than 1 pad per hour (for 2 hours) Suture Line Care: Avoid Pulling/Pushing and Avoid Pinching/Bending Cleanse incision/area with: Soap & Water and Keep Dressing Clean & Dry DC O2, CPAP, BIPAP Needs Home O2 Discharge instructions: No Please Follow Up With: Nelly Walker MD When: Call [phone] to make an appointment for an incision check in 1-2 weeks. Meaningful Use Info Meaningful Use Meaningful Use Diagnoses (Choose all that apply): None applicable Ischemic Stroke Statin Dosing Therapy Reference: STATIN DOSE THERAPY REFERENCE: * Patients > 75 years receive moderate or high dose statin therapy. * Patients 75 years or YOUNGER should receive HIGH intensity statin dose unless contraindicated. You will be required to document reason for non-treatment if statin daily dose does not meet guidelines. HIGH DOSE STATIN THERAPY DAILY Atorvastatin > than or = to 40 mg Rosuvastatin > than or = to 20 mg Amlodipine + Atorvastatin > than or = to 2.5/40 mg Ezetimibe + Simvastatin 10/80 mg Simvastatin 80mg Discharge Plan Admission Admit Date/Time: 07/10/24 20:12 Attending Provider: Nelly Walker Primary Care Provider: Dwight Rios Discharge Orders/Prescriptions Prescriptions: New oxycodone-acetaminophen [Percocet] 5-325 mg tablet 1 tab PO Q4H PRN (Reason: pain) 7 Days Qty: 20 0RF naproxen 500 mg tablet 500 mg PO BID PRN PRN (Reason: Pain) Qty: 30 1RF No Action DHA 200 mg capsule 200 mg PO DAILY famotidine [Pepcid] 20 mg tablet 20 mg PO DAILY Qty: 30 6RF Patient Comments: Taking 40 mg BID (DME) breast pump Device See Rx Instructions .ROUTE .MEDSUPPLY Qty: 1 0RF Rx Instructions: As directed ferrous sulfate [Iron (ferrous sulfate)] 325 mg (65 mg iron) tablet 325 mg PO QODAY Referrals / Follow Up: Dwight Rios MD [Primary Care Provider] - Disposition Disposition (needs filled in before D/C Order can be placed): Home, Self Care
[2024-07-13] MEDS: Enoxaparin 40 MG/0.4 ML Syringe SC (09:58)
[2024-07-13] MEDS: Senna/Docusate Sodium 1 Tablet PO (09:58)
[2024-07-13] MEDS: Albuterol 2.5 MG/3 ML VIAL.NEB. INHALATION (10:45)
[2024-07-13 10:46] VITALS: PULSE 74; RESP 17
[2024-07-13 11:00] VITALS: BP 125/79; PULSE 79; RESP 16; TEMP 36.6; O2SAT 100
--- NOTE | 2024-07-13 11:47 | NURSING ---
pt had an episode of coughing she states she couldnt catch her breath, made aware, pt's pulse ox was 99% on room air. Resp therapy called and pt given an albuterol treatment. called back and gave an order for a chest xray and albuterol inh. prn. This nurse called Xray and they stated they would call me when they could get the pt in for an xray.
--- NOTE | 2024-07-13 12:45 | RAD_ITS ---
PROCEDURE: CHEST PA AND LATERAL 07/13/2024 REASON FOR EXAM: COUGH TECHNIQUE: Frontal and lateral views of the chest. COMPARISON: No relevant prior. FINDINGS: Lungs: Lungs clear of pneumonia and congestion. Pleura: No pleural effusions, thickening, or pneumothorax. Heart: Normal in size and configuration. Mediastinum/Jhoana: Unremarkable. Great vessels: Unremarkable. Bones/soft tissues: Unremarkable. RAD/Chest PA and Lateral IMPRESSION: No active cardiopulmonary disease. Reading Location: [place] [id number]
--- NOTE | 2024-07-13 13:42 | PCM.PN.BLA ---
Progress Note seen for qheezing episode, improved with albuterol, states this has happened since covid and CAP. no CP now, breathing well Physical Exam Resp Auscultation: clear to auscultation bilaterally; Negative for crackles, rales, rhonchi or wheezes Cardio Rate: regular rate Rhythm: regular rhythm Heart Sounds: S1 normal and S2 normal Assessment & Plan Assessment/Plan (1) Wheezing: PLAN: Plan nl cxr, reassurance given, reviewed precautions, prescribe aluterol inhaler for home going
--- NOTE | 2024-07-13 14:54 | NURSING ---
chest xray clear per report, pt aware and discharge instructions reviewed with her and her spouse. discharged to home with her twin babies.
--- NOTE | 2024-07-13 15:12 | CASEMGMT ---
Social Work Assessment Labor and Delivery Unit Patient Address: [address] [place] [address] Phone number: [phone] Date of Referral: 07/11/24 Time of Referral:? 1941 Referred By: Dr. Walker Date of Intervention: ??07/13/24 Time of Intervention:? 1005 Reason for Referral:?mental health Sw completed chart review and acknowledges social work consult due to maternal mental health. Sw presented to bedside and introduced self to mother of baby (MOB- Juliana) and father of baby (FOB- Bertrand). Sw explained reason for sw involvement and completed psychosocial assessment. History obtained from: medical records, MOB and FOB. Household composition: Currently residing in the family home is RAGINI GUPTA and their older son, Tio (3). When twins are ready for discharge they will be included in residence when ready for discharge. Parents deny any housing or concerns, stating that it is safe and secure. Patient's parent/guardian status:?CANDY states that she and FOB have been together since 2017 after meeting online. [place] twins are third baby's for parents together. No concerns reported of domestic violence or intimate partner violence. Medical History: ?CANDY is 39 year old female who is 3, para 1- now 3 following labor and delivery of twins. CANDY received routine care during with several medical file clerk, including: JAZZ, KOFFI and Ankush. Twin was high risk, CANDY required several medical procedures throughout that could have caused the potential for her to lose Baby B. CANDY was planning on delivering baby roughly around 23 weeks as was recommended by medical file clerk, however MOB and baby's continued to do well and she was able to deliver at 36 weeks via delivery. Baby A: Elliott, was born weighing 6lb and had apgars of 7 and 9 at one adn five minutes of life, respectfully. Baby B: Jenna, was born weighing 5lb 7oz with apgars of 8 and 9 at one and five minutes of life, respectfully. CANDY states that she is working on breast feeding providing milk for her twins while also being open to using donor milk. Baby's will be followed by Dr. Sosa for pediatrics. Educational Status:? Both parents graduated from high school and MOB obtained her Bachelor's degree in education. No problems with reading, learning or comprehension. Financial Status: Both parents are gainfully employed outside of the home. 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 Supplies: All necessary baby supplies obtained, including: car seat, safe sleep space, clothes, diapers and wipes. Childcare/Caregiver(s):?MOB and FORicardo will be the primary caregivers to both baby's along with friends and grandparents when they need help. Transportation:?? No transportation barriers, both parents have their drivers license and reliable means of transportation. Programs/Agencies Involved: ???Parents are not connected to any community resources that assist them financially as they are over income. Children Services/Legal Issues:?No propr involvement with children services, no issues or concerns warranting referral to be made at this time. ?? Behavioral Health Issues: ??Mental Health History: RAGINI denies mental health history. CANDY states that she has been diagnosed with anxiety and did experience depression after the delivery of her first baby. CANDY is not prescribed any medications to help her manage her mental health symptoms. CANDY reports to feeling anxiety at baseline most days, but felt as though her mental health was managed as best it could be. CANDY reports to utilizing healthy and safe coping skills when she starts to feel anxious. CANDY reports to enjoy being outside and hiking. ??? Substance Use History:??Parents deny substance use prior to and during . Family History:??Parents deny family history of substance use or significant mental health diagnoses. ??? Drug Screens: No drug screens observed while completing chart review. Family/Social Stressors:? CANDY acknowledges the stress that comes along with bringing one baby home, let alone multiples. CANDY reports that she knows she will have a lot of help and is encouraged to take it one days at a time. Support Systems: CANDY reports that FOB and both sets of grandparents and family members are their biggest supports. Depression/Shaken Baby/Safe Sleeping: Sw educated parents on signs and symptoms of baby blues and depression and anxiety. MOB states that she will be able to recognize the different between her general anxiety and anxiety. FOB states that he would be able to recognize if MOB were struggling with her mental health and would know how to help and support her. MOB states that FOB will be able to help out with their son, or give her a break with the babies so that she can take some time to rest as well. Both parents express eagerness to be discharged to home and get settled in there. Sw educated parents on shaken baby prevention and ABCs of safe sleep. Parents express understanding. ASSESSMENT:? MOB and twin girls admitted following labor and delivery of . MOB conceived with IVF following a loss last year. Sw talked to MOB and FOB about how this loss has impacted this and delivery. MOB states that the was also high risk due to some concerns regarding baby B (Jenna). MOB states that there were a lot of challenges that they worked through during this . MOB reports to being connected with a virtual therapist prior to getting , and although she is not connected with them any more she is receptive to establishing with another provider who is able to use virtual appointments. Sw provided MOB with list of agencies that continue to provide virtual appointments. Parents were talkative and engaging throughout conversation. MOB looked at FOB a lot when answering questions. Nursing staff have reported that MOB is slightly overwhelmed and extremely tired. Sw discussed this with MOB. MOB states that she knows it is all a part of having twins, and states that it will be easier for her to relax when she is home. Parents have all necessary baby supplies and natural supports in place. PLAN:?? No other services requested or indicated. MOB and baby to be discharged when medically ready. Parents were provided literature regarding: signs and symptoms of baby blues and mood and anxiety disorders, [facility] Me [facility], shaken baby prevention, ABCs of safe sleep and a list of county resources that are available for them should any needs present themselves. - Sw also make [facility] referrals as requested and agreed upon with MOB. Salazar Patton, SULFUR BURNER, MARKET SUPERINTENDENT
== END 2024-07-13 14:30 | disposition home or self-care (01) | DRG 785 ==
PROVIDERS: Admitting Provider Obstetrics & Gynecology; PCP Internal Medicine; Visit Provider Obstetrics & Gynecology
DX: O43.023 Fetus-to-fetus placental transfusion syndrome, third trimester (principal); Z37.2 Twins, both liveborn; K21.9 Gastro-esophageal reflux disease without esophagitis; E61.1 Iron deficiency; O30.033 Twin pregnancy, monochorionic/diamniotic, third trimester; O99.62 Diseases of the digestive system complicating childbirth; O99.284 Endocrine, nutritional and metabolic diseases complicating childbirth; O34.211 Maternal care for low transverse scar from previous cesarean delivery; O99.893 Other specified diseases and conditions complicating puerperium; R06.2 Wheezing; Z3A.36 36 weeks gestation of pregnancy; Z88.0 Allergy status to penicillin; Z14.1 Cystic fibrosis carrier; Z30.2 Encounter for sterilization; Z86.16 Personal history of COVID-19; Z79.899 Other long term (current) drug therapy
CPT/HCPCS: 59025; 59050; 71046; 80053; 85025; 85027; 85384; 85610; 85730; 86780; 86850; 86900; 86901; 88302; 94640; 99221; A4216; G0378; J2405

== ENCOUNTER → 2024-07-27 | Outpatient (CLI) | payer OTHER, SELFPAY | END | disposition home or self-care (01) | LOC: LABSPEC 11:47 | PROVIDERS: PCP Internal Medicine; Referring Provider Nurse Practitioner Women's Health; Visit Provider Nurse Practitioner Women's Health | DX: R30.0 Dysuria (principal) | CPT/HCPCS: 87086 ==

== ENCOUNTER → 2024-08-26 | Outpatient (CLI) | payer OTHER, SELFPAY ==
[2024-08-31 21:08] LABS: HPV APTIMA, High Risk Negative (Negative)
== END | disposition home or self-care (01) ==
LOC: LABSPEC 10:53
PROVIDERS: PCP Internal Medicine; Referring Provider Obstetrics & Gynecology; Visit Provider Obstetrics & Gynecology
DX: Z12.4 Encounter for screening for malignant neoplasm of cervix (principal)
CPT/HCPCS: 87624; 88175; G0145